=== PATIENT | female | born 1950 | race Caucasian/White ===

== ENCOUNTER → 2016-06-26 | Outpatient (CLI) | payer BC ==
[~2016-06-26] MED LIST: ACT/30 PO; CALC600T9 PO; DICL-201 PO; HYDC25 PO; LISI40TA PO; METF1000 PO; NIFE90TA PO; SIMV40TA4 PO; [UNRECOGNIZED DRUG - OTHER] PO
--- NOTE | 2016-06-27 14:08 | MAMMOGRAPHY REPORT ---
BILATERAL DIGITAL SCREENING MAMMOGRAM TOMOSYNTHESIS WITH CAD: 06/26/2016 CLINICAL HISTORY: Routine screening. Patient has no complaints. Prior history of right breast canc er. TECHNIQUE: Breast tomosynthesis in addition to standard 2D mammography was performed. Current study was also evaluated with a Computer Aided Detection (CAD) system. COMPARISON: Comparison is made to exams dated: 06/20/2015 mammogram, 06/18/2014 mammogram, 05/15/2013 mammogram, 12/22/2012 mammogram, 06/23/2012 specimen, and 06/23/2012 localization - [facility]. BREAST COMPOSITION: The tissue of both breasts is almost entirely fatty. FINDINGS: There is expected architectural distortion and dystrophic calcification at the site of pr ior lumpectomy in the 6:00 anterior right breast. There is decreasing skin thickening of the right breast as well as decreasing trabecular edema. There are scattered benign-appearing microcalcificat ions bilaterally, and stable nodularity within the left breast. No new suspicious mass, architectur al distortion or cluster of microcalcifications is seen. IMPRESSION: ACR BI-RADS CATEGORY 2: BENIGN There is no mammographic evidence of malignancy. A 1 year screening mammogram is recommended. The p atient will receive written notification of the results. Approximately 10% of breast cancers are not detected with mammography. A negative mammographic repor t should not delay biopsy if a clinically suggestive mass is present. Cara Chaney M.D. ay/:06/26/2016 21:19:07 Upper Caser: Britney ROJAS(Wood)(Chucky), [facility] letter sent: Normal 1/2 BI-RADS Code: ACR BI-RADS Category 2: Benign
== END | disposition home or self-care (01) ==
LOC: C.MAMM 13:13
PROVIDERS: ATTEND Family Medicine
DX: Z12.31 Encounter for screening mammogram for malignant neoplasm of breast (principal); Z85.3 Personal history of malignant neoplasm of breast; Z08 Encounter for follow-up examination after completed treatment for malignant neoplasm

== ENCOUNTER → 2016-08-21 | Outpatient (CLI) | payer BC ==
[2015-08-18 14:29] VITALS: BP 130/68; PULSE 88
[2016-08-21 14:46] VITALS: BP 146/81; PULSE 85; TEMP 36.7; O2SAT 96
--- NOTE | 2016-08-21 17:07 | Radiation Oncology Follow-Up ---
Radiation Oncology Follow-Up Date of Visit Aug 21, 2016. Reason For Visit Annual follow-up Radiation Completion Date 09/26/12 Diagnosis (1) Breast cancer Status: Resolved Onset Date: 06/04/2012 Permanent Comment: Abnormal right breast mammogram 05/14/2012 Status post biopsy revealing lobular carcinoma 06/04/2012 status post right breast lumpectomy and sentinel lymph node biopsy 06/23/2012 Estrogen receptor positive, progesterone receptor positive, HER-2/ajay negative Stage pTIb pN0 Oncotype DX score of 12 Status post completion of radiation therapy 09/26/2012 received 6120 cGy Last Edited By: Tawana Fierro on Jun 21, 2015 16:06 Interim History She is doing well over this past year. She denies any changes to her breast. She has an area of dryness in the inframammary fold on the right side. This was seen by her dirt shoveler and a medication was prescribed. She feels this is not particularly help the area of dryness to resolve. She denies any pain or breast. She has noted no masses or tenderness and no change of the axilla. She's had no swelling of her arm. She is on anastrozole and denies side effects. Allergies Coded Allergies: Adhesives (Verified Allergy, Mild, RED SKIN, BLISTERS, 06/19/12) Povidone (Verified Allergy, Unknown, 07/08/09) Home Medications Scheduled Calcium Carbonate-Vitamin D (Calcium + D), 1,200 MG PO DAILY Diclofenac (Voltaren), 75 MG PO BID Hydrochlorothiazide (Hctz *), 50 MG PO QAM Lisinopril (Zestril), 40 MG PO QAM Metformin Hcl (Glucophage), 1,000 MG PO BID Nifedipine (Procardia Xl), 90 MG PO DAILY Pioglitazone Hcl (Actos), 30 MG PO HS Simvastatin (Zocor), 40 MG PO QPM [Anastozole], 1 MG PO qd Review of Systems Gastrointestinal: Symptoms: WNL Oral: Symptoms: No Problems Respiratory: Symptoms: WNL Urinary: Symptoms: WNL Skin: Symptoms: No Problems Other Skin Symptoms: Patient currently has red dry flaky rash under right breast - seeing derm Breast: Right Upper Arm Measurement: 50.0 Right Mid Arm Measurement: 34.0 Right Wrist Measurement: 18.3 Left Upper Arm Measurement: 50.9 Left Mid Arm Measurement: 34.6 Left Wrist Measurement: 17.7 Arm Dominence: Right Physical Exam Vital Signs Date Time Temp Pulse Resp B/P Pulse Ox O2 Delivery O2 Flow Rate FiO2 08/21/16 14:46 36.7 85 16 146/81 96 Pain: Pain Location: None Patient Pain Scale: 0 - 10 Initial Pain Intensity: 0.0 Fatigue: None General Appearance: + obese Eyes: normal inspection, EOMI ENT: normal ENT inspection, hearing grossly normal Neck: supple, no adenopathy, thyroid normal Respiratory/Chest: lungs clear, no respiratory distress, no accessory muscle use Breast: Breast examination reveals well-healed incisions of the right breast there are no masses or tenderness no axillary adenopathy. She does have an area of dry skin along the inframammary fold which extends slightly to the nipple. Using the [place] score cosmesis she has a good outcome. The left breast showed no masses or tenderness and no axillary adenopathy. Cardiovascular: regular rate, rhythm, no gallop, no murmur Extremities: no pedal edema Neurologic/Psychiatric: no motor/sensory deficits, alert, normal mood/affect Skin: warm/dry Lymphatic: no adenopathy Additional Studies BILATERAL DIGITAL SCREENING MAMMOGRAM TOMOSYNTHESIS WITH CAD: 06/26/2016 CLINICAL HISTORY: Routine screening. Patient has no complaints. Prior history of right breast cancer. TECHNIQUE: Breast tomosynthesis in addition to standard 2D mammography was performed. Current study was also evaluated with a Computer Aided Detection (CAD ) system. COMPARISON: Comparison is made to exams dated: 06/20/2015 mammogram, 06/18/2014 mammogram, 05/15/2013 mammogram, 12/22/2012 mammogram, 06/23/2012 specimen, and [facility]. BREAST COMPOSITION: The tissue of both breasts is almost entirely fatty. FINDINGS: There is expected architectural distortion and dystrophic calcification at the site of prior lumpectomy in the 6:00 anterior right breast. There is decreasing skin thickening of the right breast as well as decreasing trabecular edema. There are scattered benign-appearing microcalcifications bilaterally, and stable nodularity within the left breast. No new suspicious mass, architectural distortion or cluster of microcalcifications is seen. IMPRESSION: ACR BI-RADS CATEGORY 2: BENIGN There is no mammographic evidence of malignancy. A 1 year screening mammogram is recommended. The patient will receive written notification of the results. Approximately 10% of breast cancers are not detected with mammography. A negative mammographic report should not delay biopsy if a clinically suggestive mass is present. Cara Chaney M.D. ay/:06/26/2016 21:19:07 Hot Frame Tender: Britney JULIAN)(Chucky), [facility] letter sent: Normal 1/2 BI-RADS Code: ACR BI-RADS Category 2: Benign Dictated by: Cara Cahney MD Assessment & Plan Plan: I gave her samples of Aquaphor to try for the dry skin of the inframammary fold. Continue with scheduled mammography. Continue regular follow-up with her primary care physician. We asked her to return to our office in 1 year. She continues on the Arimidex. She'll call if she has any questions or concerns in the interim. Total Time In Follow-Up I spent 20 minutes speaking to the patient and performing examination. I spent 15 minutes reviewing information and completing this note. Copy To Ellis Altamirano III, M.D.; Joelle Meredith PA-C
== END | disposition home or self-care (01) ==
LOC: C.ONC 14:01
PROVIDERS: ATTEND Physician Assistant Medical
DX: Z08 Encounter for follow-up examination after completed treatment for malignant neoplasm (principal); Z92.3 Personal history of irradiation; Z85.3 Personal history of malignant neoplasm of breast

== ENCOUNTER → 2017-03-29 | Outpatient (CLI) | payer BC ==
--- NOTE | 2017-03-29 15:24 | MAMMOGRAPHY REPORT ---
BILATERAL DIGITAL DIAGNOSTIC MAMMOGRAM TOMOSYNTHESIS WITH CAD AND TARGETED BILATERAL ULTRASOUND: 03/04 CLINICAL HISTORY: History of right breast cancer status post lumpectomy and radiation therapy in 2012 . The patient reports flulike symptoms approximately 2 weeks ago. Last Saturday she also noted diffu se redness and warmth of the right breast; the redness has now decreased and now the skin is peeling. She notes occasional sharp pains in the right breast. She was placed on medication for possible sh ingles. She denies any left breast symptoms. TECHNIQUE: Breast tomosynthesis in addition to standard 2D mammography was performed. Current study was also evaluated with a Computer Aided Detection (CAD) system. Bilateral CC and MLO 2-D and tomosy nthesis images were obtained. COMPARISON: Comparison is made to exams dated: 03/29/2017 ultrasound - [facility], 06/26/2016 mammogram, 06/20/2015 mammogram, 06/18/2014 mammogram, and 05/15/2013 mammogram - [facility]. BREAST COMPOSITION: There are scattered areas of fibroglandular density in both breasts. FINDINGS: Again noted are post surgical changes in the right central breast from prior lumpectomy, i ncluding stable density, architectural distortion, and coarse benign dystrophic calcifications at the lumpectomy bed. A linear scar marker denotes a scar on the right breast. There is new diffuse righ t breast skin thickening as well as trabecular thickening most prominent in the right upper outer jose j drant. There is possible mild trabecular thickening in the left upper outer quadrant. The remainder of both breasts are stable compared to prior exams, without suspicious masses, calcifications, or ar eas of architectural distortion noted. Scattered bilateral benign-appearing calcifications are not s ignificantly changed. On clinical exam of the right breast there is diffuse right breast erythema with some areas of skin p eeling, especially inferiorly and laterally. Targeted ultrasound was performed of the right breast t o evaluate the skin and trabecular thickening seen mammographically. There is diffuse thickening of the skin of the right breast. Additionally, there is diffuse hyperechogenicity of the breast parench yma which corresponds with the trabecular thickening/edema seen mammographically. No discrete mass i s seen within the breast parenchyma. Targeted ultrasound was performed of the left upper outer quadrant in the region of the possible trab ecular thickening seen mammographically. In the left breast at 2:00, approximately 15 cm from the ni pple, there is an intradermal nearly anechoic cystic 2 x 3 mm mass, which is benign given the intrade rmal location and likely represents an epidermal inclusion/sebaceous cyst. Mild skin thickening is s een in the adjacent breast in the left 2 to 3:00 breast. No suspicious masses are evident. IMPRESSION: ACR BI-RADS CATEGORY 4: SUSPICIOUS, TARGETED ULTRASOUND ACR BI-RADS CATEGORY 4: SUSPICIO US 1. New diffuse right breast skin thickening as well as trabecular thickening in the right upper outer quadrant, without a suspicious mass or fluid collection noted mammographically or sonographically. Given the clinical history of diffuse right breast erythema, considerations include mastitis or infla mmatory breast cancer. Given that the symptoms including the erythema have improved per the patient, mastitis is favored although inflammatory breast cancer cannot be excluded at this time. Recommend clinical follow-up; if the symptoms do not resolve in a timely manner then recommend surgical consult ation for a skin punch biopsy. 2. Small 3 mm intradermal cyst in the left breast at 2:00, which is benign and likely represents a s ebaceous/epidermal inclusion cyst. A phone call was made to the physician's office to confirm faxed results were received. The patient has been verbally notified of the results. Approximately 10% of breast cancers are not detected with mammography. A negative mammographic report should not delay biopsy if a clinically suggestive mass is present. Akiko Sherwood M.D. ah/:03/29/2017 13:53:48 Firmware Engineer: Christina Gomez, [facility] letter sent: Abnormal 4/5 BI-RADS Code: ACR BI-RADS Category 4: Suspicious Ultrasound BI-RADS: ACR BI-RADS Category 4: Suspici ous
== END | disposition home or self-care (01) ==
LOC: C.MAMM 08:23
PROVIDERS: ATTEND Physician Assistant
DX: L53.9 Erythematous condition, unspecified (principal); R92.8 Other abnormal and inconclusive findings on diagnostic imaging of breast; N60.02 Solitary cyst of left breast; Z85.3 Personal history of malignant neoplasm of breast

== ENCOUNTER → 2017-06-28 | Outpatient (CLI) | payer OTHER ==
--- NOTE | 2017-07-01 15:51 | MAMMOGRAPHY REPORT ---
BILATERAL DIGITAL SCREENING MAMMOGRAM TOMOSYNTHESIS WITH CAD: 06/28/2017 CLINICAL HISTORY: Asymptomatic. Personal history of breast cancer. TECHNIQUE: Breast tomosynthesis in addition to standard 2D mammography was performed. Current study was also evaluated with a Computer Aided Detection (CAD) system. COMPARISON: Comparison is made to exams dated: 03/29/2017 mammogram, 03/29/2017 ultrasound, 7 mammogram, 06/20/2015 mammogram, 06/18/2014 mammogram, and 05/15/2013 mammogram - [facility]. BREAST COMPOSITION: There are scattered areas of fibroglandular density in both breasts. FINDINGS: No suspicious masses, calcifications, or areas of architectural distortion are noted in ei ther breast. There are stable postsurgical changes in the right central breast from prior lumpectomy , including stable density, architectural distortion, and coarse benign dystrophic calcifications at the lumpectomy bed. The previously seen diffuse right breast skin thickening on the March 2017 exa m has decreased back to a baseline appearance and is benign. Scattered bilateral benign-appearing ca lcifications are not significantly changed. IMPRESSION: ACR BI-RADS CATEGORY 2: BENIGN There is no mammographic evidence of malignancy. A 1 year screening mammogram is recommended. The pa tient will receive written notification of the results. Approximately 10% of breast cancers are not detected with mammography. A negative mammographic report should not delay biopsy if a clinically suggestive mass is present. Akiko Sherwood M.D. /:06/28/2017 15:17:37 Cemetery Workers Supervisor: Christina ROJAS(Wood)(M), [facility] letter sent: Normal 1/2 BI-RADS Code: ACR BI-RADS Category 2: Benign
== END | disposition home or self-care (01) ==
LOC: C.MAMM 10:25
PROVIDERS: ATTEND Physician Assistant
DX: Z12.31 Encounter for screening mammogram for malignant neoplasm of breast (principal)

== ENCOUNTER 2024-02-04 15:53 | Inpatient (IN) ==
--- NOTE | 2024-02-04 16:37 | Emergency Department Note ---
Impression & Plan Atrial fibrillation with rapid ventricular response, Heart failure with acute decompensation, type unknown ED Provider Note NAME: LEO JIMENEZ AGE: 73 SEX: F : 1950 ARRIVES VIA: Walk-In INFORMANT: Patient ED PROVIDER(S): Alonso Nath DO CHIEF COMPLAINT: shortness of breath HPI: Patient is a 73-year-old female with a past medical history of breast cancer who presents to the ER for shortness of breath. She notes her symptoms started in December. She admits to increased weight gain of about 40 pounds since then. Her shortness of breath has gotten significantly worse over the past week. She notes that her heart rates been up intermittently. She denies any headache or change in vision. No chest pain or pressure. No dysuria, urgency, or frequency. No other exacerbating or remitting factors. No history of A-fib or any other irregular heartbeats. ADDITIONAL HISTORY OBTAINED: Per HPI Chronic Medical/Social Conditions Affecting Care: Per HPI PAST MEDICAL HISTORY:See Below PAST SURGICAL HISTORY:See Below FAMILY HISTORY:See Below SOCIAL HISTORY:See Below HOME MEDICATIONS:See Below ALLERGIES:See Below VITALS:See Below PHYSICAL EXAMINATION: GENERAL: Sitting up in bed, alert, morbidly obese EYE EXAM: normal conjunctiva. PERRL and EOM's grossly intact. OROPHARYNX: no exudate, no erythema, lips, buccal mucosa, and tongue normal and mucous membranes are moist NECK: supple, no nuchal rigidity, no adenopathy, non-tender LUNGS: Clear to auscultation. Normal chest wall mechanics HEART: no murmurs, S1 normal and S2 normal ABDOMEN: abdomen soft, non-tender, normo-active bowel sounds, no masses, no rebound or guarding. UPPER EXTREMITIES: upper extremities are grossly normal. LOWER EXTREMITIES: Pitting edema in the bilateral lower extremities tracking up to the hips NEURO EXAM: Normal sensorium, cranial nerves II-XII grossly intact, normal speech, no gross weakness of arms, no gross weakness of legs. No drift. Finger to nose intact. Gross sensation intact. MEDICAL DECISION MAKING: Patient is a 73-year-old female who presents ER for the below stated complaint. IV was established blood work was obtained. Labs show no significant leukocytosis or anemia. INR unremarkable. BMP with creatinine 1.2. Glucose was mildly elevated at 155. LFTs bilirubin was unremarkable. Troponin was negative. BNP slightly elevated at 378. Flu RSV and COVID was negative. Chest x-ray was clean. She did have extensive pitting edema. EKG confirms A-fib with RVR. She was given 10 mg bolus of Cardizem and placed on a Cardizem drip. Heart rate trended down to 100 and systolic pressures trended down to upper 90s/low 100. Held on Lasix which was my initial intent as the blood pressures trended down with the Cardizem. Will defer to the hospitalist once blood pressures rebounded slightly. Heart rate did improve significantly with the Cardizem. She was updated bedside discussed with hospitalist for further evaluation management treatment. Consults/Care Managements Discussions: Per [facility] Triage Nursing notes reviewed. Limited review of prior medical records performed Vital Signs: reviewed and remarkable for tachycardic Differential diagnosis: Cardiac ischemia, aortic dissection, pulmonary embolism, pneumothorax, pneumonia, pericarditis, myocarditis, esophageal rupture, GERD, cholecystitis, pancreatitis, musculoskeletal, as well as other pathologies. ER treatment provided: See below Diagnostics interpreted by me include EKG and cardiac monitoring as listed below: -Cardiac Monitoring: An order was placed for continuous cardiac monitoring. The monitor shows a rate of 140 with A-fib rhythm. -ECG: A-fib rate of 137 Normal axis No PVCs Nonspecific ST wave changes in the inferior lateral leads QTc 389 -Laboratory studies:Interpreted by me as stated above in [facility] and shown below. Imaging studies: Xrays: As interpreted by me: Portable AP upright 1 view of the chest shows no focal infiltrate CTs show: none Procedures:none Critical Care: I have personally spent 31 minutes of critical care time in the direct management of this patient. This includes bedside care, interpretation of diagnostic studies, and testing, discussion with consultants, patient, and family members, and other required patient management activities. This 31 minutes is in excess of all separately billable procedures. Past Med/Surg History Problem List (Updated 02/04/24 @ 19:12 by Alex Aguilar MD) Heart failure with acute decompensation, type unknown Atrial fibrillation with rapid ventricular response Social History Smoking Status: Never smoker Feels Safe at Home: Yes Allergies Allergies Allergy/AdvReac Type Severity Reaction Status Date / Time adhesive Allergy Mild RED SKIN, Verified 02/04/24 17:20 BLISTERS Home Meds Home Medications Medication Instructions Recorded Confirmed aspirin 81 mg tablet,delayed 81 mg PO HS 02/04/24 02/04/24 release atorvastatin 40 mg tablet 40 mg PO QAM 02/04/24 02/04/24 cholecalciferol (vitamin D3) 50 50 mcg PO QAM 02/04/24 02/04/24 mcg (2,000 unit) tablet (Vitamin D3) cinnamon bark 500 mg capsule 500 mg PO AMHS 02/04/24 02/04/24 (Cinnamon) diclofenac sodium 75 mg 75 mg PO DAILY PRN Pain 02/04/24 02/04/24 tablet,delayed release empagliflozin 10 mg tablet 10 mg PO QAM 02/04/24 02/04/24 (Jardiance) lisinopril 40 mg tablet 40 mg PO QAM 02/04/24 02/04/24 magnesium 500 mg tablet 15 mg PO DAILY 02/04/24 02/04/24 metformin 500 mg tablet,extended 500 mg PO QAM 02/04/24 02/04/24 release 24 hr nifedipine 90 mg tablet,extended 90 mg PO QAM 02/04/24 02/04/24 release 24 hr pioglitazone 30 mg tablet 30 mg PO HS 02/04/24 02/04/24 Results & Data (ED) Vital Signs Vital Signs - 24 hr 02/04/24 15:57 02/04/24 16:07 02/04/24 16:22 Temperature 36.7 C Temperature Source Temporal Artery Scan Pulse Rate 138 H 132 H Pulse Rate [Apical] Pulse Rhythm Pulse Rhythm [Apical] Respiratory Rate 20 Respiratory Effort / Characteristics Non-Labored Spontaneous Short of Breath SOB on Exertion Respiratory Depth Normal Respiratory Pattern Blood Pressure 127/71 Blood Pressure [Left Arm] Blood Pressure Mean 89 Blood Pressure Mean [Left Arm] Blood Pressure Position Sitting Pulse Oximetry 93 Oxygen Delivery Method Room Air Oxygen Flow Rate Sepsis Recent Fever Within 48 Hours No Sepsis New/Unexplained Change in Mental Status N/A Sepsis Action Taken by Nursing No Action Required 02/04/24 16:26 02/04/24 16:26 02/04/24 17:39 Temperature Temperature Source Pulse Rate 144 H Pulse Rate [Apical] 123 H Pulse Rhythm Irregular Pulse Rhythm [Apical] Irregular Respiratory Rate 20 19 Respiratory Effort / Characteristics Non-Labored Spontaneous Respiratory Depth Normal Respiratory Pattern Regular Blood Pressure Blood Pressure [Left Arm] 120/81 Blood Pressure Mean Blood Pressure Mean [Left Arm] 94 Blood Pressure Position Pulse Oximetry 96 96 97 Oxygen Delivery Method Room Air Room Air Room Air Oxygen Flow Rate 0 Sepsis Recent Fever Within 48 Hours Sepsis New/Unexplained Change in Mental Status Sepsis Action Taken by Nursing 02/04/24 18:00 Temperature Temperature Source Pulse Rate Pulse Rate [Apical] 102 H Pulse Rhythm Pulse Rhythm [Apical] Irregular Respiratory Rate 19 Respiratory Effort / Characteristics Non-Labored Spontaneous Respiratory Depth Normal Respiratory Pattern Regular Blood Pressure Blood Pressure [Left Arm] 104/84 Blood Pressure Mean Blood Pressure Mean [Left Arm] 90 Blood Pressure Position Pulse Oximetry 98 Oxygen Delivery Method Room Air Oxygen Flow Rate Sepsis Recent Fever Within 48 Hours Sepsis New/Unexplained Change in Mental Status Sepsis Action Taken by Nursing Laboratory Data 02/04/24 16:10 02/04/24 16:10 Lab Results 02/04/24 02/04/24 Range/Units 16:10 19:02 WBC 7.12 (4.8-10.8) K/ul RBC 4.17 L (4.20-5.40) M/uL Hgb 12.3 (12.0-16.0) g/dl Hct 38.2 (37.0-47.0) % MCV 91.6 (80.0-100.0) fL MCH 29.5 (25.0-34.0) pg MCHC 32.2 (32.0-36.0) g/dL RDW Std Deviation 54.0 H (36.4-46.3) fL RDW Coeff of Cecile 16.1 H (11.5-14.5) % Plt Count 308 (130-400) K/uL MPV 9.6 (9.4-12.4) fL Immature Gran % (Auto) 0.6 % Neut % (Auto) 79.1 % Lymph % (Auto) 11.9 % [place] % (Auto) 5.8 % Eos % (Auto) 2.2 % Baso % (Auto) 0.4 % Neut # (Auto) 5.63 (1.40-6.50) K/uL Lymph # (Auto) 0.85 L (1.20-3.40) K/uL [place] # (Auto) 0.41 (0.11-0.59) K/uL Eos # (Auto) 0.16 (0.00-0.50) K/uL Baso # (Auto) 0.03 (0.00-0.20) K/uL Immature Gran # (Auto) 0.04 (0.01-0.20) K/uL PT 11.5 (9.0-12.0) Seconds INR 1.1 (0.9-1.1) APTT 26 (21-31) Seconds PTT Ratio 1.0 Sodium 139 (136-145) mmol/L Potassium 4.4 (3.5-5.1) mmol/L Chloride 103 (98-107) mmol/L Carbon Dioxide 29 (21-32) mmol/L Anion Gap 7 (3-11) BUN 23 (6-23) mg/dl Creatinine 1.25 H (0.6-1.2) mg/dl Est Cr Clr Drug Dosing Not Reportable Est GFR ( Amer) 49.1 ml/min Est GFR (Non-Af Amer) 42.3 ml/min BUN/Creatinine Ratio 18.4 (10-20) Glucose 155 H (70-99(Fasting)) mg/dl POC Glucose 126 H (70-99) mg/dl Calcium 10.9 H (8.6-10.3) mg/dl Total Bilirubin 0.6 (0.2-1.0) mg/dl AST 10 L (13-39) U/L ALT 8 (7-52) U/L Alkaline Phosphatase 88 (34-104) U/L Troponin I High Sens 6.1 (0-14) pg/ml B-Natriuretic Peptide 378 H (0-100) pg/ml Total Protein 7.2 (6.0-8.3) gm/dl Albumin 4.0 (3.4-5.0) gm/dl Globulin 3.2 (2.5-4.0) gm/dl Albumin/Globulin Ratio 1.3 (0.9-2) SARS-CoV-2 (PCR) NEGATIVE (Negative) Influenza Type A (PCR) Negative (Neg) Influenza Type B (PCR) Negative (Neg) RSV (RT-PCR) Negative (Neg) Administered Medications Discontinued Medications Diltiazem HCl (Diltiazem Hcl 5 Mg/Ml 5 Ml Vial) 10 mg IV NOW STA Stop: 02/04/24 17:23 Last Admin: 02/04/24 17:39 Dose: 10 mg Documented By: BIJAN Co-signed By: Diltiazem HCl 125 mg/ Dextrose 125 mls @ 5 mls/hr IV .Q24H AFUA; Protocol Stop: 03/05/24 17:29 Last Admin: 02/04/24 18:50 Dose: Not Given Documented By: BIJAN Miscellaneous (Stat Iv Infusion Titration Per Protocol) 1 each N/A NOW STA Stop: 02/04/24 17:23 Last Admin: 02/04/24 18:24 Dose: Not Given Documented By: BIJAN Imaging Data Radiologist's Impression: Chest X-Ray 02/04/24 16:07 XR chest 1V portable CLINICAL HISTORY: Chest pain, nonspecific TECHNIQUE: Single frontal radiograph of the chest was obtained. Comparison: None available at the time of this dictation. FINDINGS: Exam is limited by underpenetration. Cardiomegaly is noted. The lungs are clear. No evidence of pleural effusion or pneumothorax. IMPRESSION: No acute chest disease. Cardiomegaly is noted. ACT 112: Negative or not required by law. Electronically signed by: Sunny Dennison M.D. 02/04/2024 4:54 PM Discharge Plan Visit Data Chief Complaint: Cardiac Assessment Stated Complaint: A-FIB, HEART FAILURE, [place], DOC REF ED Provider: Alonso Nath Discharge Problem: Atrial fibrillation with rapid ventricular response, Heart failure with acute decompensation, type unknown Forms Stand Alone Forms: My [facility] Prescriptions Prescriptions: No Action pioglitazone 30 mg tablet 30 mg PO HS cholecalciferol (vitamin D3) [Vitamin D3] 50 mcg (2,000 unit) Tablet 50 mcg PO QAM aspirin [Aspirin Low-Strength] 81 mg Tablet,Delayed Release (Dr/Ec) 81 mg PO HS cinnamon bark [Cinnamon] 500 mg Capsule 500 mg PO AMHS atorvastatin 40 mg tablet 40 mg PO QAM nifedipine 90 mg tablet extended release 24hr 90 mg PO QAM lisinopril 40 mg tablet 40 mg PO QAM metformin 500 mg tablet extended release 24 hr 500 mg PO QAM Jardiance 10 mg tablet 10 mg PO QAM diclofenac sodium 75 mg tablet,delayed release (DR/EC) 75 mg PO DAILY PRN (Reason: Pain) Rx Instructions: uses rarely magnesium 500 mg Tablet 15 mg PO DAILY Referrals Referrals: Joelle Meredith PA-C [Primary Care Provider] - Discharge Problem: Heart failure with acute decompensation, type unknown Qualifiers: Heart failure type: unspecified Qualified Code(s): I50.9 - Heart failure, unspecified
--- NOTE | 2024-02-04 16:56 | XRay Report ---
XR chest 1V portable CLINICAL HISTORY: Chest pain, nonspecific TECHNIQUE: Single frontal radiograph of the chest was obtained. Comparison: None available at the time of this dictation. FINDINGS: Exam is limited by underpenetration. Cardiomegaly is noted. The lungs are clear. No evidence of pleur al effusion or pneumothorax. IMPRESSION: No acute chest disease. Cardiomegaly is noted. ACT 112: Negative or not required by law. Electronically signed by: Sunny Dennison M.D. 02/04/2024 4:54 PM
[2024-02-04 17:00] LABS: Basophils # (auto) 0.03 K/uL (0.00-0.20); Basophils % (auto) 0.4 %; Eosinophils # (auto) 0.16 K/uL (0.00-0.50); Eosinophils % (auto) 2.2 %; Hematocrit (blood only) 38.2 % (37.0-47.0); Hemoglobin 12.3 g/dl (12.0-16.0); Immature Granulocytes # (auto) 0.04 K/uL (0.01-0.20); Immature Granulocytes % (auto) 0.6 %; Lymphocytes # (auto) 0.85 K/uL (1.20-3.40); Lymphocytes % (auto) 11.9 %; Mean Corpuscular Hemoglobin 29.5 pg (25.0-34.0); Mean Corpuscular Hgb Conc 32.2 g/dL (32.0-36.0); Mean Corpuscular Volume 91.6 fL (80.0-100.0); Mean Platelet Volume 9.6 fL (9.4-12.4); Monocytes # (auto) 0.41 K/uL (0.11-0.59); Monocytes % (auto) 5.8 %; Neutrophils # (auto) 5.63 K/uL (1.40-6.50); Neutrophils % (auto) 79.1 %; Platelet Count 308 K/uL (130-400); RDW Coefficient of Variation 16.1 % (11.5-14.5); Red Blood Count 4.17 M/uL (4.20-5.40); White Blood Count 7.12 K/ul (4.8-10.8)
[2024-02-04 17:13] LABS: Alanine Aminotransferase 8 U/L (7-52); Albumin Globulin Ratio 1.3 (0.9-2); Alkaline Phosphatase 88 U/L (34-104); Anion Gap 7 (3-11); Aspartate Aminotransferase 10 U/L (13-39); BUN Creatinine Ratio 18.4 (10-20); Bilirubin,Total 0.6 mg/dl (0.2-1.0); Blood Urea Nitrogen 23 mg/dl (6-23); Calcium 10.9 mg/dl (8.6-10.3); Carbon Dioxide 29 mmol/L (21-32); Chloride 103 mmol/L (98-107); Est GFR (African American) 49.1 ml/min; Est GFR (Non-African American) 42.3 ml/min; Globulin 3.2 gm/dl (2.5-4.0); Glucose 155 mg/dl (70-99(Fasting)); Potassium 4.4 mmol/L (3.5-5.1); Sodium 139 mmol/L (136-145); Total Protein 7.2 gm/dl (6.0-8.3)
[2024-02-04 17:15] LABS: INR 1.1 (0.9-1.1); Partial Thromboplastin Time 26 Seconds (21-31); Prothrombin Time 11.5 Seconds (9.0-12.0)
[2024-02-04 17:16] LABS: Influenza A virus by PCR Negative (Neg); Influenza B virus by PCR Negative (Neg); RSV by PCR Negative (Neg); SARS CoV2 RNA(COVID-19) Ceph NEGATIVE (Negative)
[2024-02-04 17:18] LABS: Troponin I High Sensitivity 6.1 pg/ml (0-14)
[2024-02-04] MEDS: dilTIAZem HCl 5 MG/ML 5 ML VIAL IV STA (17:39)
--- NOTE | 2024-02-04 17:40 | History & Physical Report ---
Date of Service February 04, 2024 Assessment & Plan (1) Atrial fibrillation with rapid ventricular response: (2) Heart failure with acute decompensation, type unknown: Plan Patient went to her PCP as she has been feeling fatigued all summer. Reported to have retaining fluids in her feet and legs; has gained 40 pounds in the last 2-3 weeks. Reports increasing shortness of breath even with minor exertion. Her Fitbit noted her irregular heart rate. Her creatinine is mildly elevated to 1.25, calcium slightly elevated 10.9 BNP elevated to 378 Chest x-ray personally reviewed; reveals cardiomegaly with mild pulmonary congestion For atrial fibrillation; will start on metoprolol tarttate 25 mg every 6 hour; [id number] score of at least 3, echo pending. Will start on heparin. For CHF; will start on Lasix IV twice daily. Strict input and output monitoring. Will hold lisinopril, nifedipine for the time being as her blood pressure is on the lower side. 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 Started on insulin. Will need to stop pioglitazone Hypertensionhold lisinopril, nifedipine. Started on metoprolol. Dyslipidemiacontinue Lipitor. Aspirin currently on hold; seems to be on it for primary prevention. Discussed with at bedside. Full code DVT prophylaxis heparin Time spent evaluating patient, direct bedside care, chart review, placing orders, interpretation of diagnostic studies, discussion with consultants, patient, and family members, as well as other required patient management activities is 75 minutes Please note the above document was generated using voice recognition software. It may contain grammatical, syntax or spelling errors. Any formal questions or concerns about the content, text or information contained within the body of this dictation should be directly addressed to the provider for clarification History of Present Illness Chief Complaint: Referred for atrial fibrillation with RVR Primary Care Provider: Joelle Meredith PA-C Patient is a 73-year-old female with possible history of primary hyperparathyroidism, dyslipidemia, type 2 diabetes mellitus, hypertension, CKD stage IIIb, morbid obesity, history of breast cancer Patient went to her PCP as she has been feeling fatigued all summer. She was reported to have retaining fluids in her feet and legs; has gained 40 pounds in the last 2-3 weeks. Reports increasing shortness of breath even with minor exertion. Her Fitbit noted her irregular heart rate. Patient was referred for admission to our ED. Patient has only has remote echo from 2002 which showed normal EF. On presentation to the ED, patient was normotensive, afebrile and was in atrial fibrillation. Her creatinine is mildly elevated to 1.25, calcium slightly elevated 10.9 BNP elevated to 378 Chest x-ray personally reviewed; reveals cardiomegaly with mild pulmonary congestion Patient was referred for admission to the hospital. Allergies Allergy/AdvReac Type Severity Reaction Status Date / Time adhesive Allergy Mild RED SKIN, Verified 02/04/24 17:20 BLISTERS Home Medications Medication Instructions Recorded Confirmed Type aspirin 81 mg tablet,delayed 81 mg PO HS 02/04/24 02/04/24 History release atorvastatin 40 mg tablet 40 mg PO QAM 02/04/24 02/04/24 History cholecalciferol (vitamin D3) 50 50 mcg PO QAM 02/04/24 02/04/24 History mcg (2,000 unit) tablet (Vitamin D3) cinnamon bark 500 mg capsule 500 mg PO AMHS 02/04/24 02/04/24 History (Cinnamon) diclofenac sodium 75 mg 75 mg PO DAILY PRN Pain 02/04/24 02/04/24 History tablet,delayed release empagliflozin 10 mg tablet 10 mg PO QAM 02/04/24 02/04/24 History (Jardiance) lisinopril 40 mg tablet 40 mg PO QAM 02/04/24 02/04/24 History magnesium 500 mg tablet 15 mg PO DAILY 02/04/24 02/04/24 History metformin 500 mg tablet,extended 500 mg PO QAM 02/04/24 02/04/24 History release 24 hr nifedipine 90 mg tablet,extended 90 mg PO QAM 02/04/24 02/04/24 History release 24 hr pioglitazone 30 mg tablet 30 mg PO HS 02/04/24 02/04/24 History Past Med/Surg History Problem List (Updated 02/04/24 @ 19:12 by Alex Aguilar MD) Heart failure with acute decompensation, type unknown Atrial fibrillation with rapid ventricular response Social History Smoking Status: Never smoker Feels Safe at Home: Yes Physical Exam Physical Exam: Constitutional: Alert oriented x 3; morbidly obese. Respiratory: Bilateral clear breath sounds. Cardiovascular: Irregular, no murmur, no edema Vessels: no JVD or carotid bruit Chest: normal inspection of chest Abdomen: normal bowel sounds, soft, nontender, no hepatosplenomegaly Musculoskeletal: 3+ pitting edema present up to knee Neurologic: PERRL, EOMI, accommodation nl, no face palsy, no dysarthria CN's II- XI intact bilaterally and moves all extremities Psychiatric: A+Ox3, euthymic affect Results & Data Results & Data Vital Signs (Past 12 Hours) Vital Signs Temp Pulse Resp BP Pulse Ox O2 Del Method O2 Flow Rate 02/04/24 16:26 144 H 20 96 Room Air 02/04/24 16:26 96 Room Air 0 02/04/24 16:22 132 H 02/04/24 15:57 36.7 C 138 H 20 127/71 93 Room Air
[2024-02-04] MEDS ORDERED: GLUCAGON FOR INJ 1 MG VIAL SQ PRN (18:04)
[2024-02-04] MEDS ORDERED: GLUCOSE 40% GEL 15 GM TUBE PO PRN (18:04)
[2024-02-04] MEDS ORDERED: GLUCOSE 10 TAB/TUBE PO PRN (18:04)
[2024-02-04] MEDS ORDERED: CARBOHYDRATES FOR HYPOGLYCEMIA PO PRN (18:04)
[2024-02-04] MEDS ORDERED: DEXTROSE 50% 50 ML SYRINGE IV PRN (18:04)
[2024-02-04] MEDS: STAT IV Infusion **Titration per Protocol STA (18:24)
[2024-02-04] MEDS ORDERED: Heparin IV Adult Wt-Based Low-Dose w/ INITIAL Bolus Protocol IV STA (18:38)
[2024-02-04] MEDS: dilTIAZem HCL 125 MG in DEXTROSE 5% 100 ML IV SCH (18:50)
[2024-02-04 19:37] LABS: Thyroid Stimulating Hormone 7.229 uIu/ml (0.300-4.500)
[2024-02-04] MEDS: INSULIN ASPART PER UNIT CHARGE SC SCH (19:37)
[2024-02-04] MEDS: METOPROLOL TARTRATE 25 MG TAB PO SCH (19:38)
[2024-02-04] MEDS: HEPARIN SOD (PORCINE) 1000 UNIT/ML IV ONE (19:39)
[2024-02-04] MEDS: HEPARIN SODIUM/DEXTROSE 25,000 UNITS/500 ML BAG IV SCH (19:39)
[2024-02-04 20:13] LABS: T4 Free Thyroxine 1.15 ng/dl (0.61-1.60)
[2024-02-04] MEDS ORDERED: ONDANSETRON INJ 2 MG/ML 2 ML VIAL IV PRN (21:18)
[2024-02-04] MEDS ORDERED: POLYETHYLENE (MIRALAX) 17 GM PACK PO PRN (21:18)
[2024-02-04] MEDS ORDERED: ACETAMINOPHEN 325 MG TAB PO PRN (21:18)
[2024-02-05 02:50] LABS: Hematocrit (blood only) 35.5 % (37.0-47.0); Hemoglobin 11.4 g/dl (12.0-16.0); Mean Corpuscular Hemoglobin 29.2 pg (25.0-34.0); Mean Corpuscular Hgb Conc 32.1 g/dL (32.0-36.0); Mean Corpuscular Volume 90.8 fL (80.0-100.0); Mean Platelet Volume 9.7 fL (9.4-12.4); Platelet Count 283 K/uL (130-400); RDW Coefficient of Variation 15.9 % (11.5-14.5); RDW Standard Deviation 53.2 fL (36.4-46.3); Red Blood Count 3.91 M/uL (4.20-5.40); White Blood Count 6.65 K/ul (4.8-10.8)
[2024-02-05 02:59] LABS: BUN Creatinine Ratio 20.3 (10-20); Calcium 10.5 mg/dl (8.6-10.3); Creatinine Clr Calc Pharmacy 65.5 ml/min; Est GFR (African American) 52.6 ml/min; Est GFR (Non-African American) 45.4 ml/min; Potassium 4.2 mmol/L (3.5-5.1)
--- OUTSIDE RECORDS SUMMARY | 2024-02-05 03:01 | External Medical Summary | Summary of Care ---
Author Name Unknown Organization [facility] Address [address] [place] [address] Phone [phone] Care Team Providers Care Cotton Broker Name Role Phone Adarsh VALENTE MD, Ellis Davis Primary Care Provider [phone] Reason for Visit * Reason Onset Date Comments Encounter Created in Error 01/26/2024 Encounter Details Date Type Department Care Team (Late st Contact Info) Description 01/26/2024 Telephone Family Practice [facility] [address] [place] [address] Reza Knott MD [address] [place] [address] Encounter Created in Error Allergies Active Allergy Reactions Criticality Noted Date Comments Adhesive Tape 11/25/2008 sore sensitive skin Penicillins Medium 01/14/2024 Not effective on pt Povidone 07/08/2009 documented as of this encounter (statuses as of 01/26/2024) Medications Medication Sig Dispensed Refills Start Date End Date Status Blood Glucose Monitoring Suppl (ONETOUCH ULTRA SYSTEM) W/DEVICE KIT Use up to four times a day as directed 1 Kit 12/19/2016 Active Aspirin 81 MG TabletIndications:Ty pe 2 diabetes mellitus with hemoglobin A1c goal of less than 7.0% ([facility]) Take 1 Tab by mouth daily. 30 Tab 12/19/2016 Active Vitamin D 50 MCG (1999 UT) Oral Capsule Take 2,000 Units by mouth in the morning. Active OneTouch Ultra In Vitro Strip (Glucose Blood)Indications:Ty pe 2 diabetes mellitus with hemoglobin A1c goal of less than 7.5% (HCC) USE UP TO FOUR TIMES DAILY DIRECTED 400 Strip 2 03/16/2023 Active AlyshaElizabeth Krueger Lancorly 30GIndications:Type 2 diabetes mellitus with stage 3 chronic kidney disease and hypertension (HCC) USE TO CHECK GLUCOSE UP TO 4 TIMES DAILY DIRECTED 400 Each 2 03/16/2023 Active Magnesium 400 MG Oral Tablet Take by mouth. Active Atorvastatin Calcium 40 MG Oral Tablet (Lipitor) Take 1 Tablet by mouth in the morning. 90 Tablet 1 08/27/2023 Active Lisinopril 40 MG Oral TabletIndications:HT N, goal below 140/90 Take 1 Tablet by mouth in the morning. 90 Tablet 2 08/27/2023 Active Diclofenac Sodium 75 MG Oral Tablet Delayed Release (Voltaren)Indication s:Primary localized osteoarthrosis, lower leg, unspecified laterality Take 1 Tablet by mouth in the morning. With food.. 90 Tablet 1 08/27/2023 Active Additional Information Patient not taking.Reported on 01/16/2024 metFORMIN HCl ER 500 MG Oral Tablet Extended Release 24 Hour (Glucophage XR)Indications:Type 2 diabetes mellitus with diabetic peripheral angiopathy without gangrene, unspecified whether usp insulin use (HCC) Take 1 Tablet by mouth in the morning. 90 Tablet 1 08/27/2023 Active NIFEdipine ER Osmotic Release 90 MG Oral Tablet Extended Release 24 Hour (Procardia XL)Indications:HTN, goal below 140/90 Take 1 Tablet by mouth in the morning. 90 Tablet 1 08/27/2023 Active Pioglitazone HCl 30 MG Oral Tablet (Actos) Take 1 Tablet by mouth in the morning. 90 Tablet 2 08/27/2023 Active Cinnamon 500 MG Oral Capsule Take 1 Capsule by mouth in the morning and 1 Capsule before bedtime. Active Empagliflozin 10 MG Oral Tablet (Jardiance) Take 1 Tablet by mouth in the morning. 90 Tablet 3 01/14/2024 Active documented as of this encounter (statuses as of 01/26/2024) Active Problems Problem Noted Date Diagnosed Date Hyperparathyroidism, primary 01/14/2024 Type 2 diabetes mellitus wit h stage 3 chronic kidney disease and hypertension 08/27/2023 Chronic kidney disease, stage 3b 11/15/2020 Overview: Per CKD protocol Hypertension associated with stage 3b chronic kidney disease due to type 2 diabetes mellitus 10/11/2020 Overview: Per CKD protocol Type 2 diabetes mellitus wit h diabetic peripheral angiopathy without gangrene 07/27/2020 History of lobular carcinoma of breast 9 Disorder of parathyroid gland, unspecified 06/05 Morbid obesity with BMI of 50.0-59.9, adult 12/01 Diabetes mellitus with perip heral angiopathy without gangrene 12/19/2017 Elevated parathyroid hormone 12/21/2016 [facility] current use of aromatase inhibitor HTN, goal below 140/90 08/08/2015 Overview: Per HTN Protocol #27. DYSLIPIDEMIA, GOAL LDL BELOW 100 05/12/2009 Overview: Per Lipid Taxonomy. History of malignant melanoma of skin 03/15/2009 Overview: History MELANOMA low lateral R neck: pT1a 0.53mm/172.5 Status post joint replacement 03/08/2008 ADVANCE DIRECTIVE INFORMATION 05/08/2006 Overview: No, Advance Directive brochure given to patient at prior appointment. LOC PRIM [id number] 12/11/2004 Generalized osteoarthritis documented as of this encounter (statuses as of 01/26/2024) Resolved Problems Problem Noted Date Diagnosed Date Resolved Date Lobular carcinoma of right breast 07/27/2020 03/08/2021 Type 2 diabetes mellitus wit h stage 3 chronic kidney disease and hypertension 12/19/2017 10/14/19 21 Overview: Per CKD protocol Prediabetes 07/16/2017 12/19/2017 Overview: Per Prediabetes protocol #1 Diabetes mellitus due to und erlying condition with diabetic chronic kidney disease 04/24/2017 Kidney disease, chronic, sta ge III (GFR 30-59 ml/min) 02/14/2015 01/18/2018 Overview: Per CKD protocol #1 Lobular breast cancer 07/16/20122018 Lobular carcinoma of breast 06/18/2012 04/24/2017 BMI 50.0-59.9, adult 06/18/201218/ 018 HTN, GOAL BELOW 140/80 01/21/201209/07 Overview: Per HTN Protocol #27. Obesity, morbid (more than 1 00 lbs over ideal weight or BMI > 40) 08/30/2009 03/07/2017 Overview: Per Obesity Taxonomy ICD-10 update of inactive term HTN, GOAL BELOW 130/80 06/29/200901/23 Overview: Per HTN Taxonomy. Type 2 diabetes mellitus wit h hemoglobin A1c goal of less than 7.0% 03/17/2009 04/24/2017 Overview: Modified per Diabetes protocol #14. ICD-10 update of inactive term Dyslipidemia, goal LDL below 160 09/10/2007 05/12/2009 Overview: Per Lipid Taxonomy. DM type 2, not at goal 10/23/200603/17 Overview: Modified per Diabetes protocol #14. HTN, goal below 140/90 06/29 Overview: Per HTN Taxonomy. Undiagnosed cardiac murmurs 06/21/2017 Morbid obesity, BMI not known 08/30/2009 Overview: Per Obesity Taxonomy documented as of this encounter (statuses as of 01/26/2024) Immunizations Name Administration Dates Next Due COVID-19 mRNA, LNP-s, No Pre serve, 2-Dose Series (FanLib) 05/16/2021,09/15/2020,08/25/2020 COVID-19, MRNA-LNP, 23-24, P F, 30 MCG/0.3 mL, 12 YRS AND ABOVE, IM ([employer]-Comirnat) 05/15/2023 Covid-19, Mrna, Lnp-s, Pf, B ivalent, 30 Mcg, IM, 12 yrs and above (Pfizer) 03/08/2022 Pneumococcal Conjugate Vacc, 13 Valent (Prevnar) 12/15/2014 Pneumococcal Polysaccharide PPV23 (Pneumovax) 12/20/2015,02/05/2007 Season Influenza, Quad, PF, Adjuvanted, 65+ Yrs, IM (FLUAD) 04/22/2020 Seasonal Influenza, PF, 6 M & above, IM , (FluLaval or Fluzone) 06/11/2018 Seasonal Influenza, QUAD, wi th Preserv, 6 mons & Above, 0.5 mL, IM 04/11/2017 Seasonal Influenza, Quadriva lent Hd (Fluzone Hd) 02/26/2023,02/22/2022,02/22/2021 Seasonal Influenza, Quadriva lent, No Preserve, IM 06/21/2016,06/17/2015 Seasonal Influenza, Split, I IV3, With Preserve, Inj 06/17/2014,06/05/2013,05/30/2012,03/29,03/28/2010,03/28/2009,03/08/2008 ,04/09/2006 TD, Preservative Free 05/08/2006 TDAP (age 10 and older)(Boostrix) 02/26/2022,11/2011 Zoster Vaccine Recombinant (Shingrix) 07/27/2019 ,03/05/2019 documented as of this encounter Social History Tobacco Use Types Packs/Day Years Used Date Smoking Tobacco: Never Smokeless Tobacco: Never Alcohol Use Standard Drinks/Week Comments Yes 0 (1 standard drink = 0.6 oz pur e alcohol) ocassional PHQ-2 Answer Date Recorded PHQ Adult Total Score 0 08/22/2022 Hunger Vital Sign Answer Date Recorded Within the past 12 months, y ou worried that your food would run out before you got the money to buy more. Never true 01/15/20 24 Within the past 12 months, t he food you bought just didn't last and you didn't have money to get more. Never true 01/15/2024 Childcare Answer Date Recorded Do you feel overwhelmed with taking care of a child, family member or friend? No 01/15/2024 Does your family need help f inding childcare? (Household - for ages 0-17 years) Not on file 01/15/2024 Clothing Answer Date Recorded Have you been unable to get clothing when it was really needed? No 01/15/2024 Is your family able to get c lothes or diapers when needed? (Household - for ages 0-17 years) Not on file 01/15/2024 Personal Safety Answer Date Recorded Do you feel unsafe or have concerns for your saf ety? No 01/15/2024 Do you have concerns for you r family's safety? (Household - for ages 0-17 years) Not on file 01/15/2024 Utilities Answer Date Recorded Do you have trouble paying y our heating, water, or electric bill? No 01/15/2024 Is your family able to pay t he heat, water, or electric bill? (Household - for ages 0-17 years) Not on file 01/15/2024 Does your family have access to good internet? (Household - for ages 0-17 years) Not on file 01/15/2024 Employment Status Answer Date Recorded Are you unemployed or without regular income? No 01/15/2024 Does the household have a re lar source of income? (Household - for ages 0-17 years) Not on file 01/15/2024 Social Connections Answer Date Recorded How often do you feel lonely or isolated from th ose around you? Never 01/15/2024 Financial Resource Strain Answer Date R ecorded Do you have any trouble payi ng for your medications, or do you think you might in the future? No 01/15/2024 Does your family have troubl e paying for medicine? (Household - for ages 0-17 years) Not on file 01/15/2024 Transportation Needs Answer Date Record ed Do you have trouble getting a ride to medical visits or work? (Adult - for ages 18 years and over) Not on file 01/15/2024 Does your family have a hard time getting a ride to doctors visits? (Household - for ages 0-17 years) Not on file 01/15/2024 Has lack of transportation k ept you from medical appointments, meetings, work, or from getting things needed for daily living? Check all that apply. No 01/15/2024 Do you (or your family) have trouble finding or paying for a ride (transportation)? (Household - for ages 0-17 years) Not on file 01/15/2024 Housing Stability Answer Date Recorded Do you currently live in a s helter or have no steady place to sleep at night? No 01/15/2024 Do you think you are at risk of becoming homeless? (Adult - for ages 18 years and over) Not on file 01/15/2024 Does your family worry about paying for your home or becoming homeless? (Household - for ages 0-17 years) Not on file 0 01/15/2024 Are you homeless or worried that you might be in the future? No 01/15/2024 Are you (or your family) ashley eless or worried that you might be in the future? (Household - for ages 0-17 years) Not on file Food Insecurity Answer Date Recorded Do you need food for this week? No 01/15/2024 Are you able to get enough f ood for your family? (Household - for ages 0-17 years) Not on file 01/15/2024 Does your family need food t his week? (Household - for ages 0-17 years) Not on file 01/15/2024 Do you always have enough fo od for your family? (Household - for ages 0-17 years) Not on file 01/15/2024 Sex and Gender Information Value Date Recorded Sex Assigned at Female 07/27/2019 11:08 AM EST Gender Identity Female 07/27/2019 11:08 AM EST Sexual Orientation Straight 07/27/2019 11 :08 AM EST Job Start Date Occupation Industry Not on file Not on file Not on file documented as of this encounter Plan of Treatment Upcoming Encounters Date Type Department Care Team (Late st Contact Info) Description 01/28/2024 12:00 PM EDT Appointment Radiology, [address] [place] [place] [address] 01/28/2024 3:00 PM EDT Appointment Radiology, [address] [place] [address] 02/20/2024 9:00 AM EDT Office Visit [facility] [address] [place] [address] Joelle Meredith PA-C [address] [place] [address] 02/25/2024 2:15 PM EDT Office Visit Inter[facility] Center, [facility] [address] [place] [address] Tyrell Castro DO [address] [place] [phone] 02/27/2024 11:00 AM EDT Office Visit [facility] [place] [address] Joelle Meredith PA-C [address] [place] [address] 07/22/2024 3:00 PM EST Office Visit Endocrinology [address] [place] [phone] Julian Freitas MD [address] [facility] [place] [address] Health Maintenance Due Date Last Done Comments Fecal Occult Blood Test 1994 Sigmoidoscopy 1994 Adult Wellness Visit 12/08/2015 Colonoscopy 03/04/2019 03/04/2009 Depression Screening 08/23/2023 08/22/2022, 12/16/19 15 Albumin/Creatinine Ratio 09/01/2023 023, 08/15/2021, 07/28/2020, Additional history exists Influenza Vaccine (FLU shot) (#1) 2024 02/26/2023, 02/22/2022, 02/22/2021, Additional history exists B-12 03/06/2024 03/06/2023, 02/02, 02/22/2021, Additional history exists GFR 07/16/2024 01/14/2024, 08/02, 03/06/2023, Additional history exists HbA1c 07/16/2024 01/14/2024, 08/02, 03/06/2023, Additional history exists Diabetic Foot Exam 08/26/2024 08/27/2023, 0 02/22/2022, 02/22/2021, Additional history exists CKD PHOS USE SMARTSET 98643 09/26/2024 04/2 11/2023, 08/27/2023, 03/06/2023, Additional history exists Cologuard 10/12/2024 10/12/2021, 05/0 09/2021, 10/04/2021 Colorectal Cancer Screening 10/12/2024 Mammogram 10/15/2024 10/16/2023, 09/02, 09/20/2022, Additional history exists Diabetic Eye Exam 01/12/2025 01/13/2024, , 01/09/2022, Additional history exists CKD HGB USE SMARTSET 47854 01/13/202501/13, 08/27/2023, 08/31/2022, Additional history exists Lipid Panel 08/26/2028 08/27/2023, 08/03, 08/15/2021, Additional history exists DXA Scan 01/14/2031 01/15/2024, 03/05/2016 DTaP,Tdap,and Td Vaccines (3 - Td or Tdap) 02/27/2032 02/26/2022, 01/07/2012, 05/08/2006, Additional history exists Pneumococcal Vaccine: 65+ Years Completed 12/20/2015, 12/15/2014, 02/05/2007 Zoster Vaccines Completed 07/27/2019, 03/05/2019 COVID-19 Vaccine Discontinued 05/15/2023, 11/2021, 05/16/2021, Additional history exists HPV (Gardasil) Vaccine Aged Out No lo nger eligible based on patient's age to complete this topic Hepatitis B Vaccine Aged Out No longe r eligible based on patient's age to complete this topic MENINGOCOCCAL (MENACTRA/MENVEO) Aged Out No longer eligible based on patient's age to complete this topic documented as of this encounter Medical Devices Not on filedocumented as of this encounter Care Teams Cotton Broker Relationship Specialty Start Date End Date Ellis Altamirano III, MD [address] [place] [address] PCP - General Family Medicine 07/23/18 documented as of this encounter
--- OUTSIDE RECORDS SUMMARY | 2024-02-05 03:01 | External Medical Summary | Summary of Care ---
Author Name Unknown Organization [facility] Address [address] [place] [address] Phone [phone] Care Team Providers Care Sales Recruiting Coordinator Name Role Phone Adarsh VALENTE MD, Ellis Davis Primary Care Provider Reason for Referral * Precert (Within 10 days (routine)) - Authorized Specialty Diagnoses / Procedures Referred By Contac t Referred To Contact Radiology Diagnoses Hyperparathyroidism (HCC) Hypercalcemia Procedures NM PARATHYROID SCAN (SPECT & CT) Julian Freitas MD [address] [place] [address] Referral ID Status Reason Start Date Expiration Date V isits Requested Visits Authorized [id number] Authorized 01/16/[phone] Reason for Visit * Precert (Within 10 days (routine)) - Authorized Specialty Diagnoses / Procedures Referred By Contac t Referred To Contact Radiology Diagnoses Hyperparathyroidism (HCC) Hypercalcemia Procedures NM PARATHYROID SCAN (SPECT & CT) Julian Freitas MD [address] [place] [address] Referral ID Status Reason Start Date Expiration Date V isits Requested Visits Authorized [id number] Authorized 01/16/[phone] Encounter Details Date Type Department Care Team (Latest Contact Info) Description 01/28/2024 11:50 AM EDT - 01/28/2024 2:36 PM EDT Hospital Encounter Radiology, [facility] [address] [place] [address] Arrived Discharge Disposition: Home - Self Care Allergies Active Allergy Reactions Criticality Noted Date Comments Adhesive Tape 11/25/2008 sore sensitive skin Penicillins Medium 01/14/2024 Not effective on pt Povidone 07/08/2009 documented as of this encounter (statuses as of 01/29/2024) Medications Medication Sig Dispensed Refills Start Date End Date Status Blood Glucose Monitoring Suppl (Farmainstant ULTRA SYSTEM) W/DEVICE KIT Use up to four times a day as directed 1 Kit 12/19/2016 Active Aspirin 81 MG TabletIndications:Ty pe 2 diabetes mellitus with hemoglobin A1c goal of less than 7.0% (HCC) Take 1 Tab by mouth daily. 30 Tab 12/19/2016 Active Vitamin D 50 MCG (2000 UT) Oral Capsule Take 2,000 Units by mouth in the morning. Active PrimeAgain,Inc Ultra In Vitro Strip (Glucose Blood)Indications:Ty pe 2 diabetes mellitus with hemoglobin A1c goal of less than 7.5% (HCC) USE UP TO FOUR TIMES DAILY DIRECTED 400 Strip 2 03/16/2023 Active [employer]Again[employer] Delica Lancets 30GIndications:Type 2 diabetes mellitus with stage 3 [...] diabetic peripheral angiopathy without gangrene, unspecified whether predatory animal exterminator insulin use (HCC) Take 1 Tablet by [...] the morning. 90 Tablet 3 01/14/2024 Active Hospital, Clinic, or Other Facility Administered Medication Ordered Dose Route Frequency Start Date End Date Status sodium chloride 0.9 % flush/inj 10 mL 10 mL IV PUSH ONCE 01/28/2024 01/28/2024 Ended documented as of this encounter (statuses as of 01/29/2024) Active Problems Problem Noted Date Diagnosed Date [...] without gangrene 12/19/2017 Elevated parathyroid hormone 12/21/2016 meterman current use of aromatase inhibitor HTN, goal below 140/90 08/08/2015 Overview: Per HTN Protocol #27. DYSLIPIDEMIA, GOAL LDL BELOW 100 05/12/2009 Overview: Per Lipid Taxonomy. History of malignant melanoma of skin 03/15/2009 Overview: History MELANOMA low lateral R neck: pT1a 0.53mm/172.5 Status post joint replacement 03/08/2008 ADVANCE DIRECTIVE INFORMATION 05/08/2006 Overview: No, Advance Directive brochure given to patient at prior appointment. LOC PRIM [id number] 12/11/2004 Generalized osteoarthritis documented as of this encounter (statuses as of 01/29/2024) Resolved Problems Problem Noted Date Diagnosed Date [...] of breast 06/18/2012 04/24/2017 BMI 50.0-59.9, adult 06/18/2012 018 HTN, GOAL BELOW 140/80 01/21/201209/07 Overview: [...] as of this encounter (statuses as of 01/29/2024) Immunizations Name Administration Dates Next Due COVID-19 mRNA, LNP-s, No Pre serve, 2-Dose Series ([employer]) 05/16/2021,09/15/2020,08/25/2020 COVID-19, MRNA-LNP, 23-24, P F, 30 MCG/0.3 mL, 12 YRS AND ABOVE, IM ([facility]) 05/15/2023 Covid-19, Mrna, Lnp-s, Pf, B ivalent, 30 Mcg, IM, 12 yrs and above ([employer]) 03/08/2022 Pneumococcal Conjugate Vacc, 13 Valent (Prevnar) [...] 01/15/2024 Does the household have a re gular source of income? (Household - for ages [...] Care Team (Late st Contact Info) Description 02/20/2024 9:00 AM EDT Office Visit [facility] [place] [address] Joelle Meredith PA-C [address] [place] [address] 02/25/2024 2:15 PM EDT Office Visit [facility] [address] [facility] [place] [address] Tyrell Castro DO [address] [phone] 02/27/2024 11:00 AM EDT Office Visit [facility] [address] [place] [address] Joelle Meredith PA-C [address] [facility] [place] [address] 07/22/2024 3:00 PM EST Office Visit Endocrinology [address] [place] [phone] Julian Freitas MD [address] [facility] [place] [address] Pending Results Name Type Priority Associated Diagnoses Date /Time NM PARATHYROID SCAN (SPECT & CT) Medical Imaging Routine Hyperparathyroidism (HCC) Hypercalcemia 01/28/2024 3:45 PM EDT Health Maintenance Due Date Last Done Comments [...] Additional history exists CKD PHOS USE SMARTSET 05637 09/26/20242 11/2023, 08/27/2023, 03/06/2023, Additional history exists Cologuard 10/12/2024 10/12/2021, 05/0 09/2021, 10/04/2021 Colorectal Cancer Screening 10/12/2024 Mammogram 10/15/2024 10/16/2023, 09/02, 09/20/2022, Additional history exists Diabetic Eye Exam 01/12/2025 01/13/2024, , 01/09/2022, Additional history exists CKD HGB USE SMARTSET 81470 01/13/202501/13, 08/27/2023, 08/31/2022, Additional history exists Lipid Panel 08/26/2028 08/27/2023, 08/03, 08/15/2021, Additional history exists DXA Scan 01/14/2031 01/15/2024, 03/05/2016 DTap/Tdap Vaccines (3 - Td or Tdap) 02/27/2032 [...] Not on filedocumented as of this encounter Procedures Procedure Name Priority Date/Time Associated Diagnosis Comments NM PARATHYROID SCAN (SPECT & CT) Routine 01/28/2024 3:45 PM EDT Hyperparathyroidi sm (HCC) Hypercalcemia Procedure Note - Richelle Payne DO / Elisha Fleming MD - 01/28/2024 3:45 PM EDTThis note is in progress. EXAM NM PARATHYROID SCAN (PLANAR AND SPECT-CT) - 01/28/2024 3:45 pm HISTORY Primary hyperparathyroidism. Evaluate for parathyroid adenoma COMPARISON Ultrasound neck 01/20/2024 TECHNIQUE Following the intravenous administration of 25.8 mCi of Tc-99m sestamibi,planar and SPECT imaging was performed immediately post injection.Delayed planar and SPECT imaging was performed after three hours.Low-dose CT of the neck was performed and fused with the SPECT images on [employer]ot[employer] workstation. FINDINGS PLANAR IMAGING: Immediate focal nodular radiotracer uptake in the right thyroid lobe withno significant washout on the delayed images.Normal salivary glandactivity on the immediate images with significant washout of radiotracerfrom the thyroid on the delayed images. SPECT/FUSION: Focal nodular increased activity in the right thyroid gland. ADDITIONAL CT FINDINGS: Limited evaluation of discrete nodular uptake in the right thyroid lobedue to noncontrast exam. Bilateral small pleural effusions, greater onright. Bilateral sub 5 mm nodules, likely inflammatory foci. Mildatherosclerosis of the aorta and coronary arteries. Benign appearingright breast calcific foci, likely oil cysts. Osseous degenerativechanges. IMPRESSION IMPRESSION This report is a preliminary interpretation by a resident physician and issubject to changes following review by an attending radiologist. Be sureto review the final report for any discrepancies. Persistent intense focal nodular radiotracer uptake in the right thyroidlobe, suspicious for parathyroid adenoma, with no discrete correlate onthe limited noncontrast CT neck. Recommend 4D CT neck with contrast forfurther evaluation. documented in this encounter Visit Diagnoses Diagnosis Hyperparathyroidism (HCC) Hyperparathyroidism, unspecified Hypercalcemia documented in this encounter Administered Medications Inactive Administered Medications - up to 3 most recent administrations Medication Order MAR Action Action Date Dose Rate Site sodium chloride 0.9 % flush/inj 10 mL 10 mL, IV Push, ONCE, On Sat01/28/24 at 1223, For 1 dose, Do not flush if lock, PICC, or central line not in place; IV infusing or unable to flush., Radiology Medication Routing (Non-IR) Given 01/28/2024 12:15 PM EDT 10 mL Hand Left Technetium Tc 99m Sestamibi (Sestamibi) inj 25 millicurie 25 millicurie, Intravenous, ONCE, On Sat01/28/24 at 1223, For 1 dose, Radiology Medication Routing (Non-IR) Given 01/28/2024 12:15 PM EDT 25.8 millicuries Hand Left documented in this encounter Care Teams Sales Recruiting Coordinator Relationship Specialty Start Date End Date Ellis Altamirano III, MD [address] [place] [address] PCP - General Family Medicine 07/23/18 documented as of this encounter
--- OUTSIDE RECORDS SUMMARY | 2024-02-05 03:01 | External Medical Summary | Summary of Care ---
Author Name Unknown Organization [facility] Address [address] [place] [address] Phone [phone] Care Team Providers Care Pull Up Hand Name Role Phone Adarsh VALENTE MD, Ellis Davis Primary Care Provider [phone] Reason for Referral * Evaluate & Treat - Unlimited Visits (Within 10 days (routine)) - Authorized Specialty Diagnoses / Procedures Referred By Katya adams Referred To Contact Otolaryngology Diagnoses Hyperparathyroidism (HCC) Hypercalcemia Thao Salinas MD [address] [place] [address] Referral ID Status Reason Start Date Expiration Date Visits Requested Visits Authorized [id number] Authorized Specialty Services Required 01/31/2024 999 [id number] Question Answer Referral Priority Within 10 days (routine) Where should this appointment be scheduled? [facility] Reason for Referral Thyroid/Parathyroid Specific Condition: Parathyroid Has the patient had a Serum Calcium, 24hr Urine Calcium, 25-Hydroxy Vitamins D, and PTH levels in the past 6 months? Yes Comments Primary hyperparathyroidism with suspected parathyroid adenoma on parathyroid SPECT CT. 4D CT neck was not pursued due to CKD issues. Indication for surgery: CKD, corrected calcium more than 1 mg/dL above upper limit of normal Thanks * Precert (Within 10 days (routine)) - Authorized Specialty Diagnoses / Procedures Referred By Katya adams Referred To Contact Radiology Diagnoses Hyperparathyroidism (HCC) Hypercalcemia Procedures NM PARATHYROID SCAN (SPECT & CT) Thao Salinas MD [address] [place] [address] Referral ID Status Reason Start Date Expiration Date V isits Requested Visits Authorized [id number] Authorized 01/16/2024 999 999 Reason for Visit * Reason Comments NEW PATIENT * Evaluate & Treat - Unlimited Visits (Within 10 days (routine)) - Authorized Specialty Diagnoses / Procedures Referred By Contac t Referred To Contact Endocrinology/Metabolism / Endocrinology Diagnoses Hyperparathyroidism, primary (HCC) Hypercalcemia Reza Angulo MD [address] [place] [address] Referral ID Status Reason Start Date Expiration Date Visits Requested Visits Authorized [id number] Authorized Specialty Services Required 01/14/2024 999 [id number] Encounter Details Date Type Department Care Team (Latest Contact Info) Description 01/16/2024 8:00 AM EDT Office Visit Endocrinology [address] [place] [address] Thao Salinas MD [address] [place] [address] Hyperparathyroidism (HCC)*; Hypercalcemia; Vitamin D deficiency; Hypocalciuria; Tachycardia; Type 2 diabetes mellitus with stage 3 chronic kidney disease and hypertension (HCC) Allergies Active Allergy Reactions Criticality Noted Date Comments Adhesive Tape 11/25/2008 sore sensitive skin Penicillins Medium 01/14/2024 Not effective on pt Povidone 07/08/2009 documented as of this encounter (statuses as of 01/31/2024) Medications Medication Sig Dispensed Refills Start Date End Date Status Blood Glucose Monitoring Suppl (ProspXUCH ULTRA SYSTEM) W/DEVICE KIT Use up to four times a day as directed 1 Kit 12/19/2016 Active Aspirin 81 MG TabletIndications:Ty pe 2 diabetes mellitus with hemoglobin A1c goal of less than 7.0% ([facility]) Take 1 Tab by mouth daily. 30 Tab 12/19/2016 Active Vitamin D 50 MCG (2000 UT) Oral Capsule Take 2,000 Units by mouth in the morning. Active OneTouch Ultra In Vitro Strip (Glucose Blood)Indications:Ty pe 2 diabetes mellitus with hemoglobin A1c goal of less than 7.5% ([facility]) USE UP TO FOUR TIMES DAILY DIRECTED 400 Strip 2 03/16/2023 Active OneTouch Delica Lancets 30GIndications:Type 2 diabetes mellitus with [...] diabetic peripheral angiopathy without gangrene, unspecified whether intermodal customer service insulin use (HCC) Take 1 Tablet by [...] as of this encounter (statuses as of 01/31/2024) Active Problems Problem Noted Date Diagnosed Date [...] without gangrene 12/19/2017 Elevated parathyroid hormone 12/21/2016 correction current use of aromatase inhibitor HTN, goal below 140/90 08/08/2015 Overview: Per HTN Protocol #27. DYSLIPIDEMIA, GOAL LDL BELOW 100 05/12/2009 Overview: Per Lipid Taxonomy. History of malignant melanoma of skin 03/15/2009 Overview: History MELANOMA low lateral R neck: pT1a 0.53mm/172.5 Status post joint replacement 03/08/2008 ADVANCE DIRECTIVE INFORMATION 05/08/2006 Overview: No, Advance Directive brochure given to patient at prior appointment. LOC PRIM FENUGABF-M-LET 12/11/2004 Generalized osteoarthritis documented as of this encounter (statuses as of 01/31/2024) Resolved Problems Problem Noted Date Diagnosed Date [...] as of this encounter (statuses as of 01/31/2024) Immunizations Name Administration Dates Next Due COVID-19 mRNA, LNP-s, No Pre serve, 2-Dose Series ([employer]) 05/16/2021,09/15/2020,08/25/2020 COVID-19, MRNA-LNP, 23-24, P F, 30 MCG/0.3 mL, 12 YRS AND ABOVE, IM (PFIZER-Comirnaty) 05/15/2023 Covid-19, Mrna, Lnp-s, Pf, B ivalent, [...] lent, No Preserve, IM 06/21/2016,06/17/2015 Seasonal Influenza, Trivalen t, (IIV3), with Preserv, (Fluzone) 06/17/2014,06/05/2013,05/30/2012,03/29,03/28/2010,03/28/2009,03/08/2008 ,04/09/2006,06/19/2002 TD - Tetanus/Diptheria (ADULT) 12/21/1992 TD, Preservative Free 05/08/2006 TDAP (age 10 and older)(Boostrix) 02/26/2022,11/2011 Zoster Vaccine Recombinant (Shingrix) 07/27/2019 ,03/05/2019 documented as of this encounter Social History Tobacco Use Types Packs/Day Years Used Date Smoking Tobacco: Never Smokeless Tobacco: Never Tobacco Cessation:Counseling Given: No Alcohol Use Standard Drinks/Week Comments Yes 0 [...] No 01/15/2024 Does the household have a [facility] source of income? (Household - for ages [...] on file documented as of this encounter Last Filed Vital Signs Vital Sign Reading Time Taken Comments Blood Pressure 145/78 01/16/2024 7:41 AM EDT Pulse 77 01/16/2024 7:41 AM EDT Temperature 37 C (98.6 F) 01/16/2024 7:41 AM EDT Respiratory Rate 18 01/16/2024 7:41 AM EDT Oxygen Saturation 98% 01/16/2024 7:41 AM EDT Inhaled Oxygen Concentration - - Weight 160.6 kg (354 lb) 01/16/2024 7:41 AM EDT Height - - Body Mass Index 60.76 01/14/2024 2:02 PM EDT documented in this encounter Progress Notes * Thao Salinas MD - 01/16/2024 8:00 AM EDT Referring provider: Reza Angulo MD Primary care provider: Ellis Altamirano III, MD Reason for referral/chief complaint: Initial visit to establish care for hyperparathyroidism and hypercalcemia. Date of service: 01/16/2024 History of present illness: This is a pleasant 73-year-old female who is seen in Endocrinology to establish care for hypercalcemia and hyperparathyroidism. Summary of lab work: Hypercalcemia with calcium ranging from 10.3-11.4 since 2014 Hyperparathyroidism with PTH ranging from 73-230 since 2016 CKD 3 with GFR ranging from 32-59 since 2014 Prior vitamin-D deficiency, noted to have resolved now Hypocalciuria in setting of chronic kidney disease and vitamin-D deficiency Lowish normal serum phosphorous She took hydrochlorothiazide from 1999-08/2021 when it was stopped due to hypercalcemia. Denies being on lithium. Does not take any calcium supplements including Tums. Not on vitamin A. Takes vitaminD3 2000 IU daily. Dietary calcium intake is not very high. No prior history of gastric bypass surgery. Reports progressive fatigue, lack of motivation, some memory decline and brain fog. These symptoms are getting worse for past 1 month or so. Denies nausea, vomiting, abdominal pain or chronic constipation. No history of pancreatitis or peptic ulcer disease Denies polyuria, polydipsia, hematuria. No history of kidney stones. Has chronic low back pain and left shoulder pain. Has been getting glucocorticoid injections for her left shoulder. No history of fragility fractures. Reports arthritis related aches and pains. She has history of trunk melanoma which was treated with surgery in 2008. Also had right breast cancer, treated with lumpectomy and radiation treatment in 2012. In remission now. Other comorbidities: 1. Well-controlled type 2 diabetes. Currently on metformin 500 mg daily, Actos 30 mg daily and started Jardiance 10 mg daily 2 days ago. No prior use of GLP 1 analogs. 2. Has history of hypertension and is currently on lisinopril and nifedipine. Lately, she has been experiencing more fatigue, exertional shortness of breath and lower extremity swelling. Today, she denies palpitations, chest pressure, chest pain, shortness of breath, lightheadedness, dizziness. Labs: Latest Reference Range & Units 12/19/17 10:07 12/18/18 11:46 07/27/19 12:01 07/30/19 10:39 07/28/20 11:05 03/10/21 12:05 08/15/21 11:37 10/03/21 10:37 02/26/22 11:28 08/31/22 08:57 03/06/23 10: 11:31 09/27/23 10:53 09/30/23 11:24 01/14/24 14:53 Estimated Glomerular Filtration Rate >=60 mL/min 51.0 (L) 59.6 (L) 43.4 (L) 37.1 (L) 43.4 (L) 48(L) 54 (L) 42 (L) 55 (L) 32 (L) Calcium 8.4 - 10.2 mg/dL 10.3 (H) 10.9 (H) 10.7 (H) 11.1 (H) 11.3 (H) 11.0 (H) 11.0 (H) 11.3 (H) 10.7 (H) 11.3 (H) 11.3 (H) 11.4 (H) Phosphorus 2.5 - 4.8 mg/dL 2.9 2.7 3.5 3.1 2.9 3.1 3.1 2.8 3.1 PTH 15 - 65 pg/mL 116 (H) 120 (H) 150 (H) 174 (H) 167 (H) 135 (H) 158 (H) 122 (H) 119 (H) 99 (H) 230 (H) 25-Hydroxy Vitamin D >19 ng/mL 8 (L) 7 (L) 27 30 33 31 HGB 12.0 - 15.3 g/dL 13.3 13.9 12.2 13.5 12.4 12.0 11.9 (L) HCT 36.0 - 45.2 % 38.0 41.9 37.8 Calcium, 24 Hour Urine 0.05 - 0.30 g/24 hours 0.028 (L) 0.06 Calcium, Urine mg/dL 3.9 Urine Volume mL 1,450 Imaging: DEXA scan 01/15/2024: Official report pending. Images reviewed T-score from L1-L4 noted to be +2.4 T-score at femoral neck was-0.7 and at total hip was -1.1 T-score at distal 1/3 radius was +0.9 FRAX score for major osteoporotic fracture was 7.2% and for hip fracture was 0.8% DEXA scan 03/2016: Using a [employer] Discovery C unit, P-A images of the left forearm were obtained using DXA. The bone mineral density and T-scores (standard young, normal, female population) are as follows: LOCATION GMS/HE1 S-BGLOU S-XEAWR Left forearm 0.811 +2.0 Parathyroid localization studies: 09/28/2019 Parathyroid sestamibi scan: IMPRESSION Diffuse asymmetric enlargement of the right thyroid lobe. No scintigraphic evidence for parathyroidadenoma. Past Medical History: Diagnosis Date Diabetic eye exam ([facility]) 11/11/2012 no retinopathy DM type 2, goal A1c below 7 Diabetes Type II, Controlled Generalized osteoarthritis History of lobular carcinoma of breast 06/05/2018 HTN, goal below 140/90 Malignant melanoma of trunk ([facility]) Right neck Mixed dyslipidemia Morbid obesity, BMI not known ([facility]) Undiagnosed cardiac murmurs PVC's Varicella without complication Past Surgical History: Procedure Laterality Date ARTHROPLASTY KNEE TIBIAL PLATEAU 09/30/06 biltateral total knee replacement BREAST NEEDLE LOCALIZATION, MR-GUIDED, W + W/O CONTRAST 06/23/12 Right needle localization lumpectomy,right sentinellymph node biopsy,layered closure of [address] [facility] 06/23/11 DELIVERY Delivery Only DELIVERY Delivery Only DELIVERY Delivery Only DENTAL SURGERY PROCEDURE NEC Dental Surgery Procedure DILATION AND CURETTAGE (D&C) D&C DILATION AND CURETTAGE (D&C) D&C DILATION AND CURETTAGE (D&C) D&C LIGATE/CUT OVIDUCT(S) Tubal Ligation MAMMOGRAM - BILATERAL Mammogram,Both Breast 03/05/01 birad 1 MAMMOGRAM - BILATERAL 04.17.02 benign findings, yearly mammos appropriate, birad code 2 MAMMOGRAM - BILATERAL 05/05/07 birad code 2 MAMMOGRAM DIAGNOSTIC BILATERAL 05/11/2010 birad code 2 MAMMOGRAM SCREENING BILATERAL 05/09/2009 birad code 2 MAMMOGRAM SCREENING-BILATERAL 04/19/03 birad code 2 MAMMOGRAM SCREENING-BILATERAL ..06 benign findings, yearly mammograms appropriate, birad code 2 MAMMOGRAM SCREENING-BILATERAL 05/06/08 birad 2 RMV MALG LSN TRK/ARM/LG <=.5C 12/15/08 EXCISION MALIGNANT TRUNK ARM LEG LESS THAN 0.5 performed [place] NIR[place] [facility], LARGE/COMPLICATED 12/15/08 ADJACENT TISSUE TRANSFER 30 PLUS SQ CM UNUSUAL performed by NIRAV KRISHNAN [place] [facility] [place]OTAL ABD HYSTERECTOMY W/WO REMOVAL OF TUBE(S) Family History Problem Relation Name Age of Onset Arthritis Mother osteoarthritis Diabetes Mother Diabetes Father Arthritis Father Eye Problems Father cataracts Heart Disorder Father arrhythmia Other (psoriasis) Father denies melanoma Diabetes Sister Diabetes Sister gestational Hypertension Sister Hypertension Sister No Past Hx Brother No Past Hx Brother No Past Hx Daughter No Past Hx Son No Past Hx Son Other (psoriasis) Sister Social History Socioeconomic History Marital status: Spouse name: Not on file Number of children: Not on file Years of education: Not on file Highest education level: Not on file Occupational History Occupation: clerical/bookkeeping Employer: [employer] [address] Tobacco Use Smoking status: Never Smokeless tobacco: Never Vaping Use Vaping status: Never Used Substance and Sexual Activity Alcohol use: Yes Comment: ocassional Drug use: No Sexual activity: Yes Partners: Male control/protection: Surgical Other Topics Concern Service No Blood Transfusions No Caffeine Concern No Occupational Exposure No Hobby Hazards No Sleep Concern No Stress Concern No Weight Concern Yes Special Diet No Back Care No Exercise No Bike Helmet Not Asked Seat Belt Yes Self-Exams Yes Social History Narrative Not on file Social Determinants of Health Financial Resource Strain: Low Risk (01/15/2024) Financial Resource Strain Do you have any trouble paying for your medications, or do you think you might in the future? (Adult - for ages 18 years and over): No Does your family have trouble paying for medicine? (Household - for ages 0-17 years): Not on file Food Insecurity: No Food Insecurity (01/15/2024) Food Insecurity Do you need food for this week? (Adult - for ages 18 years and over): No Are you able to get enough food for your family? (Household - for ages 0-17 years): Not on file Does your family need food this week? (Household - for ages 0-17 years): Not on file Do you always have enough food for your family? (Household - for ages 0-17 years): Not on file Transportation Needs: No Transportation Needs (01/15/2024) Transportation Needs Do you have trouble getting a ride to medical visits or work? (Adult - for ages 18 years and over):Not on file Does your family have a hard time getting a ride to doctors visits? (Household - for ages 0-17 years): Not on file Has lack of transportation kept you from medical appointments, meetings, work, or from getting things needed for daily living? Check all that apply. (Adult - for ages 18 years and over): No Do you (or your family) have trouble finding or paying for a ride (transportation)? (Household - for ages 0-17 years): Not on file Social Connections: Socially Integrated (01/15/2024) Social Connections How often do you feel lonely or isolated from those around you? (Adult - for ages 18 years and over): Never Housing Stability: Low Risk (01/15/2024) Housing Stability Do you currently live in a [place] [facility] or have no steady place to sleep at night? (Adult - for ages 18 years and over): No Do you think you are at risk of becoming homeless? (Adult - for ages 18 years and over): Not on file Does your family worry about paying for your home or becoming homeless? (Household - for ages 0-17 years): Not on file Are you homeless or worried that you might be in the future? (Adult - for ages 18 years and over): No Are you (or your family) homeless or worried that you might be in the future? (Household - for ages0-17 years): Not on file Current Outpatient Medications Medication Sig Dispense Refill Aspirin 81 MG Tablet Take 1 Tab by mouth daily. 30 Tab 0 Atorvastatin Calcium 40 MG Oral Tablet (Lipitor) Take 1 Tablet by mouth in the morning. 90 Tablet 1 Blood Glucose Monitoring Suppl ([employer] SYSTEM) W/DEVICE KIT Use up to four times a day as directed 1 Kit 0 Cinnamon 500 MG Oral Capsule Take 1 Capsule by mouth in the morning and 1 Capsule before bedtime. COVID-19 mRNA Vaccine 12 years and above Pfizer 30 MCG/0.3 ML IM SUSP Inject into a large muscle. (Patient not taking: Reported on 08/27/2023) 0.3 mL 0 Diclofenac Sodium 75 MG Oral Tablet Delayed Release (Voltaren) Take 1 Tablet by mouth in the morning. With food.. 90 Tablet 1 Empagliflozin 10 MG Oral Tablet (Jardiance) Take 1 Tablet by mouth in the morning. 90 Tablet 3 Lisinopril 40 MG Oral Tablet Take 1 Tablet by mouth in the morning. 90 Tablet 2 Magnesium 400 MG Oral Tablet Take by mouth. metFORMIN HCl ER 500 MG Oral Tablet Extended Release 24 Hour (Glucophage XR) Take 1 Tablet by mouthin the morning. 90 Tablet 1 NIFEdipine ER Osmotic Release 90 MG Oral Tablet Extended Release 24 Hour (Procardia XL) Take 1 Tablet by mouth in the morning. 90 Tablet 1 OneTouch Delica Lancets 30G USE TO CHECK GLUCOSE UP TO 4 TIMES DAILY DIRECTED 400 Each 2 OneTouch Ultra In Vitro Strip (Glucose Blood) USE UP TO FOUR TIMES DAILY DIRECTED 400 Strip 2 Pioglitazone HCl 30 MG Oral Tablet (Actos) Take 1 Tablet by mouth in the morning. 90 Tablet 2 Vitamin D 50 MCG (2000 UT) Oral Capsule Take 2,000 Units by mouth in the morning. No current facility-administered medications for this visit. Review of patient's allergies indicates: Allergen Reactions Penicillins Not effective on pt Adhesive Tape sore sensitive skin Povidone Review of systems: As per HPI. Others reviewed and noted to be negative. Physical examination: Vitals: 01/16/24 0741 Temp: 37 C (98.6 F) Pulse: 77 Resp: 18 SpO2: 98% BP: 145/78 Constitutional: Appears well and appropriate for her age. Generalized obesity noted. Eyes: No apparent Periorbital puffiness. Neck: No visible large goiter. Cardiovascular: Patient was noted to be tachycardic with irregular heartbeat. On her Apple watch, heart rate was 144. She was noted to have bilateral lower extremity swelling. Respiratory: Patient is able to speak in complete sentences. No wheeze rhonchi or crackles Musculoskeletal: Intact range of motion at upper extremities Neuro: AAO X3. Recent and remote memory intact. Psych: Patient makes goodeye contact. Speech noted to be normal. Records: Labs reviewed as above in HPI Other labs: Latest Reference Range & Units 08/31/22 09:07 Albumin / Creatinine Ratio, Urine <30 mg/g Creat 18 Latest Reference Range & Units 03/06/23 10:41 08/27/23 11:31 01/14/24 14:53 Hemoglobin A1C 4.0 - 5.6 % 6.4 (H) 6.5 (H) 6.7 (H) Imaging reviewed as above in HPI Assessment & Plan Hyperparathyroidism (HCC) (Primary) - US HEAD AND NECK; Future; Expected date: 01/16/2024 - NM PARATHYROID SCAN (SPECT & CT); Future; Expected date: 01/16/2024 Hypercalcemia - US HEAD AND NECK; Future; Expected date: 01/16/2024 - NM PARATHYROID SCAN (SPECT & CT); Future; Expected date: 01/16/2024 Vitamin D deficiency Hypocalciuria Comments and plan: Patient is seen in Endocrinology to establish care for hypercalcemia and hyperparathyroidism. Patient has PTH mediated hypercalcemia (elevated corrected serum calcium + elevated PTH) suggestiveof primary hyperparathyroidism. No HCTZ/lithium on board. Hypercalcemia symptoms: Neuropsychiatric symptoms Other etiologies of hypercalcemia including HHM (humoral hypercalcemia of malignancy), hypercalcemia from lymphoproliferative disorders, multiple myeloma, vitamin-D intoxication, milk alkali syndromeare unlikely due to fact that patient has PTH mediated hypercalcemia rather than non PTH mediated hy percalcemia. Though, 24 hour urine calcium is low, my suspicion for FHH is not high given degree of hypercalcemia and degree of hyperparathyroidism. Prior normal calcium also makes FHH unlikely. Low 24 hour urinecalcium likely is due to CKD and low dietary calcium intake. She has history of melanoma and breast cancer in past. Doubt hypercalcemia is related to dose as I expect PTH to be low rather than high with humoral hypercalcemia of malignancy. Plan: Etiology, pathophysiology, diagnostic and therapeutic options for management of primary hyperparathyroidism has been discussed with patient. Given corrected serum calcium more than 1 mg/dL above upper limit of normal and given CKD with GFR less than 60, she is a candidate for surgical management of primary hyperparathyroidism. She is agreeable to pursue surgery. Criteria: 1. Age less than 50: No 2. GFR less than 60: Yes 3. History of nephrolithiasis: No 4. 24 hour urine calcium more than 400 mg per day: No 5. History of fragility fractures: History spinal compression deformities on spinal imaging: No 6. Evidence of osteoporosis on DEXA scan: No 7. Corrected serum calcium more than 1 mg/dL above upper limit of normal: Yes She will be referred to ENT for surgical consultation after results on parathyroid localization studies become available. Meanwhile, I have advised patient to keep herself well hydrated. She has been advised to continue taking vitamin-D 2000 IU daily. She has been advised to take calcium 800 mg from dietary sources only. Advised not to take any nypl-qvs-qefgoqc calcium supplements. Follow-up: 6 months or sooner if needed Tachycardia She reported exertional dyspnea, progressive fatigue and progressive lower extremity swelling. On exam, she was tachycardic (irregular rhythm). Blood pressure was stable. On her Apple watch, heart rate was 144. She denied chest pain, palpitations, lightheadedness or dizziness. I advised her to go to ER in [place]. She stated that she will consider it on her way back home ([facility]) I have updated PCP and referring provider for follow-up. Type 2 diabetes mellitus with stage 3 chronic kidney disease and hypertension (HCC) Patient has history of type 2 diabetes mellitus. Currently on metformin, Actos and recently startedJardiance. Given that most recent GFR is 33 and given lower extremity swelling, I will suggest to stop metformin and Actos. Okay to continue Jardiance given diabetic nephropathy, hypertension and lower extremity swelling. Good candidate for GLP 1 analogs if approved and else not contraindicated. Diabetes to be managed by primary care provider. Follow Up: Return in about 6 months (around 07/18/2024) for Clinic Visit. | For: Clinic Visit | Check-out note: Six-month follow-up for primary hyperparathyroidism I spent a total of Greater than 55 mins (exact time 70 mins) on the date of service in preparation,delivery, and documentation of the care provided to Chastity Su excluding any time spent in the performance of separately billed services or time spent by another provider/QHP. Thao Salinas MD Endocrinology Physician [address], [place] [address] This chart was completed in part utilizing [employer] Speech Voice Recognition Software. Grammatical errors, random word insertions, pronoun errors, and incomplete sentences are an occasional consequence of this system due to software limitations, ambient noise, and hardware issues. Any formal questions or concerns about the content, text, or information contained within the body of this dictation should be directly addressed to the provider for clarification. CC:Ellis Altamirano III, MD CC:Reza Angulo MD * Alisa Ball CMA - 01/16/2024 7:36 AM EDT Patient was instructed to not get up on the exam table/exam chair until directed and assisted by their provider; patient is to remain seated in the chair/ wheelchair/ exam table/ exam chair for fall prevention and safety reasons. Patient is aware to have assistance to step down off exam table/exam chair with personnel. Patient voiced full comprehension of instructions. documented in this encounter Miscellaneous Notes * Addendum Note - Thao Salinas MD - 01/31/2024 1:40 PM EDTAddended by: THAO SALINAS on: 01/31/2024 01:40 PM Modules accepted: Orders documented in this encounter Plan of Treatment Upcoming Encounters Date Type Department Care Team (Late st Contact Info) Description 02/20/2024 9:00 AM EDT Office Visit Family Practice [facility] [address] [place] [id number] Joelle Meredith PA-C [address] [facility] [place] [id number] 02/25/2024 2:15 PM EDT Office Visit [facility] [address] [place] [address] Tyrell Castro DO [address] [address] [place] [phone] 02/27/2024 11:00 AM EDT Office Visit Family Practice [facility] [place] [place] [address] [place] [address] Joelle Meredith PA-C [address] [place] [address] 07/22/2024 3:00 PM EST Office Visit Endocrinology [address] [place] [phone] Thao Salinas MD [address] [facility] [place] [address] Scheduled Referrals Name Type Priority Associated Diagnoses Order Schedule ADULT/PEDS OTOLARYNGOLOGY REFERRAL OP Referral Within 10 days (routine) Hyperparathyroidism (HCC) Hypercalcemia Ordered: 01/31/2024 Health Maintenance Due Date Last Done Comments [...] Additional history exists CKD PHOS USE SMARTSET 42619 09/26/202409/02, 08/27/2023, 03/06/2023, Additional history exists Cologuard 10/12/2024 10/12/2021, 05/0 09/2021, 10/04/2021 Colorectal Cancer Screening 10/12/2024 Mammogram 10/15/2024 10/16/2023, 04/2 09/2023, 09/20/2022, Additional history exists Diabetic Eye Exam 01/12/2025 01/13/2024, , 01/09/2022, Additional history exists CKD HGB USE SMARTSET 81046 01/13/202501/13, 08/27/2023, 08/31/2022, Additional history exists Lipid [...] Not on filedocumented as of this encounter Results * NM PARATHYROID SCAN (SPECT & CT) (01/28/2024 3:45 PM EDT) Anatomical Region Laterality Modality Neck, Thyroid Nuclear Medicine 01/28/2024 5:06 PM EDT Impressions 01/30/2024 8:20 AM EDT IMPRESSION Persistent intense focal nodular radiotracer uptake in the right thyroid lobe, suspicious for parathyroid adenoma, with possible nodular correlate on noncontrast CT neck. Recommend 4D CT neck with contrast for better anatomic correlation. I have personally reviewed this examination and agree with the resident/fellow physician's interpretation. Narrative 01/30/2024 8:20 AM EDT EXAM NM PARATHYROID SCAN (PLANAR AND SPECT-CT) - 01/28/2024 3:45 pm HISTORY Primary hyperparathyroidism. Evaluate for parathyroid adenoma COMPARISON Ultrasound neck 01/20/2024 TECHNIQUE Following the intravenous administration of 25.8 mCi of Tc-99m sestamibi, planar and SPECT imaging was performed immediately post injection. Delayed planar and SPECT imaging was performed after three hours. Low-dose CT of the neck was performed and fused with the SPECT images on a separate workstation. FINDINGS PLANAR IMAGING: Immediate symmetric increased radiotracer uptake in the right thyroid lobe with right lower lobe nodular retention on the delayed images.Normal salivary gland activity on the immediate images with significant washout of radiotracer from the thyroid on the delayed images. SPECT/FUSION: Immediate asymmetric increased right thyroid lobe sestamibi uptake. Focal nodular increased activity in the right thyroid gland. The unenhanced CT is somewhat limited; however, there is suggestion of a 19.6 x 17.6 x 24.4 mm nodular correlate. ADDITIONAL CT FINDINGS: Ethmoid sinus mucoperiosteal disease. Bilateral small pleural effusions, larger on right. Bilateral sub 5 mm nodules, likely inflammatory foci. Mild atherosclerosis of the aorta and coronary arteries. Benign appearing right breast calcific foci, likely oil cysts. Advanced left shoulder degenerative arthropathy. Milder changes in the right shoulder joint. Degenerative spurring in the included cervical and thoracic spine. Procedure Note Richelle Payne, DO - 01/30/2024 EXAM NM PARATHYROID SCAN (PLANAR AND SPECT-CT) - 01/28/2024 3:45 pm HISTORY Primary hyperparathyroidism. Evaluate for parathyroid adenoma COMPARISON Ultrasound neck 01/20/2024 TECHNIQUE Following the intravenous administration of 25.8 mCi of Tc-99m sestamibi,planar and SPECT imaging was performed immediately post injection.Delayed planar and SPECT imaging was performed after three hours.Low-dose CT of the neck was performed and fused with the SPECT images on [employer] workstation. FINDINGS PLANAR IMAGING: Immediate symmetric increased radiotracer uptake in the right thyroid lobewith right lower lobe nodular retention on the delayed images.Normalsalivary gland activity on the immediate images with significant washoutof radiotracer from the thyroid on the delayed images. SPECT/FUSION: Immediate asymmetric increased right thyroid lobe sestamibi uptake. Focalnodular increased activity in the right thyroid gland. The unenhanced CTis somewhat limited; however, there is suggestion of a 19.6 x 17.6 x 24.4mm nodular correlate. ADDITIONAL CT FINDINGS: Ethmoid sinus mucoperiosteal disease. Bilateral small pleural effusions,larger on right. Bilateral sub 5 mm nodules, likely inflammatory foci.Mild atherosclerosis of the aorta and coronary arteries. Benign appearingright breast calcific foci, likely oil cysts. Advanced left shoulderdegenerative arthropathy. Milder changes in the right shoulder joint.Degenerative spurring in the included cervical and thoracic spine. IMPRESSION IMPRESSION Persistent intense focal nodular radiotracer uptake in the right thyroidlobe, suspicious for parathyroid adenoma, with possible nodular correlateon noncontrast CT neck. Recommend 4D CT neck with contrast for betteranatomic correlation. I have personally reviewed this examination and agree with the resident/fellow physician's interpretation. Thao Salinas MD RAD NUCLEAR MED * US HEAD AND NECK (01/20/2024 1:47 PM EDT) Anatomical Region Laterality Modality Neck, Head Ultrasound 01/20/2024 2:08 PM EDT Impressions 01/20/2024 2:46 PM EDT IMPRESSION 1. TI-RADS 3 nodule in the mid right thyroid lobe measures 3.5 cm. FNA recommended. 2. Hypoechoic nodule inferior to the left lobe measures 1.3 x 1.0 x 0.8 cm. Consider correlation with parathyroid scintigraphy. I have personally reviewed this examination and agree with the resident/fellow physician's interpretation. Narrative 01/20/2024 2:46 PM EDT EXAM US HEAD AND NECK - 01/20/2024 1:47 pm HISTORY Primary hyperparathyroidism. Evaluate for parathyroid adenoma. COMPARISON None TECHNIQUE Real-time ultrasonography of the thyroid gland was performed. FINDINGS RIGHT THYROID: 4.8 x 2.2 x 2.4 cm Heterogeneous parenchyma. Isoechoic predominantly solid nodule in the mid gland, measuring 3.5 x 2.3 x 1.6 cm cm. TR3. LEFT THYROID: 4.1 x 1.3 x 1.2 cm Heterogeneous parenchyma. Hypoechoic nodule posterior to the left lobe measures 1.3 x 1.0 x 0.8 cm without internal vascular flow. ISTHMUS: 0.4 cm No suspicious nodules. Procedure Note Betty Washington MD - 01/20/2024 EXAM US HEAD AND NECK - 01/20/2024 1:47 pm HISTORY Primary hyperparathyroidism. Evaluate for parathyroid adenoma. COMPARISON None TECHNIQUE Real-time ultrasonography of the thyroid gland was performed. FINDINGS RIGHT THYROID: 4.8 x 2.2 x 2.4 cm Heterogeneous parenchyma. Isoechoic predominantly solid nodule in the mid gland, measuring 3.5 x 2.3x 1.6 cm cm. TR3. LEFT THYROID: 4.1 x 1.3 x 1.2 cm Heterogeneous parenchyma. Hypoechoic nodule posterior to the left lobe measures 1.3 x 1.0 x 0.8 cmwithout internal vascular flow. ISTHMUS: 0.4 cm No suspicious nodules. IMPRESSION IMPRESSION 1. TI-RADS 3 nodule in the mid right thyroid lobe measures 3.5 cm. FNArecommended. 2. Hypoechoic nodule inferior to the left lobe measures 1.3 x 1.0 x 0.8cm. Consider correlation with parathyroid scintigraphy. I have personally reviewed this examination and agree with the resident/fellow physician's interpretation. 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
--- OUTSIDE RECORDS SUMMARY | 2024-02-05 03:01 | External Medical Summary | Summary of Care ---
Author Name Unknown Organization [facility] Address [address] [place] [address] Phone [phone] Care Team Providers Care Weight Yardage Checker Name Role Phone Adarsh VALENTE MD, Ellis Davis Primary Care Provider [phone] Reason for Visit * Precert (Within 10 days (routine)) - Authorized Specialty Diagnoses / Procedures Referred By Contac t Referred To Contact Radiology Diagnoses Hyperparathyroidism (HCC) Hypercalcemia Procedures NM PARATHYROID SCAN (SPECT & CT) Julian Freitas MD [address] [place] [address] Referral ID Status Reason Start Date Expiration Date V isits Requested Visits Authorized [id number] Authorized 01/16/2024 [id number] Encounter Details Date Type Department Care Team (Latest Contact Info) Description 01/28/2024 2:37 PM EDT - 01/28/2024 11:59 PM EDT Hospital Encounter Radiology, [place] [address] [place] [address] Arrived Discharge Disposition: Home - Self Care Allergies Active Allergy Reactions Criticality Noted Date Comments Adhesive Tape 11/25/2008 sore sensitive skin Penicillins Medium 01/14/2024 Not effective on pt Povidone 07/08/2009 documented as of this encounter (statuses as of 01/29/2024) Medications Medication Sig Dispensed Refills Start Date End Date Status Blood Glucose Monitoring Suppl (99Bill ULTRA SYSTEM) W/DEVICE KIT Use up to four times a day as directed 1 Kit 12/19/2016 Active Aspirin 81 MG TabletIndications:Ty pe 2 diabetes mellitus with hemoglobin A1c goal of less than 7.0% ([facility]) Take 1 Tab by mouth daily. 30 Tab 12/19/2016 Active Vitamin D 50 MCG (2000 UT) Oral Capsule Take 2,000 Units by mouth in the morning. Active OneTouch Ultra In Vitro Strip (Glucose Blood)Indications:Ty pe 2 diabetes mellitus with hemoglobin A1c goal of less than 7.5% ([facility]) USE UP TO FOUR TIMES DAILY DIRECTED 400 Strip 2 03/16/2023 Active OneTouch Delica Lancets 30GIndications:Type 2 diabetes mellitus with stage 3 chronic kidney disease and hypertension ([facility]) USE TO CHECK GLUCOSE UP TO 4 [...] diabetic peripheral angiopathy without gangrene, unspecified whether [facility] insulin use ([facility]) Take 1 Tablet by mouth in the [...] without gangrene 12/19/2017 Elevated parathyroid hormone 12/21/2016 alf current use of aromatase inhibitor HTN, goal below 140/90 08/08/2015 Overview: Per HTN Protocol #27. DYSLIPIDEMIA, GOAL LDL BELOW 100 05/12/2009 Overview: Per Lipid Taxonomy. History of malignant melanoma of skin 03/15/2009 Overview: History MELANOMA low lateral R neck: pT1a 0.53mm/172.5 Status post joint replacement 03/08/2008 ADVANCE DIRECTIVE INFORMATION 05/08/2006 Overview: No, Advance Directive brochure given to patient at prior appointment. LOC PRIM [id number] 12/11/2004 Generalized osteoarthritis documented as of this encounter (statuses as of 01/29/2024) Resolved Problems Problem Noted Date Diagnosed Date Resolved Date Lobular carcinoma of right breast 07/27/2020 03/08/2021 Type 2 diabetes mellitus wit h stage 3 chronic kidney disease and hypertension 12/19/2017 10/14/19 Overview: Per CKD protocol Prediabetes 07/16/2017 12/19/2017 [...] mRNA, LNP-s, No Pre serve, 2-Dose Series ([employer]) 05/16/2021,09/15/2020,08/25/2020 COVID-19, MRNA-LNP, 23-24, P F, 30 [...] 9:00 AM EDT Office Visit Family Practice [place] [address] [place] [address] Joelle Meredith PA-C [address] [place] [address] 02/25/2024 2:15 PM EDT Office Visit Interventional Pain Center, [facility] [address] [place] [address] Tyrell Castro [place], [address] [place] [phone] 02/27/2024 11:00 AM EDT Office Visit [facility] [address] [facility] [place] [address] Joelle Meredith PA-C [address] [facility] [place] [address] 07/22/2024 3:00 PM EST Office Visit Endocrinology [address] [place] [phone] Julian Freitas MD [address] [facility] [place] [address] Pending Results Name Type Priority Associated Diagnoses [...] Additional history exists CKD PHOS USE SMARTSET 27135 09/26/2024/2 11/2023, 08/27/2023, 03/06/2023, Additional history exists Cologuard 10/12/2024 10/12/2021, 05/0 09/2021, 10/04/2021 Colorectal Cancer Screening 10/12/2024 Mammogram 10/15/2024 10/16/2023, 2 09/2023, 09/20/2022, Additional history exists Diabetic Eye Exam 01/12/2025 01/13/2024, , 01/09/2022, Additional history exists CKD HGB USE SMARTSET 86887 01/13/202501/13, 08/27/2023, 08/31/2022, Additional history exists Lipid [...] sm (HCC) Hypercalcemia Procedure Note - Richelle Payne, DO / Elisha Fleming MD - 01/28/2024 [...] and fused with the SPECT images on [employer] workstation. FINDINGS PLANAR IMAGING: Immediate focal nodular [...] contrast forfurther evaluation. documented in this encounter Care Teams Weight Yardage Checker Relationship Specialty Start Date End Date Ellis Altamirano III, MD [address] [facility] [place] [address] PCP - General Family Medicine 07/23/18 documented as of this encounter
--- OUTSIDE RECORDS SUMMARY | 2024-02-05 03:01 | External Medical Summary | Summary of Care ---
Author Name Unknown Organization [facility] Address [address] [place] [address] Phone [phone] Care Team Providers Care Communication Lecturer Name Role Phone Adarsh VALENTE MD, Ellis Davis Primary Care Provider Reason for Visit * Reason Onset Date Comments Advice 01/16/2024 Patient requesti ng a call back from September. Encounter Details Date Type Department Care Team (Late st Contact Info) Description 01/16/2024 Telephone Family Practice [facility] [place] [address] [facility] [place] [address] Ellis Altamirano III, MD [address] [facility] [place] [address] Advice (Patient requesting a call back fro... Allergies Active Allergy Reactions Criticality Noted Date Comments Adhesive Tape 11/25/2008 sore sensitive skin Penicillins Medium 01/14/2024 Not effective on pt Povidone 07/08/2009 documented as of this encounter (statuses as of 01/23/2024) Medications Medication Sig Dispensed Refills Start Date End Date Status Blood Glucose Monitoring Suppl (ONETOUCH ULTRA SYSTEM) W/DEVICE KIT Use up to four times a day as directed 1 Kit 12/19/2016 Active Aspirin 81 MG TabletIndications:Ty pe 2 diabetes mellitus with hemoglobin A1c goal of less than 7.0% ([facility]) Take 1 Tab by mouth daily. 30 [...] diabetic peripheral angiopathy without gangrene, unspecified whether intermediate project manager insulin use (HCC) Take 1 Tablet by [...] as of this encounter (statuses as of 01/23/2024) Active Problems Problem Noted Date Diagnosed Date [...] without gangrene 12/19/2017 Elevated parathyroid hormone 12/21/2016 senior living current use of aromatase inhibitor HTN, goal below 140/90 08/08/2015 Overview: Per HTN Protocol #27. DYSLIPIDEMIA, GOAL LDL BELOW 100 05/12/2009 Overview: Per Lipid Taxonomy. History of malignant melanoma of skin 03/15/2009 Overview: History MELANOMA low lateral R neck: pT1a 0.53mm/172.5 Status post joint replacement 03/08/2008 ADVANCE DIRECTIVE INFORMATION 05/08/2006 Overview: No, Advance Directive brochure given to patient at prior appointment. LOC PRIM [id number] 12/11/2004 Generalized osteoarthritis documented as of this encounter (statuses as of 01/23/2024) Resolved Problems Problem Noted Date Diagnosed Date [...] as of this encounter (statuses as of 01/23/2024) Immunizations Name Administration Dates Next Due COVID-19 mRNA, LNP-s, No Pre serve, 2-Dose Series ([employer]IX) 05/16/2021,09/15/2020,08/25/2020 COVID-19, MRNA-LNP, 23-24, P F, 30 MCG/0.3 mL, 12 YRS AND ABOVE, IM ([employer]) 05/15/2023 Covid-19, Mrna, Lnp-s, Pf, B [...] No 01/15/2024 Does the household have a [facility] source of income? (Household - for ages [...] on file documented as of this encounter Miscellaneous Notes * Telephone Encounter - Jane Deng OSA - 01/23/2024 2:16 PM EDT Appointment scheduled on 02/20/24 at 09:00 am with September. * Telephone Encounter - Joelle Meredith PA-C - 01/16/2024 8:58 PM EDT Please call patient and have her come in for an appointment * Telephone Encounter - Nalini Hodges OSA - 01/16/2024 11:07 AM EDT Patient requesting a call back from September Masoud. Patient was seen at Endo today and was advised that heart rate was elevated, patient was advised toseek an EKG order from primary provider.resting heart rate was 144. Please reach out to patient to advise. She isn't having chest pains or discomfort, no headache.Please reach out to patient to discuss. documented in this encounter Plan of Treatment Upcoming Encounters Date Type Department Care Team (Late st Contact Info) Description 01/28/2024 12:00 PM EDT Appointment Radiology, [address] [address] 01/28/2024 3:00 PM EDT Appointment Radiology, [address] [address] 02/20/2024 9:00 AM EDT Office Visit [facility] [address] [place] [address] Joelle Meredith PA-C [address] [place] [address] 02/25/2024 2:15 PM EDT Office Visit Interventional Pain Center, [facility] [address] [facility] [place] [address] Tyrell Castro DO [address] [facility] [place] [address] 02/27/2024 11:00 AM EDT Office Visit [facility] [address] [place] [address] Joelle Meredith PA-C [address] [place] [address] 07/22/2024 3:00 PM EST Office Visit Endocrinology [address] [place] [phone] Julian Freitas MD [address] [place] [address] Health Maintenance Due Date Last Done Comments [...] Additional history exists CKD PHOS USE SMARTSET 65365 09/26/202409/02, 08/27/2023, 03/06/2023, Additional history exists Cologuard 10/12/2024 10/12/2021, 05/0 09/2021, 10/04/2021 Colorectal Cancer Screening 10/12/2024 Mammogram 10/15/2024 10/16/2023, 09/02, 09/20/2022, Additional history exists Diabetic Eye Exam 01/12/2025 01/13/2024, , 01/09/2022, Additional history exists CKD HGB USE SMARTSET 63166 01/13/202501/13, 08/27/2023, 08/31/2022, Additional history exists Lipid [...] filedocumented as of this encounter Care Teams Communication Lecturer Relationship Specialty Start Date End Date Ellis Altamirano III, MD [address] [place] [place] [address] PCP - General Family Medicine 07/23/18 documented as of this encounter
--- OUTSIDE RECORDS SUMMARY | 2024-02-05 03:02 | External Medical Summary | Summary of Care ---
Author Name Unknown Organization [facility] Address [address] [place] [address] Phone [phone] Care Team Providers Care Splitting Machine Feeder Name Role Phone Adarsh VALENTE MD, Ellis Davis Primary Care Provider [phone] Reason for Referral * Precert (Within 10 days (routine)) - Authorized Specialty Diagnoses / Procedures Referred By Contac t Referred To Contact Radiology Diagnoses Hyperparathyroidism (HCC) Hypercalcemia Procedures NM PARATHYROID SCAN (SPECT & CT) Julian Freitas MD [address] [place] [address] Referral ID Status Reason Start Date Expiration Date V isits Requested Visits Authorized [id number] Authorized 01/16/2024 999 999 Reason for Visit * Reason Comments NEW PATIENT * Evaluate & Treat - Unlimited Visits (Within 10 days (routine)) - Authorized Specialty Diagnoses / Procedures Referred By Contac t Referred To Contact Endocrinology/Metabolism / Endocrinology Diagnoses Hyperparathyroidism, primary (HCC) Hypercalcemia Reza Knott MD [address] [place] [address] Referral ID Status Reason Start Date Expiration Date Visits Requested Visits Authorized [id number] Authorized Specialty Services Required 01/14/2024 999 999 Encounter Details Date Type Department Care Team (Latest Contact Info) Description 01/16/2024 8:00 AM EDT Office Visit Endocrinology [address] [place] 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 30 Tab 12/19/2016 Active Vitamin D 50 MCG (2000 UT) Oral Capsule Take 2,000 Units by mouth in the morning. Active SuccessTSMuch Ultra In Vitro Strip (Glucose Blood)Indications:Ty pe 2 diabetes mellitus with hemoglobin A1c goal of less than 7.5% (HCC) USE UP TO FOUR TIMES DAILY DIRECTED 400 Strip 2 03/16/2023 Active SuccessTSMuch Delica Lancets 30GIndications:Type 2 diabetes mellitus with [...] diabetic peripheral angiopathy without gangrene, unspecified whether long-term insulin use (HCC) Take 1 Tablet by [...] as of this encounter (statuses as of 01/16/2024) Active Problems Problem Noted Date Diagnosed Date [...] to patient at prior appointment. LOC PRIM [id number] 12/11/2004 Generalized osteoarthritis documented as of this encounter (statuses as of 01/16/2024) Resolved Problems Problem Noted Date Diagnosed Date [...] as of this encounter (statuses as of 01/16/2024) Immunizations Name Administration Dates Next Due COVID-19 mRNA, LNP-s, No Pre serve, 2-Dose Series (Lifestreams) 05/16/2021,09/15/2020,08/25/2020 COVID-19, MRNA-LNP, 23-24, P F, 30 MCG/0.3 mL, 12 YRS AND ABOVE, IM ([facility]) 05/15/2023 Covid-19, Mrna, Lnp-s, Pf, B ivalent, 30 Mcg, IM, 12 yrs and above (Lifestreams) 03/08/2022 Pneumococcal Conjugate Vacc, 13 Valent (Prevnar) [...] documented in this encounter Progress Notes * Julian Freitas MD - 01/16/2024 8:00 AM EDT Referring provider: Reza Knott MD Primary care provider: Ellis Altamirano III, [...] Hyperparathyroidism with PTH ranging from 73-230 since 2017 CKD 3 with GFR ranging from 32-59 since 2015 Prior vitamin-D deficiency, noted to have resolved [...] was 0.8% DEXA scan 03/2016: Using a [employer] Discovery C unit, P-A images of the left forearm were obtained using DXA. The bone mineral density and T-scores (standard young, normal, female population) are as follows: LOCATION GMS/CG3 Q-ZQEUT F-ZMYYS Left forearm 0.811 +2.0 Parathyroid localization studies: 09/28/2019 Parathyroid sestamibi scan: IMPRESSION Diffuse asymmetric enlargement of the right thyroid lobe. No scintigraphic evidence for parathyroidadenoma. Past Medical History: Diagnosis Date Diabetic eye exam (HCC) 11/11/2012 no retinopathy DM type 2, goal A1c below 7 Diabetes Type II, Controlled Generalized osteoarthritis History of lobular carcinoma of breast 06/05/2018 HTN, goal below 140/90 Malignant melanoma of trunk (HCC) Right neck Mixed dyslipidemia Morbid obesity, BMI not known (HCC) Undiagnosed cardiac murmurs PVC's Varicella without complication Past Surgical History: Procedure Laterality Date ARTHROPLASTY KNEE TIBIAL PLATEAU 09/30/06 biltateral total knee replacement BREAST NEEDLE LOCALIZATION, MR-GUIDED, W + W/O CONTRAST 06/23/12 Right needle localization lumpectomy,right sentinellymph node biopsy,layered closure of [address] [place] 06/23/11 DELIVERY Delivery Only DELIVERY Delivery Only DELIVERY Delivery Only DENTAL SURGERY PROCEDURE NEC Dental Surgery Procedure DILATION AND CURETTAGE (D&C) D&C DILATION AND CURETTAGE (D&C) D&C DILATION AND CURETTAGE (D&C) D&C LIGATE/CUT OVIDUCT(S) Tubal Ligation MAMMOGRAM - BILATERAL Mammogram,Both Breast 03/05/01 birad 1 MAMMOGRAM - BILATERAL 11.15.02 benign findings, yearly mammos appropriate, birad code 2 MAMMOGRAM - BILATERAL 05/05/07 birad code 2 MAMMOGRAM DIAGNOSTIC BILATERAL 05/11/2010 birad code 2 MAMMOGRAM SCREENING BILATERAL 05/09/2009 birad code 2 MAMMOGRAM SCREENING-BILATERAL 04/19/03 birad code 2 MAMMOGRAM SCREENING-BILATERAL 11.29.06 benign findings, yearly mammograms appropriate, birad code 2 MAMMOGRAM SCREENING-BILATERAL 05/06/08 birad 2 RMV MALG LSN TRK/ARM/LG <=.5C 12/15/08 EXCISION MALIGNANT TRUNK ARM LEG LESS THAN 0.5 performed by NIRAV KRISHNAN at [place] [facility] T[place]UE [place]SF[place], LARGE/COMPLICATED 12/15/08 ADJACENT TISSUE TRANSFER 30 PLUS SQ CM UNUSUAL performed by NIRAV KRISHNAN at [place] [facility] TOTAL ABD HYSTERECTOMY W/WO REMOVAL OF TUBE(S) [...] on file Occupational History Occupation: clerical/bookkeeping Employer: [employer] 248 Tobacco Use Smoking status: Never Smokeless tobacco: [...] Stability Do you currently live in a half-way or have no steady place to sleep [...] 90 Tablet 1 Blood Glucose Monitoring Suppl (Futurefleet ULTRA SYSTEM) W/DEVICE KIT Use up to four times a day as directed 1 Kit 0 Cinnamon 500 MG Oral Capsule Take 1 Capsule by mouth in the morning and 1 Capsule before bedtime. COVID-19 mRNA Vaccine 12 years and above Lifestreams 30 MCG/0.3 ML IM SUSP Inject into [...] mouth in the morning. 90 Tablet 1 [employer] Delica Lancets 30G USE TO CHECK GLUCOSE UP TO 4 TIMES DAILY DIRECTED 400 Each 2 SuccessTSMuch Ultra In Vitro Strip (Glucose Blood) USE [...] also makes FHH unlikely. Low 24 hour urine calcium likely is due to CKD and low [...] sources only. Advised not to take any glyg-lhh-ymtkhpj calcium supplements. Follow-up: 6 months or sooner if needed Tachycardia She reported exertional dyspnea, progressive fatigue and progressive lower extremity swelling. On exam, she was tachycardic (irregular rhythm). Blood pressure was stable. On her Apple watch, heart rate was 144. She denied chest pain, palpitations, lightheadedness or dizziness. I advised her to go to ER in [place]. She stated that she will consider it on her way back home ([facility]) I have updated PCP and referring provider [...] services or time spent by another provider/QHP. Julian Freitas [place] [address] This chart was completed in part utilizing EasyRun Speech Voice Recognition Software. Grammatical errors, random word insertions, pronoun errors, and incomplete sentences are an occasional consequence of this system due to software limitations, ambient noise, and hardware issues. Any formal questions or concerns about the content, text, or information contained within the body of this dictation should be directly addressed to the provider for clarification. CC:Ellis Altamirano III, MD CC:Reza Knott MD * Alisa Ball CMA - 01/16/2024 [...] comprehension of instructions. documented in this encounter Plan of Treatment Upcoming Encounters Date Type Department Care Team (Late st Contact Info) Description 02/25/2024 2:15 PM EDT Office Visit Interventional Pain Center, [facility] [address] [place] [place] [address] Tyrell Castro DO [address] [place] [address] 02/27/2024 11:00 AM EDT Office Visit Family Practice [facility] [place] [address] [facility] [place] [address] Joelle Meredith PA-C [address] [facility] [place] [address] 07/22/2024 3:00 PM EST Office Visit Endocrinology [address] [place] [address] Julian Freitas MD [address] [place] [facility] [place] [address] Scheduled Orders Name Type Priority Associated Diagnoses Orde r Schedule US HEAD AND NECK Medical Imaging Routine Hyperparathyroidism (HCC) Hypercalcemia Expected: 01/16/2024, Expires: 02/15/2025 NM PARATHYROID SCAN (SPECT & CT) Medical Imaging Routine Hyperparathyroidism (HCC) Hypercalcemia Expected: 01/16/2024 (Approximate), Expires: 02/15/2025 Health Maintenance Due Date Last Done Comments [...] Additional history exists CKD PHOS USE SMARTSET 12735 09/26/202409/02, 08/27/2023, 03/06/2023, Additional history exists Cologuard 10/12/2024 10/12/2021, 05/0 09/2021, 10/04/2021 Colorectal Cancer Screening 10/12/2024 Mammogram 10/15/2024 10/16/2023, 09/02, 09/20/2022, Additional history exists Diabetic Eye Exam 01/12/2025 01/13/2024, , 01/09/2022, Additional history exists CKD HGB USE SMARTSET 23552 01/13/202501/13, 08/27/2023, 08/31/2022, Additional history exists Lipid [...] Not on filedocumented as of this encounter Visit Diagnoses Diagnosis Hyperparathyroidism (HCC)- Primary Hyperparathyroidism, unspecified Hypercalcemia Vitamin D deficiency Unspecified vitamin D deficiency Hypocalciuria Hypocalcemia Tachycardia Tachycardia, unspecified Type 2 diabetes mellitus with stage 3 chronic kidney disease and hypertension (HCC) documented in this encounter Care Teams Splitting Machine Feeder Relationship Specialty Start Date End Date Ellis Altamirano III, MD [address] [place] [address] PCP - General Family Medicine 07/23/18 documented as of this encounter"
--- OUTSIDE RECORDS SUMMARY | 2024-02-05 03:02 | External Medical Summary ---
Author Name Unknown Address Unknown Organization K01:LABORATORY [facility] [place] - [address] [place] [address] Laboratory Report Ordering Provider Test Date Status ALKA VILLANUEVA 01/14/2024 14:53:56 Final Observation Date Value Abnormality Reference (Units ) Status Parathyrin.intact [Mass/volume] in Serum or Plasma 01/14/2024 14:53:56 230 Above high normal 15-65 (pg/mL) Final Performing Location LABORATORY [facility] [place] - [address] [place] [address]
--- OUTSIDE RECORDS SUMMARY | 2024-02-05 03:02 | External Medical Summary | Summary of Care ---
Author Name Unknown Organization [facility] Address [address] [place] [address] Phone [phone] Care Team Providers Care Head Of Sales Name Role Phone Adarsh VALENTE MD, Ellis Davis Primary Care Provider [phone] Reason for Visit * Reason Onset Date Comments Referral 01/14/2024 Encounter Details Date Type Department Care Team (Late st Contact Info) Description 01/14/2024 Telephone Family Practice [facility] [address] [place] [address] Ellis Altamirano III, MD [address] [place] [address] Referral Allergies Active Allergy Reactions Criticality Noted Date Comments Adhesive Tape 11/25/2008 sore sensitive skin Penicillins Medium 01/14/2024 Not effective on pt Povidone 07/08/2009 documented as of this encounter (statuses as of 01/14/2024) Medications Medication Sig Dispensed Refills Start Date End Date Status Blood Glucose Monitoring Suppl (ONETOUCH ULTRA SYSTEM) W/DEVICE KIT Use up to four times a day as directed 1 Kit 12/19/2016 Active Aspirin 81 MG TabletIndications:Typ e 2 diabetes mellitus with hemoglobin A1c goal of less than 7.0% ([facility]) Take 1 Tab by mouth daily. 30 Tab 12/19/2016 Active Vitamin D 50 MCG (1999 UT) Oral Capsule Take 2,000 Units by mouth in the morning. Active OneTouch Ultra In Vitro Strip (Glucose Blood)Indications:Typ e 2 diabetes mellitus with hemoglobin A1c goal of less than 7.5% ([facility]) USE UP TO FOUR TIMES DAILY DIRECTED 400 Strip 2 03/16/2023 Active OneTouch Delica Lancets 30GIndications:Type 2 diabetes mellitus with stage 3 chronic kidney disease and hypertension ([facility]) USE TO CHECK GLUCOSE UP TO 4 TIMES DAILY DIRECTED 400 Each 2 03/16/2023 Active Magnesium 400 MG Oral Tablet Take by mouth. Active Atorvastatin Calcium 40 MG Oral Tablet (Lipitor) Take 1 Tablet by mouth in the morning. 90 Tablet 1 08/27/2023 Active Lisinopril 40 MG Oral TabletIndications:HTN , goal below 140/90 Take 1 Tablet by mouth in the morning. 90 Tablet 2 08/27/2023 Active Diclofenac Sodium 75 MG Oral Tablet Delayed Release (Voltaren)Indications :Primary localized osteoarthrosis, lower leg, unspecified laterality Take 1 Tablet by mouth in the morning. With food.. 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 DYSLIPIDEMIA, GOAL LDL BELOW 100 05/12/2009 Overview: Per Lipid Taxonomy. History of malignant melanoma of skin 03/15/2009 Overview: History MELANOMA low lateral R neck: pT1a 0.53mm/172.5 Status post joint replacement 03/08/2008 ADVANCE DIRECTIVE INFORMATION 05/08/2006 Overview: No, Advance Directive brochure given to patient at prior appointment. LOC PRIM [id number] 12/11/2004 Generalized osteoarthritis documented as of this encounter (statuses as of 01/14/2024) Resolved Problems Problem Noted Date Diagnosed Date [...] breast 06/18/2012 04/24/2017 BMI 50.0-59.9, adult 06/18/2012 08/18/2 018 HTN, GOAL BELOW 140/80 01/21/201209/07 Overview: [...] as of this encounter (statuses as of 01/14/2024) Immunizations Name Administration Dates Next Due COVID-19 mRNA, LNP-s, No Pre serve, 2-Dose Series ([employer]) 05/16/2021,09/15/2020,08/25/2020 COVID-19, MRNA-LNP, 23-24, P F, 30 MCG/0.3 mL, 12 YRS AND ABOVE, IM (SovTech-Comirnaty) 05/15/2023 Covid-19, Mrna, Lnp-s, Pf, B ivalent, [...] Split, I IV3, With Preserve, Inj 06/17/2014,06/05/2013,05/30/2012,03/29,03/28/2010,03/28/2009,03/08/2008 ,04/09/2006,06/19/2002 TD - Tetanus/Diptheria (ADULT) 12/21/1992 [...] Recorded PHQ Adult Total Score 0 08/22/2022 Utilities Answer Date Recorded Do you have trouble paying y our heating, water, or electric bill? (Adult - for ages 18 years and over) Not on file 11/19/2023 Is your family able to pay t he heat, water, or electric bill? (Household - for ages 0-17 years) Not on file 11/19/2023 Does your family have access to good internet? (Household - for ages 0-17 years) Not on file 11/19/2023 Social Connections Answer Date Recorded How often do you feel lonely or isolated from those around you? (Adult - for ages 18 years and over) Not on file 11/19/2023 Sex and Gender Information Value Date Recorded Sex Assigned at Female 07/27/2019 11:08 AM EST Gender Identity Female 07/27/2019 11:08 AM EST Sexual Orientation Straight 07/27/2019 11 :08 AM EST Job Start Date Occupation Industry Not on file Not on file Not on file documented as of this encounter Miscellaneous Notes * Telephone Encounter - Maegan Cisneros OSA - 01/14/2024 4:10 PM EDT No openings at this time referral deferred * Telephone Encounter - Veronica Plascencia OSA - 01/14/2024 2:56 PM EDT Tried to schedule referral did not see any avail please call patient to schedule thank you documented in this encounter Plan of Treatment Upcoming Encounters Date Type Department Care Team (Late st Contact Info) Description 01/15/2024 11:00 AM EDT Imaging Radiology, [place] [id number] [facility] [place] [address] 02/25/2024 2:15 PM EDT Office Visit Interventional Pain Center, [facility] [place] [address] [place] [address] Tyrell Castro DO [address] [place] [address] 02/27/2024 11:00 AM EDT Office Visit Family Practice [facility] [place] [address] [place] [address] Joelle Meredith PA-C [address] [place] [address] Health Maintenance Due Date Last Done Comments Fecal Occult Blood Test 1994 Sigmoidoscopy 1994 Adult Wellness Visit 12/08/2015 Colonoscopy 03/04/2019 03/04/2009 DXA Scan 03/05/2023 03/05/2016 Depression Screening 08/23/2023 08/22/2022, 12/16/19 15 Albumin/Creatinine Ratio 09/01/2023 023, 08/15/2021, 07/28/2020, Additional history exists Diabetic Eye Exam 01/12/2024 01/11/2023, , 01/10/2021, Additional history exists Influenza Vaccine (FLU shot) (#1) 2024 02/26/2023, 02/22/2022, 02/22/2021, Additional history exists HbA1c 02/27/2024 08/27/2023, 1009/2022, 08/31/2022, Additional history exists B-12 03/06/2024 03/06/2023, 02/02, 02/22/2021, Additional history exists GFR 07/16/2024 01/14/2024, 08/02, 03/06/2023, Additional history exists Diabetic Foot Exam 08/26/2024 08/27/2023, 0 02/22/2022, 02/22/2021, Additional history exists CKD PHOS USE SMARTSET 02308 09/26/202409/02, 08/27/2023, 03/06/2023, Additional history exists Cologuard 10/12/2024 10/12/2021, 09/2021, 10/04/2021 Colorectal Cancer Screening 10/12/2024 Mammogram 10/15/2024 10/16/2023, 09/02, 09/20/2022, Additional history exists CKD HGB USE SMARTSET 51978 01/13/202501/13, 08/27/2023, 08/31/2022, Additional history exists Lipid Panel 08/26/2028 08/27/2023, 08/03, 08/15/2021, Additional history exists DTaP,Tdap,and Td Vaccines (3 - Td or [...] filedocumented as of this encounter Care Teams Head Of Sales Relationship Specialty Start Date End Date Ellis Altamirano III, MD [address] [facility] [place] [address] PCP - General Family Medicine 07/23/18 documented as of this encounter
--- OUTSIDE RECORDS SUMMARY | 2024-02-05 03:02 | External Medical Summary | Summary of Care ---
Author Name Unknown Organization [facility] Address [address] [place] [address] Phone [phone] Care Team Providers Care Poultry Husbandry Worker Name Role Phone Adarsh VALENTE MD, Ellis Davis Primary Care Provider [phone] Encounter Details Date Type Department Care Team (Late st Contact Info) Description 01/15/2024 Orders Only Family Practice [facility] [address] [facility] [place] [address] Ellis Altamirano III, MD [address] [place] [address] Allergies Active Allergy Reactions Criticality Noted Date Comments Adhesive Tape 11/25/2008 sore sensitive skin Penicillins Medium 01/14/2024 Not effective on pt Povidone 07/08/2009 documented as of this encounter (statuses as of 01/15/2024) Medications Medication Sig Dispensed Refills Start Date End Date Status Blood Glucose Monitoring Suppl (ONETOUCH ULTRA SYSTEM) W/DEVICE KIT Use up to four times a day as directed 1 Kit 12/19/2016 Active Aspirin 81 MG TabletIndications:Typ e 2 diabetes mellitus with hemoglobin A1c goal of less than 7.0% ([facility]) Take 1 Tab by mouth daily. 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 DYSLIPIDEMIA, GOAL LDL BELOW 100 05/12/2009 Overview: Per Lipid Taxonomy. History of malignant melanoma of skin 03/15/2009 Overview: History MELANOMA low lateral R neck: pT1a 0.53mm/172.5 Status post joint replacement 03/08/2008 ADVANCE DIRECTIVE INFORMATION 05/08/2006 Overview: No, Advance Directive brochure given to patient at prior appointment. LOC PRIM [id number] 12/11/2004 Generalized osteoarthritis documented as of this encounter (statuses as of 01/15/2024) Resolved Problems Problem Noted Date Diagnosed Date [...] as of this encounter (statuses as of 01/15/2024) Immunizations Name Administration Dates Next Due COVID-19 mRNA, LNP-s, No Pre serve, 2-Dose Series ([employer]) 05/16/2021,09/15/2020,08/25/2020 COVID-19, MRNA-LNP, 23-24, P F, 30 MCG/0.3 mL, 12 YRS AND ABOVE, IM ([email or web address]-Comirnat) 05/15/2023 Covid-19, Mrna, Lnp-s, Pf, B ivalent, [...] Description 01/15/2024 11:00 AM EDT Imaging Radiology, [facility] [address] [facility] [place] [address] 02/25/2024 2:15 PM EDT Office Visit Interventional Pain Center, [facility] [address] [place] [address] Tyrell Castro DO [address] [place] [address] 02/27/2024 11:00 AM EDT Office Visit Family Practice [facility] [address] [facility] [place] [address] Joelle Meredith PA-C [address] [facility] [place] [address] Health Maintenance Due Date Last Done Comments Fecal Occult Blood Test 1994 Sigmoidoscopy 1994 Adult Wellness Visit 12/08/2015 Colonoscopy 03/04/2019 03/04/2009 DXA Scan 03/05/2023 03/05/2016 Depression Screening 08/23/2023 08/22/2022, 12/16/19 15 Albumin/Creatinine Ratio 09/01/2023 023, 08/15/2021, 07/28/2020, Additional history exists Diabetic Eye Exam 01/12/2024 01/13/2024, , 01/09/2022, Additional history exists Influenza Vaccine (FLU shot) (#1) 2024 02/26/2023, 02/22/2022, 02/22/2021, Additional history exists B-12 03/06/2024 03/06/2023, 02/02, 02/22/2021, Additional history exists GFR 07/16/2024 01/14/2024, 08/02, 03/06/2023, Additional history exists HbA1c 07/16/2024 01/14/2024, 08/02, 03/06/2023, Additional history exists Diabetic Foot Exam 08/26/2024 08/27/2023, 0 02/22/2022, 02/22/2021, Additional history exists CKD PHOS USE SMARTSET 84834 09/26/20242 11/2023, 08/27/2023, 03/06/2023, Additional history exists Cologuard 10/12/2024 10/12/2021, 05/0 09/2021, 10/04/2021 Colorectal Cancer Screening 10/12/2024 Mammogram 10/15/2024 10/16/2023, 09/02, 09/20/2022, Additional history exists CKD HGB USE SMARTSET 42042 01/13/202501/13, 08/27/2023, 08/31/2022, Additional history exists Lipid [...] Procedure Name Priority Date/Time Associated Diagnosis Comments DIABETIC EYE EXAM Routine 01/13/2024 documented in this encounter Results * DIABETIC EYE EXAM (01/13/2024) 01/13/2024 [place] OD OTH ER OUTSIDE LAB (SEE SCANNED REPORT) documented in this encounter Care Teams Poultry Husbandry Worker Relationship Specialty Start Date End Date Ellis Altamirano III, MD [address] [facility] [place] [address] PCP - General Family Medicine 07/23/18 documented as of this encounter
--- OUTSIDE RECORDS SUMMARY | 2024-02-05 03:02 | External Medical Summary | Summary of Care ---
Author Name Unknown Organization [facility] Address [address] [place] [address] Phone [phone] Care Team Providers Care Finisher Hand Name Role Phone Adarsh VALENTE MD, Ellis Davis Primary Care Provider [phone] Reason for Visit * Reason Comments Outpatient Testing Encounter Details Date Type Department Care Team (Late st Contact Info) Description 01/14/2024 3:00 PM EDT Laboratory Laboratory, [facility] [address] [place] [address] [facility] [address] [place] [address] Hyperparathyroidism, primary ([facility]); Hypercalcemia; Type 2 diabetes mellitus with stage 3 chronic kidney disease and hypertension ([facility]) Allergies Active Allergy Reactions Criticality Noted Date Comments Adhesive Tape 11/25/2008 sore sensitive skin Penicillins Medium 01/14/2024 Not effective on pt Povidone 07/08/2009 documented as of this encounter (statuses as of 01/14/2024) Medications Medication Sig Dispensed Refills Start Date End Date Status Blood Glucose Monitoring Suppl (Pipit InteractiveTOUCH ULTRA SYSTEM) W/DEVICE KIT Use up to four times a day as directed 1 Kit 12/19/2016 Active Aspirin 81 MG TabletIndications:Typ e 2 diabetes mellitus with hemoglobin A1c goal of less than 7.0% ([facility]) Take 1 Tab by mouth daily. 30 [...] diabetic peripheral angiopathy without gangrene, unspecified whether terminal manager insulin use (HCC) Take 1 Tablet [...] without gangrene 12/19/2017 Elevated parathyroid hormone 12/21/2016 long-term current use of aromatase inhibitor HTN, goal below 140/90 08/08/2015 Overview: Per HTN Protocol #27. DYSLIPIDEMIA, GOAL LDL BELOW 100 05/12/2009 Overview: Per Lipid Taxonomy. History of malignant melanoma of skin 03/15/2009 Overview: History MELANOMA low lateral R neck: pT1a 0.53mm/172.5 Status post joint replacement 03/08/2008 ADVANCE DIRECTIVE INFORMATION 05/08/2006 Overview: No, Advance Directive brochure given to patient at prior appointment. LOC PRIM [id number] 12/11/2004 Generalized osteoarthritis documented as of this [...] mRNA, LNP-s, No Pre serve, 2-Dose Series ([employer]) 05/16/2021,09/15/2020,08/25/2020 COVID-19, MRNA-LNP, 23-24, P F, 30 MCG/0.3 mL, 12 YRS AND ABOVE, IM (Xobni-Comirnat) 05/15/2023 Covid-19, Mrna, Lnp-s, Pf, B ivalent, [...] Description 01/15/2024 11:00 AM EDT Imaging Radiology, [facility] [address] [facility] [place] [address] 02/25/2024 2:15 PM EDT Office Visit Interventional Pain Center, [facility] [address] [place] [address] Tyrell Castro DO [address] [place] [address] 02/27/2024 11:00 AM EDT Office Visit Family Practice [facility] [address] [facility] [place] [address] Joelle Meredith PA-C [address] [facility] [place] [address] Pending Results Name Type Priority Associated Diagnoses Date /Time BASIC METABOLIC PANEL Lab Routine Hyperparathyroidism, primary (HCC) Hypercalcemia 01/14/2024 2:53 PM EDT PTH Lab Routine Hyperparathyroidism, primary (HCC) Hypercalcemia 01/14/2024 2:53 PM EDT HEMOGLOBIN A1C Lab Routine Type 2 diabetes mellitus with stage 3 chronic kidney disease and hypertension (HCC) 01/14/2024 2:53 PM EDT CBC Lab Routine Type 2 diabetes mellitus with stage 3 chronic kidney disease and hypertension (HCC) 01/14/2024 2:53 PM EDT 25-HYDROXY VITAMIN D Lab Routine Hyperparathyroidism, primary (HCC) Hypercalcemia 01/14/2024 2:53 PM EDT Health Maintenance Due Date Last [...] 2024 02/26/2023, 02/22/2022, 02/22/2021, Additional history exists GFR 02/27/2024 08/27/2023, 10/0 09/2022, 08/31/2022, Additional history exists HbA1c 02/27/2024 08/27/2023, 100 09/2022, 08/31/2022, Additional history exists B-12 03/06/2024 03/06/2023, 02/02, 02/22/2021, Additional history exists CKD HGB USE SMARTSET 83450 08/26/202408/26, 08/31/2022, 08/15/2021, Additional history exists Diabetic Foot Exam 08/26/2024 08/27/2023, 0 02/22/2022, 02/22/2021, Additional history exists CKD PHOS USE SMARTSET 30326 09/26/202409/02, 08/27/2023, 03/06/2023, Additional history exists Cologuard 10/12/2024 10/12/2021, 050 09/2021, 10/04/2021 Colorectal Cancer Screening 10/12/2024 Mammogram 10/15/2024 10/16/2023, 09/02, 09/20/2022, Additional history exists Lipid Panel 08/26/2028 08/27/2023, [...] as of this encounter Visit Diagnoses Diagnosis Hyperparathyroidism, primary (HCC) Primary hyperparathyroidism Hypercalcemia Type 2 diabetes mellitus with stage 3 chronic kidney disease and hypertension (HCC) documented in this encounter Care Teams Finisher Hand Relationship Specialty Start Date End Date Ellis Altamirano III, MD [address] [place] [address] PCP - General Family Medicine 07/23/18 documented as of this encounter
--- OUTSIDE RECORDS SUMMARY | 2024-02-05 03:02 | External Medical Summary ---
Author Name Unknown Address Unknown Organization K0G:[facility] [address] [place] [address] Laboratory Report Ordering Provider Test Date Status ALKA VILLANUEVA 01/14/2024 14:53:56 Final Observation Date Value Abnormality Reference (Units ) Status WBC, Total 01/14/2024 14:53:56 6.96 4.00-10.8 0 (K/uL) Final RBC 01/14/2024 14:53:56 3.99 3.85-5.15 (M/uL) Final Hemoglobin 01/14/2024 14:53:56 11.9 Below low normal 12 .0-15.3 (g/dL) Final HCT 01/14/2024 14:53:56 37.8 36.0-45.2 (%) Final MCV 01/14/2024 14:53:56 94.7 81.5-97.5 (fL) Final MCH 01/14/2024 14:53:56 29.8 27.0-34.0 (pg) Final MCHC 01/14/2024 14:53:56 31.5 32.0-36.0 (g/dL) Final RDW 01/14/2024 14:53:56 16.6 11.5-15.5 (%) Final Platelets 01/14/2024 14:53:56 250 140-400 (K /uL) Final MPV 01/14/2024 14:53:56 10.1 6.6-11.1 ( fL) Final Performing Location [facility] - [address] [place] [address]
--- OUTSIDE RECORDS SUMMARY | 2024-02-05 03:02 | External Medical Summary ---
Author Name Unknown Address Unknown Organization K01:[facility] - [address] [facility] [address] Laboratory Report Ordering Provider Test Date Status ALKA VILLANUEVA 01/14/2024 14:53:56 Final Observation Date Value Abnormality Reference (Units ) Status HbA1C 01/14/2024 14:53:56 6.7 Above high normal 4. 0-5.6 (%) Final The use of HbA1c to monitor glycemic status is based on normal hemoglobin and HbA composition. This test should not be used in patients with abnormal hemoglobin that affects the half life of the red blood cell or the in vivo glycation rates. Glucose, estimated average 01/14/2024 14:53:56 146 Above high normal <126 (mg/dL) Laz villanueva Performing Location [facility] - [address] [place] [address]
--- OUTSIDE RECORDS SUMMARY | 2024-02-05 03:02 | External Medical Summary | Summary of Care ---
Author Name Unknown Organization [facility] Address [address] [place] [address] Phone [phone] Care Team Providers Care Server Manager Name Role Phone Adarsh VALENTE MD, Ellis Davis Primary Care Provider [phone] Reason for Visit * Reason Onset Date Comments Referral 01/14/2024 Encounter Details Date Type Department Care Team (Late st Contact Info) Description 01/14/[address] [facility] [address] [place] [address] Ellis Altamirano III, MD [address] [place] [address] Referral Allergies Active Allergy Reactions Criticality Noted [...] goal of less than 7.0% ([facility]) Take 1 Tab by mouth daily. 30 Tab 12/19/2016 Active Vitamin D 50 MCG (1999 UT) Oral Capsule Take 2,000 Units by mouth in the morning. Active OneTouch Ultra In Vitro Strip (Glucose Blood)Indications:Typ e 2 diabetes mellitus with hemoglobin A1c goal of less than 7.5% ([facility]) USE UP TO FOUR TIMES DAILY DIRECTED 400 Strip 2 03/16/2023 Active OneTouch Delica Lancets 30GIndications:Type 2 diabetes mellitus with stage 3 chronic kidney disease and hypertension ([facility]) USE TO CHECK GLUCOSE UP [...] diabetic peripheral angiopathy without gangrene, unspecified whether care home insulin use (HCC) Take 1 Tablet [...] without gangrene 12/19/2017 Elevated parathyroid hormone 12/21/2016 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 DYSLIPIDEMIA, GOAL LDL BELOW 100 05/12/2009 Overview: Per Lipid Taxonomy. History of malignant melanoma of skin 03/15/2009 Overview: History MELANOMA low lateral R neck: pT1a 0.53mm/172.5 Status post joint replacement 03/08/2008 ADVANCE DIRECTIVE INFORMATION 05/08/2006 Overview: No, Advance Directive brochure given to patient at prior appointment. LOC PRIM [id number] 12/11/2004 Generalized osteoarthritis documented as of this [...] mRNA, LNP-s, No Pre serve, 2-Dose Series ([employer]) 05/16/2021,09/15/2020,08/25/2020 COVID-19, MRNA-LNP, 23-24, P F, 30 MCG/0.3 mL, 12 YRS AND ABOVE, IM ([employer]-Comirnaty) 05/15/2023 Covid-19, Mrna, Lnp-s, Pf, B ivalent, [...] encounter Miscellaneous Notes * Telephone Encounter - Veronica Plascencia OSA - 01/14/2024 2:56 PM EDT Tried to schedule referral did not see any avail please call patient to schedule thank you documented in this encounter Plan of Treatment Upcoming Encounters Date Type Department Care Team (Late st Contact Info) Description 01/15/2024 11:00 AM EDT Imaging Radiology, [place] [address] [place] [address] 02/25/2024 2:15 PM EDT Office Visit Interventional Pain Center, [facility] [address] [place] [address] Tyrell Castro DO [address] [place] [phone] 02/27/2024 11:00 AM EDT Office Visit Family Practice [facility] [address] [facility] [place] [address] Joelle Meredith PA-C [address] [facility] [place] [address] Health Maintenance Due Date Last Done Comments [...] 02/22/2021, Additional history exists GFR 02/27/2024 08/27/2023, 100 09/2022, 08/31/2022, Additional history exists HbA1c 02/27/2024 08/27/2023, 100 09/2022, 08/31/2022, Additional history exists B-12 03/06/2024 03/06/2023, 02/02, 02/22/2021, Additional history exists CKD HGB USE SMARTSET 89723 08/26/202408/26, 08/31/2022, 08/15/2021, Additional history exists Diabetic Foot Exam 08/26/2024 08/27/2023, 0 02/22/2022, 02/22/2021, Additional history exists CKD PHOS USE SMARTSET 80579 09/26/202409/02, 08/27/2023, 03/06/2023, Additional history exists Cologuard [...] filedocumented as of this encounter Care Teams Server Manager Relationship Specialty Start Date End Date Ellis Altamirano III, MD [address] [facility] [place] [address] PCP - General Family Medicine 07/23/18 documented as of this encounter
--- OUTSIDE RECORDS SUMMARY | 2024-02-05 03:02 | External Medical Summary ---
Author Name Unknown Address Unknown Organization K0G:[facility] [place] [facility] [address] - [address] [place] [address] Laboratory Report Ordering Provider Test Date Status ALKA VILLANUEVA 01/14/2024 14:53:56 Final Observation Date Value Abnormality Reference (Units ) Status BUN 01/14/2024 14:53:56 43 Above high normal 6-20 (mg/dL) Final Creatinine 01/14/2024 14:53:56 1.7 Above high normal 0.5-1.0 (mg/dL) Final Glomerular filtration rate/1.73 sq M.predicted [Volume Rate/Area] in Serum, Plasma or Blood by Creatinine-based formula (CKD-EPI) 01/14/2024 14:53:56 32 Below low normal >=60 (mL/min) Final eGFR is calculated based on the CKD-EPI 2020 equation. Sodium 01/14/2024 14:53:56 141 135-146 (m mol/L) Final Potassium 01/14/2024 14:53:56 5.2 Above high normal 3. 5-5.1 (mmol/L) Final Cl 01/14/2024 14:53:56 105 98-107 (mm ol/L) Final CO2 01/14/2024 14:53:56 22 22-32 (mmo l/L) Final Anion gap 01/14/2024 14:53:56 14 7-15 (mmol /L) Final Glucose 01/14/2024 14:53:56 168 Above high normal 70 -120 (mg/dL) Final Calcium 01/14/2024 14:53:56 11.4 Above high normal 8. 4-10.2 (mg/dL) Final Performing Location [facility] - [address] [place] [address]
--- OUTSIDE RECORDS SUMMARY | 2024-02-05 03:02 | External Medical Summary | Summary of Care ---
Author Name Unknown Organization [facility] Address [address] [place] [address] Phone [phone] Care Team Providers Care Healthcare Manager Name Role Phone Adarsh VALENTE MD, Ellis Davis Primary Care Provider [phone] Reason for Referral * Evaluate & Treat - Unlimited Visits (Within 10 days (routine)) - Authorized Specialty Diagnoses / Procedures Referred By Contac t Referred To Contact Endocrinology/Metabolism / Endocrinology Diagnoses Hyperparathyroidism, primary (HCC) Hypercalcemia Reza Knott MD [address] [place] [address] Referral ID Status Reason Start Date Expiration Date Visits Requested Visits Authorized [id number] Authorized Specialty Services Required 01/14/2024 999 999 Question Answer Referral Priority Within 10 days (routine) Where should this appointment be scheduled? [facility] For what condition is the patient being referred? Calcium and Bone For which calcium and bone condition are you referring? Parathyroid Comments Primary hyperparathyroidism and possible parathyroidectomy with hypercalcemia Reason for Visit * Reason Comments Edema Pt here for complain ts of edema in her feet and legs that has gotten worse over the last 2-3 weeks. Pt states that it is effecting her ambulation. Acute Pt states that her p arathyroid level is high and would like to see a specialist. Encounter Details Date Type Department Care Team (Late st Contact Info) Description 01/14/2024 2:00 PM EDT [facility] [address] [place] [address] Reza Knott MD [address] [place] [address] Hyperparathyroidism, primary (HCC)*; Hypercalcemia; Osteoporosis without current pathological fracture, unspecified osteoporosis type; Type 2 diabetes mellitus with stage 3 chronic kidney disease and hypertension (HCC); Bilateral lower extremity edema Allergies Active Allergy Reactions Criticality Noted Date Comments Adhesive Tape 11/25/2008 sore sensitive skin Penicillins Medium 01/14/2024 Not effective on pt Povidone 07/08/2009 documented as of this encounter (statuses as of 01/14/2024) Medications Medication Sig Dispensed Refills Start Date End Date Status Blood Glucose Monitoring Suppl (Round the Mark MarketingTOUCH ULTRA SYSTEM) W/DEVICE KIT Use up to four times a day as directed 1 Kit 12/19/2016 Active Aspirin 81 MG TabletIndications:Typ e 2 diabetes mellitus with hemoglobin A1c goal of less than 7.0% (HCC) Take 1 Tab by mouth daily. 30 Tab 12/19/2016 Active Vitamin D 50 MCG (2000 UT) Oral Capsule Take 2,000 Units by mouth in the morning. 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 DYSLIPIDEMIA, GOAL LDL BELOW 100 05/12/2009 Overview: Per Lipid Taxonomy. History of malignant melanoma of skin 03/15/2009 Overview: History MELANOMA low lateral R neck: pT1a 0.53mm/172.5 Status post joint replacement 03/08/2008 ADVANCE DIRECTIVE INFORMATION 05/08/2006 Overview: No, Advance Directive brochure given to patient at prior appointment. LOC PRIM [id number] 12/11/2004 Generalized osteoarthritis documented as of this [...] mRNA, LNP-s, No Pre serve, 2-Dose Series ([employer]) 05/16/2021,09/15/2020,08/25/2020 COVID-19, MRNA-LNP, 23-24, P F, 30 MCG/0.3 mL, 12 YRS AND ABOVE, IM ([employer]) 05/15/2023 Covid-19, Mrna, Lnp-s, Pf, B ivalent, 30 Mcg, IM, 12 yrs and above ([employer]) 03/08/2022 Pneumococcal Conjugate Vacc, 13 Valent (Prevnar) [...] Sign Reading Time Taken Comments Blood Pressure 102/56 01/14/2024 2:02 PM EDT Pulse 146 01/14/2024 2:02 PM EDT Temperature 35.9 C (96.7 F) 01/14/2024 2:02 PM ED T Respiratory Rate 16 01/14/2024 2:02 PM EDT Oxygen Saturation 95% 01/14/2024 2:02 PM EDT Inhaled Oxygen Concentration - - Weight 159.5 kg (351 lb 9.6 oz) 01/14/2024 2:02 PM EDT Height 162.6 cm (5' 4") 01/14/2024 2:02 PM EDT Body Mass Index 60.35 01/14/2024 2:02 PM EDT documented in this encounter Progress Notes * Reza Knott MD - 01/14/2024 2:30 PM EDT Images from the original note were not included. History of Present Illness Chastity Su is a 73 year old female that presents for Edema (Pt here for complaints of edema in her feet and legs that has gotten worse over the last 2-3 weeks. Pt states that it is effecting her ambulation.) and Acute (Pt states that her parathyroid level is high and would like to see a specialist.) Physical Exam BP 102/56 (BP Site: Left Arm, BP Position: Sitting, BP Cuff Size: Large) | Pulse 146 | Temp 35.9 C (96.7 F) (Tympanic) | Resp 16 | Ht 1.626 m (5' 4") | Wt (!) 159.5 kg (351 lb 9.6 oz) | SpO2 95% | BMI 60.35 kg/m | BSA 2.68 m AAOx3 Normal affect NCAT/ Neck supple Ext warm and well perfused + pitting edema to upper leg b/l Chronic venous stasis skin changes b/l with some woody edema No gross neuro deficits Antalgic gait using cane I have reviewed most recent labs all from last two rounds of blood work Assessment and Plan Hyperparathyroidism, primary (HCC) - reviewed labs from recently and then back a few years. She has been hypercalcemic for some time. She has elevated PTH and a normal 24 hr urine. Last vitamin d level was 33. Recheck that along with PTH and referred to endo and will likely need to see endo surgery in [place]. - ADULT ENDOCRINOLOGY REFERRAL OP - BASIC METABOLIC PANEL; Future - PTH; Future Hypercalcemia - - ADULT ENDOCRINOLOGY REFERRAL OP - BASIC METABOLIC PANEL; Future - PTH; Future Osteoporosis without current pathological fracture, unspecified osteoporosis type - update DEXA - DEXA SCAN/BONE MINERAL AXIAL Type 2 diabetes mellitus with stage 3 chronic kidney disease and hypertension (HCC) - update labs and will start empagliflozin daily. Discussed side fx and risks. This is a good choice for her as it will help in a few ways - sugar, edema, CV benefit. - HEMOGLOBIN A1C; Future - CBC; Future Bilateral lower extremity edema - chronic venous stasis changes with some dependent edema as well. Recommend elevated, increase Wrap-Up Keep scheduled f/u Time: I spent a total of 40-54 minutes (exact time 42 mins) on the date of service in preparation, delivery, and documentation of the care provided to Chastity Su excluding any time spent in the performance of separately billed services. documented in this encounter Plan of Treatment Upcoming Encounters Date Type Department Care Team (Late st Contact Info) Description 01/14/2024 3:00 PM EDT Laboratory Laboratory, [facility] [address] [facility] [place] [phone] [facility] [address] [facility] [place] [address] Hyperparathyroidism, primary (HCC); Hypercalcemia; Type 2 diabetes mellitus with stage 3 chronic kidney disease and hypertension (HCC) 01/15/2024 11:00 AM EDT Imaging Radiology, [address] [place] [address] 02/25/2024 2:15 PM EDT Office Visit Interventional Pain Center, [facility] [address] [facility] [place] [address] Tyrell Castro DO [address] [place] [phone] 02/27/2024 11:00 AM EDT Office Visit [facility] [address] [place] [address] Joelle Meredith PA-C [address] [place] [address] Pending Results Name Type Priority Associated Diagnoses [...] primary (HCC) Hypercalcemia 01/14/2024 2:53 PM EDT Scheduled Orders Name Type Priority Associated Diagnoses Orde r Schedule DEXA SCAN/BONE MINERAL AXIAL Medical Imaging Routine Osteoporosis without current pathological fracture, unspecified osteoporosis type Ordered: 01/14/2024 BASIC METABOLIC PANEL Lab Routine Hyperparathyroidism, primary (HCC) Hypercalcemia Expected: 01/14/2024 (Approximate), Expires: 01/13/2025 PTH Lab Routine Hyperparathyroidism, primary (HCC) Hypercalcemia Expected: 01/14/2024 (Approximate), Expires: 01/13/2025 HEMOGLOBIN A1C Lab Routine Type 2 diabetes mellitus with stage 3 chronic kidney disease and hypertension (HCC) Expected: 01/14/2024 (Approximate), Expires: 01/13/2025 CBC Lab Routine Type 2 diabetes mellitus with stage 3 chronic kidney disease and hypertension (HCC) Expected: 01/14/2024 (Approximate), Expires: 01/13/2025 25-HYDROXY VITAMIN D Lab Routine Hyperparathyroidism, primary (HCC) Hypercalcemia Expected: 01/14/2024 (Approximate), Expires: 01/13/2025 Scheduled Referrals Name Type Priority Associated Diagnoses Order Schedule ADULT ENDOCRINOLOGY REFERRAL OP Referral Within 10 days (routine) Hyperparathyroidism , primary (HCC) Hypercalcemia Ordered: 01/14/2024 Health Maintenance Due Date Last Done Comments [...] Additional history exists CKD HGB USE SMARTSET 97658 08/26/202408/26, 08/31/2022, 08/15/2021, Additional history exists Diabetic Foot Exam 08/26/2024 08/27/2023, 0 02/22/2022, 02/22/2021, Additional history exists CKD PHOS USE SMARTSET 27666 09/26/202409/02, 08/27/2023, 03/06/2023, Additional history exists Cologuard 10/12/2024 10/12/2021, 0 09/2021, 10/04/2021 Colorectal Cancer Screening 10/12/2024 Mammogram [...] this encounter Visit Diagnoses Diagnosis Hyperparathyroidism, primary (HCC)- Primary Primary hyperparathyroidism Hypercalcemia Osteoporosis without current pathological fracture, unspecified osteoporosis type Type 2 diabetes mellitus with stage 3 chronic kidney disease and hypertension (HCC) Bilateral lower extremity edema Edema Hyperparathyroidism, primary (HCC) Primary hyperparathyroidism Hypercalcemia Type 2 diabetes mellitus with stage 3 chronic kidney disease and hypertension (HCC) documented in this encounter Care Teams Healthcare Manager Relationship Specialty Start Date End Date Ellis Altamirano III, MD [address] [facility] [place] [address] PCP - General Family Medicine 07/23/18 documented as of this encounter
--- OUTSIDE RECORDS SUMMARY | 2024-02-05 03:03 | External Medical Summary | Summary of Care ---
Author Name Unknown Organization [facility] Address [address] [place] [address] Phone [phone] Care Team Providers Care Business Database Analyst Name Role Phone Adarsh VALENTE MD, Ellis Davis Primary Care Provider [phone] Reason for Referral * Evaluate & Treat - Unlimited Visits (Within 24 hrs (call dept; emergent)) - Authorized Specialty Diagnoses / Procedures Referred By Contac t Referred To Contact Pain Management / Pain Medicine Diagnoses Chronic left shoulder pain Humberto Han MD [address] [place] [address] Referral ID Status Reason Start Date Expiration Date Visits Requested Visits Authorized [id number] Authorized Specialty Services Required 12/24/2023 999 999 Question Answer Referral Priority Within 24 hrs (call dept; emergent) Where should this appointment be scheduled? [facility] Reason for referral? Interventional Pain Management - (Injection) What condition is the patient being referred for? Hip/Shoulder/Knee What is the preferred location to have this test performed? [facility] Comments Patient Name: Chastity Su Date of : 1950 Department Phone Number: MRI or CT (if unable to have a MRI) is recommended if any of the following apply: 1. Patient has neck or back pain with radiation to extremities. A previous MRI will be accepted if symptoms unchanged since prior MRI. 2. Spinal surgery since last MRI. If yes, order a MRI with and without contrast. 3. Hx or ongoing cancer treatment. Patient will need spine x-ray (Ap/Lat) for axial neck or back pain if not done previously. Fax No. [facility] [phone] or contact front end ui developer [phone] Fax No. [facility] [phone] or contact front end ui developer [phone] Fax No. [facility] [phone] or contact front end ui developer [phone] Reason for Visit * Reason Comments Follow Up L shoulder Pain * Evaluate & Treat - Unlimited Visits (Within 10 days (routine)) - Closed Specialty Diagnoses / Procedures Referred By Contjose angel t Referred To Contact Orthopaedic Surgery / Orthopedics Diagnoses Shoulder arthritis Joelle Meredith PA-C [address] [place] [address] Referral ID Status Reason Start Date Expiration Date V isits Requested Visits Authorized [id number] Closed Specialty Services Required 09/11/2022 999 999 Encounter Details Date Type Department Care Team (Late st Contact Info) Description 12/24/2023 2:00 PM EDT Office Visit Orthopaedics [facility] [address] [place] [address] Humberto Han MD [address] [place] [address] Chronic left shoulder pain*; Chronic right shoulder pain Allergies Active Allergy Reactions Criticality Noted Date Comments Adhesive Tape 11/25/2008 sore sensitive skin Povidone 07/08/2009 documented as of this encounter (statuses as of 12/24/2023) Medications Medication Sig Dispensed Refills Start Date End Date Status Blood Glucose Monitoring Suppl ([employer] ULTRA SYSTEM) W/DEVICE KIT Use up to four times a day as directed 1 Kit 12/19/2016 Active Aspirin 81 MG TabletIndications:Typ e 2 diabetes mellitus with hemoglobin A1c goal of less than 7.0% ([facility]) Take 1 Tab by mouth daily. 30 [...] diabetic peripheral angiopathy without gangrene, unspecified whether longterm insulin use (HCC) Take 1 Tablet by [...] the morning. 90 Tablet 2 08/27/2023 Active documented as of this encounter (statuses as of 12/24/2023) Active Problems Problem Noted Date Diagnosed Date Type 2 diabetes mellitus wit h stage [...] to patient at prior appointment. LOC PRIM [id number] 12/11/2004 Generalized osteoarthritis documented as of this encounter (statuses as of 12/24/2023) Resolved Problems Problem Noted Date Diagnosed Date [...] as of this encounter (statuses as of 12/24/2023) Immunizations Name Administration Dates Next Due COVID-19 mRNA, LNP-s, No Pre serve, 2-Dose Series ([employer]) 05/16/2021,09/15/2020,08/25/2020 COVID-19, MRNA-LNP, 23-24, P F, 30 MCG/0.3 mL, 12 YRS AND ABOVE, IM ([employer]-Comirnaty) 05/15/2023 Covid-19, Mrna, Lnp-s, Pf, B ivalent, [...] on file documented as of this encounter Progress Notes * Humberto Han MD - 12/24/2023 1:50 PM EDT Chastity Su [id number] Chastity Su is a 72 year old female who presents for to [facility] for NEW evaluation of R shoulder pain and f/u of left shoulder injury/pain. I saw her originally for L shoulder pain on 09/19/2022 I saw her originally for R shoulder pain on 11/25/2023 which is also the most recent visit for her left shoulder Chastity Su is here unaccompanied History: Level of pain: reviewed and agree with Nursing Notes for HPI elements History on 09/19/2022 - Referred by Joelle Meredith PA-C for left shoulder pain X 6 months. NKI. Pt is RHD. Reduced ROM. Pt takes Voltaren daily. Additional history 11/07/2022: Patient presents for follow up of chronic L shoulder pain. Patient reports pain varies due to amount and type of activity. Patient notes increased soreness today Additional history 08/13/2023 presents for follow up L shoulder, received US guided injection 11/07/2022 with relief until 6-8 weeks ago. Would like to try another injection today Additional history on 09/16/2023: f/u L shoulder -I saw her originally for this on 09/19/2022 -steroid injection L shoulder 08/13/23; Pt only had a few days relief -NEW R shoulder today -Xray R shoulder today -Pt c/o 10 pain today in bilateral shoulder History on 10/07/2023 No change in symptoms, MRI was obtained and is described below Additional history on 11/25/2023: f/u bilateral shoulder -MRI 09/30/23 L shoulder -steroid injection L shoulder 08/13/23; Pt had 2-3 days relief -Xray R shoulder 09/16/23 -PT: Pt stated she went to 8 visits and does not see any benefit -Pt is unaccompanied today She points laterally as the greatest pain generator. On occasion pain can radiate towards the [place] beyond. Since that visit: Reports significant benefit from the palpation/landmark subacromial steroid injection I performed for her on 11/25/2023. She is relatively pleased although she still has some pain and decreased motion. ROS: ROS per HPI otherwise non-contributory Past Medical History: Diagnosis Date Diabetic eye exam (HCC) 11/11/2012 no retinopathy DM type 2, goal A1c below 7 Diabetes Type II, Controlled Generalized osteoarthritis History of lobular carcinoma of breast 06/05/2018 HTN, goal below 140/90 Malignant melanoma of trunk (HCC) Right neck Mixed dyslipidemia Morbid obesity, BMI not known (HCC) Undiagnosed cardiac murmurs PVC's Varicella without complication Family History Problem Relation Name Age of [...] on file Occupational History Occupation: clerical/bookkeeping Employer: [employer] Tobacco Use Smoking status: Never Smokeless [...] Social Determinants of Health Financial Resource Strain: Not on file Food Insecurity: Not on file Transportation Needs: Not on file Social Connections: Unknown (11/19/2023) Social Connections How often do you feel lonely or isolated from those around you? (Adult - for ages 18 years and over): Not on file Housing Stability: Not on file Physical Exam Constitutional: Generally well-nourished and in no acute distress Psychiatric: Mood and Affect normal Eyes: EOMI Respiratory: Normal respiratory effort with regular rate and rhythm Shoulder Exam Inspection: unremarkable Left: Tender palpate anterior posterior glenohumeral joint, mild tenderness at the AC joint and also tenderness at the greater tuberosity Forward Flexion (normal 180): L - 100, right 160 Abduction (normal 180): L - 100, right 160 Internal Rotation: L5 BL Radiology (I have personally reviewed the following films): 09/30/2023: MRI of the left shoulder IMPRESSION 1. Severe glenohumeral and acromioclavicular osteoarthritis. 2. Supraspinatus and infraspinatus tendinopathy, without a discrete tendon tear. 3. Long head biceps tendinopathy and tenosynovitis 09/16/2023: Four view x-ray of the right shoulder IMPRESSION: Osteoarthritis. CPPD arthropathy less likely considered differential possibility. 08/22/2022: 4 view xr L shoulder FINDINGS There is moderate osteoarthritis of the glenohumeral and acromioclavicular joints with mineralization consistent with chondrocalcinosis. The acromiohumeral distance is normal. Bones are osteopenic. No fracture. IMPRESSION IMPRESSION Moderate glenohumeral and acromioclavicular joint osteoarthritis with chondrocalcinosis Assessment and Plan: 1) Chronic left shoulder pain I have suspect both rotator cuff tendinosis and DJD MRI showed: 09/30/2023: MRI of the left shoulder IMPRESSION 1. Severe glenohumeral and acromioclavicular osteoarthritis. 2. Supraspinatus and infraspinatus tendinopathy, without a discrete tendon tear. 3. Long head biceps tendinopathy and tenosynovitis recommended glenohumeral joint steroid injection which the patient agreed to and this was performedtoday 11/07/2022 with ultrasound guidance. Patient received 7-8 months benefit from that injection However, glenohumeral joint steroid injection performed with ultrasound sound guidance 08/13/2023 Helped significantly but only for several days. Discussed options of trying repeat glenohumeral joint steroid injection versus trying a different injection. Suspect a component of her pain is from her rotator cuff tendinopathy as well as bursitis and recommended trying an ultrasound guided subacromial bursa steroid injection which the patient agreed to. Subacromial bursa steroid injection performed with palpation/landmark guidance 11/25/2023 Reports significant benefit from the palpation/landmark subacromial steroid injection I performed for her on 11/25/2023. She is relatively pleased although she still has some pain and decreased motion. Patient had substantial improvement from a physical therapy course over a year ago as well as this past spring. Past spring she did 8 sessions before stopping with my injection. She did not return after the injection as she was not doing benefit. She desired to discuss additional options and I recommended consultation with pain management for potential nerve ablation. She was in agreement. Referral placed. Given her BMI she would not be considered a surgical candidate She will follow up with me based on her evaluations and treatments through pain management 2) Chronic R shoulder pain Suspect a component is from AC arthritis however the shoulder is currently not doing that bad. The left is much greatest concern for her. Reports her right shoulder is doing okay. She does not desire any further treatments as of today 12/24/2023 Pt is Diabetic; A1C 6.5 on 08/27/23 Humberto Han MD Primary Care Sports Medicine Orthopaedics [facility] [address] [place] [address] documented in this encounter Nursing Notes * Valentina Pereira LPN - 12/24/2023 1:57 PM EDT F/u L shoulder -L shoulder steroid injection 11/25/23; Pt stated steroid helped a lot -Pt not seeking injections today just talk about next steps -Pt denies pain today -Pt is unaccompanied today Grace Cortes LPN documented in this encounter Plan of Treatment Upcoming Encounters Date Type Department Care Team (Late st Contact Info) Description 02/25/2024 2:15 PM EDT Office Visit Interventional Pain Center, [facility] [address] [place] [address] Tyrell Castro DO [address] [place] [phone] 02/27/2024 11:00 AM EDT Office Visit Family Practice [facility] [address] [place] [address] Joelle Meredith PA-C [address] [facility] [place] [address] 04/07/2024 9:40 AM EST Office Visit Dermatology [facility] [address] [place] [address] Nina Lawson PA-C [address] [facility] [place] [address] Scheduled Referrals Name Type Priority Associated Diagnoses Orde r Schedule PAIN MEDICINE REFERRAL OP Referral Within 24 hrs (call dept; emergent) Chronic left shoulder pain Ordered: 12/24/2023 Health Maintenance Due Date Last Done Comments Fecal Occult Blood Test 1994 Sigmoidoscopy 1994 Colonoscopy 03/04/2019 03/04/2009 DXA Scan 03/05/2023 03/05/2016 Depression Screening 08/23/2023 08/22/2022, 12/16/19 15 Albumin/Creatinine Ratio 09/01/2023 023, 08/15/2021, 07/28/2020, Additional history exists COVID-19 Vaccine (2022- season) 2023 05/15/2023, 03/08/2022, 05/16/2021, Additional history exists Diabetic Eye Exam 01/12/2024 01/11/2023, , 01/10/2021, Additional history exists Influenza Vaccine (FLU shot) (#1) 2024 02/26/2023, 02/22/2022, 02/22/2021, Additional history exists GFR 02/27/2024 08/27/2023, 09/2022, 08/31/2022, Additional history exists HbA1c 02/27/2024 08/27/2023, 1009/2022, 08/31/2022, Additional history exists B-12 03/06/2024 03/06/2023, 02/02, 02/22/2021, Additional history exists CKD HGB USE SMARTSET 27534 08/26/202408/264, 08/31/2022, 08/15/2021, Additional history exists Diabetic Foot Exam 08/26/2024 08/27/2023, 0 02/22/2022, 02/22/2021, Additional history exists CKD PHOS USE SMARTSET 20474 09/26/2024 04/2 11/2023, 08/27/2023, 03/06/2023, Additional history exists Cologuard 10/12/2024 10/12/2021, 05/0 09/2021, 10/04/2021 Colorectal Cancer Screening 10/12/2024 Mammogram 10/15/2024 10/16/2023, 09/02, 09/20/2022, Additional history exists Lipid Panel 08/26/2028 08/27/2023, 08/03, 08/15/2021, Additional history exists DTaP,Tdap,and Td Vaccines (3 - Td or Tdap) 02/27/2032 02/26/2022, 01/07/2012, 05/08/2006, Additional history exists *BASELINE EKG FOR HTN Completed 06/18/2012 Pneumococcal Vaccine: 65+ Years Completed 12/20/2015, 12/15/2014, 02/05/2007 Zoster Vaccines Completed 07/27/2019, 03/05/2019 HPV (Gardasil) Vaccine Aged Out No lo [...] as of this encounter Visit Diagnoses Diagnosis Chronic left shoulder pain- Primary Pain in joint, shoulder region Chronic right shoulder pain Pain in joint, shoulder region documented in this encounter Care Teams Business Database Analyst Relationship Specialty Start Date End Date Ellis Altamirano III, MD [address] [place] [address] PCP - General Family Medicine 07/23/18 documented as of this encounter
--- OUTSIDE RECORDS SUMMARY | 2024-02-05 03:03 | External Medical Summary | Summary of Care ---
Author Name Unknown Organization [facility] Address [address] [place] [address] Phone [phone] Care Team Providers Care Prom Burn Off Operator Name Role Phone Adarsh VALENTE MD, Ellis Davis Primary Care Provider [phone] Reason for Visit * Reason Comments Follow Up L SHOULDER Encounter Details Date Type Department Care Team (Latest Contact Info) Description 11/25/2023 11:30 AM EDT Office Visit Orthopaedics [facility] [address] [place] [address] Humberto Han MD [address] [place] [address] Chronic left shoulder pain*; Primary osteoarthritis of left shoulder; Chronic right shoulder pain Allergies Active Allergy Reactions Criticality Noted Date Comments Adhesive Tape 11/25/2008 sore sensitive skin Povidone 07/08/2009 documented as of this encounter (statuses as of 11/25/2023) Medications Medication Sig Dispensed Refills Start Date End Date Status Blood Glucose Monitoring Suppl (ONETOUCH ULTRA SYSTEM) W/DEVICE KIT Use up to four times a day as directed 1 Kit 12/19/2016 Active Aspirin 81 MG TabletIndications:Typ e 2 diabetes mellitus with hemoglobin A1c goal of less than 7.0% ([facility]) Take 1 Tab by mouth daily. 30 Tab 12/19/2016 Active Vitamin D 50 MCG (1999 UT) Oral Capsule Take 2,000 Units by mouth in the morning. Active OneTouch Ultra In Vitro Strip (Glucose Blood)Indications:Typ e 2 diabetes mellitus with hemoglobin A1c goal of less than 7.5% ([facility]) USE UP TO FOUR TIMES DAILY DIRECTED 400 Strip 2 03/16/2023 Active OneTouch Delica Lancets 30GIndications:Type 2 diabetes mellitus with stage 3 chronic kidney disease and hypertension ([facility]) USE TO CHECK GLUCOSE UP [...] diabetic peripheral angiopathy without gangrene, unspecified whether joint terminal attack controller insulin use (HCC) Take 1 Tablet by [...] the morning. 90 Tablet 2 08/27/2023 Active Hospital, Clinic, or Other Facility Administered Medication Ordered Dose Route Frequency Start Date End Date Status lidocaine 1% 1 mL - triamcinolone acetonide 40 mg/mL 1 mL inj 2 mLIndications:Chronic left shoulder pain,Primary osteoarthritis of left shoulder 2 mL IJ ONCE 11/25/2023 11/26/2023 Active documented as of this encounter (statuses as of 11/25/2023) Active Problems Problem Noted Date Diagnosed Date [...] without gangrene 12/19/2017 Elevated parathyroid hormone 12/21/2016 rodent exterminator current use of aromatase inhibitor HTN, goal below 140/90 08/08/2015 Overview: Per HTN Protocol #27. DYSLIPIDEMIA, GOAL LDL BELOW 100 05/12/2009 Overview: Per Lipid Taxonomy. History of malignant melanoma of skin 03/15/2009 Overview: History MELANOMA low lateral R neck: pT1a 0.53mm/172.5 Status post joint replacement 03/08/2008 ADVANCE DIRECTIVE INFORMATION 05/08/2006 Overview: No, Advance Directive brochure given to patient at prior appointment. LOC PRIM [id number] 12/11/2004 Generalized osteoarthritis documented as of this encounter (statuses as of 11/25/2023) Resolved Problems Problem Noted Date Diagnosed Date [...] as of this encounter (statuses as of 11/25/2023) Immunizations Name Administration Dates Next Due COVID-19 mRNA, LNP-s, No Pre serve, 2-Dose Series ([employer]) 05/16/2021,09/15/2020,08/25/2020 COVID-19, MRNA-LNP, 23-24, P F, 30 [...] Progress Notes * Humberto Han MD - 11/25/2023 11:41 AM EDT Chastity Su [id number] Chastity Su is a 72 year old female who presents for to [facility] for NEW evaluation of R shoulder pain and f/u of left shoulder injury/pain. I saw her originally for L shoulder pain on 09/19/2022 Most recent visit for L shoulder pain was on 10/07/2023 Chastity Su is here unaccompanied History: Level [...] today -Xray R shoulder today -Pt c/o 09/10 pain today in bilateral shoulder History on 10/07/2023 No change in symptoms, MRI was obtained and is described below Since that visit: f/u bilateral shoulder -MRI 09/30/23 L shoulder -steroid injection L shoulder 08/13/23; Pt had 2-3 days relief -Xray R shoulder 09/16/23 -PT: Pt stated she went to 8 visits and does not see any benefit -Pt is unaccompanied today She points laterally as the greatest pain generator. On occasion pain can radiate towards the [place] beyond. 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 However, She just attended 8 sessions of therapy and did not have improvement yet. He plans to continue going but is going to wait 7-10 days to return 2) Chronic R shoulder pain Suspect a component is from AC arthritis however the shoulder is currently not doing that bad. The left is much greatest concern for her. She will follow-up after MRI of the left shoulder Reports her right shoulder is doing okay. She does not desire any further treatments of it does have today 11/25/2023 Pt is Diabetic; A1C 6.5 on 08/27/23 Procedure note (shoulder subacromial bursa injection) on left: Time out: Prior to injection, a time out was called to confirm the administration of appropriate medicine, patient name, procedure and confirm to the best of our ability and knowledge the presence of any necessary risks and benefits. Patient verbalizes understanding. Posteriolateral approach used. Sterile techinique applied. Skin sterilized with chlorhexidine and cleaned with alcohol swab. Subacromial bursa injected using 1.5 inch, 25 gauge needle. Injected with Injected with 1 ml lidocaine 1%, triamcinolone acetonide 40mg/ml 1 ml. . Patient tolerated procedurewith no significant bleeding or adverse reaction. Patient instructed to call or return to clinic for fever or warmth and redness at injection site for potential infection. Patient also advised as to potential for steroid flare reaction including increased pain and redness at injection site which should be treated with ice and resolve within 24 hours. Humberto Han MD Primary Care Sports Medicine Orthopaedics [address] [address] documented in this encounter Nursing Notes * Valentina Pereira LPN - 11/25/2023 11:17 AM EDT -f/u bilateral shoulder -MRI 09/30/23 L shoulder -steroid injection L shoulder 08/13/23; Pt had 2-3 days relief -Xray R shoulder 09/16/23 -PT: Pt stated she went to 8 visits and does not see any benefit -Pt is unaccompanied today Grace Cortes LPN documented in this encounter Plan of Treatment Upcoming Encounters Date Type Department Care Team (Late st Contact Info) Description 12/24/2023 2:00 PM EDT Office Visit Orthopaedics [facility] [address] [place] [address] Humberto Han MD [address] [place] [address] 02/27/2024 11:00 AM EDT Office Visit Family Practice [facility] [address] [facility] [place] [address] Joelle Meredith PA-C [address] [facility] [place] [address] 04/07/2024 9:40 AM EST Office Visit Dermatology [facility] [address] [place] [address] Nina Lawson PA-C [address] [facility] [place] [address] Health Maintenance Due Date Last Done Comments Fecal Occult Blood Test 1994 Sigmoidoscopy 1994 Colonoscopy 03/04/2019 03/04/2009 DXA Scan 03/05/2023 03/05/2016 Depression Screening 08/23/2023 08/22/2022, 12/16/19 15 Albumin/Creatinine Ratio 09/01/2023 023, 08/15/2021, 07/28/2020, Additional history exists COVID-19 Vaccine ( season) 2023 05/15/2023, 03/08/2022, 05/16/2021, Additional history exists Diabetic Eye Exam 01/12/2024 01/11/2023, , 01/10/2021, Additional history exists GFR 02/27/2024 08/27/2023, 09/2022, 08/31/2022, Additional history exists HbA1c 02/27/2024 08/27/2023, 09/2022, 08/31/2022, Additional history exists B-12 03/06/2024 03/06/2023, 02/02, 02/22/2021, Additional history exists CKD HGB USE SMARTSET 48790 08/26/202408/26, 08/31/2022, 08/15/2021, Additional history exists Diabetic Foot Exam 08/26/2024 08/27/2023, 0 02/22/2022, 02/22/2021, Additional history exists CKD PHOS USE SMARTSET 53145 09/26/202409/02, 08/27/2023, 03/06/2023, Additional history exists Cologuard 10/12/2024 10/12/2021, 05/0 09/2021, 10/04/2021 Colorectal Cancer Screening 10/12/2024 Mammogram 10/15/2024 10/16/2023, 09/02, 09/20/2022, Additional history exists Lipid Panel 08/26/2028 08/27/2023, 08/03, 08/15/2021, Additional history exists DTaP,Tdap,and Td Vaccines (3 - Td or Tdap) 02/27/2032 02/26/2022, 01/07/2012, 05/08/2006, Additional history exists Pneumococcal Vaccine: 65+ Years Completed 12/20/2015, 12/15/2014, 02/05/2007 Zoster Vaccines Completed 07/27/2019, 03/05/2019 Influenza Vaccine (FLU shot) Completed , 02/22/2022, 02/22/2021, Additional history exists GARDASIL-HPV IMMUNIZATION SERIES Aged Out No longer eligible based on patient's age to complete this topic Hepatitis B Aged Out No longer eligi ble based on patient's age to complete this topic MENINGOCOCCAL (MENACTRA/MENVEO) Aged Out No longer eligible based on patient's age to complete this topic documented as of this encounter Medical Devices Not on filedocumented as of this encounter Visit Diagnoses Diagnosis Chronic left shoulder pain- Primary Pain in joint, shoulder region Primary osteoarthritis of left shoulder Primary localized osteoarthrosis, shoulder region Chronic right shoulder pain Pain in joint, shoulder region documented in this encounter Care Teams Prom Burn Off Operator Relationship Specialty Start Date End Date Ellis Altamirano III, MD [address] [place] [address] PCP - General Family Medicine 07/23/18 documented as of this encounter
--- OUTSIDE RECORDS SUMMARY | 2024-02-05 03:03 | External Medical Summary | Summary of Care ---
Author Name Unknown Organization [facility] Address [address] [place] [address] Phone [phone] Care Team Providers Care Fuller Brush Man Name Role Phone Adarsh VALENTE MD, Ellis Davis Primary Care Provider [phone] Encounter Details Date Type Department Care Team (Late st Contact Info) Description 12/11/2023 Patient Reported Data Patient Survey Ortho [facility] Allergies Active Allergy Reactions Criticality Noted Date Comments Adhesive Tape 11/25/2008 sore sensitive skin Povidone 07/08/2009 documented as of this encounter (statuses as of 12/11/2023) Medications Medication Sig Dispensed Refills Start Date End Date Status Blood Glucose Monitoring Suppl (ONETOUCH ULTRA SYSTEM) W/DEVICE KIT Use up to four times a day as directed 1 Kit 12/19/2016 Active Aspirin 81 MG TabletIndications:Typ e 2 diabetes mellitus with hemoglobin A1c goal of less than 7.0% ([facility]) Take 1 Tab by mouth daily. 30 Tab 12/19/2016 Active Vitamin D 50 MCG (2000 UT) Oral Capsule Take 2,000 Units by mouth in the morning. Active OneTouch Ultra In Vitro Strip (Glucose Blood)Indications:Typ e 2 diabetes mellitus with hemoglobin A1c goal of less than 7.5% ([facility]) USE UP TO FOUR TIMES DAILY DIRECTED 400 Strip 2 03/16/2023 Active OneTouch Delica Lancets 30GIndications:Type 2 diabetes mellitus with stage 3 chronic kidney disease and hypertension ([facility]) USE TO CHECK GLUCOSE UP [...] diabetic peripheral angiopathy without gangrene, unspecified whether spotlight operator insulin use (HCC) Take 1 Tablet by [...] as of this encounter (statuses as of 12/11/2023) Active Problems Problem Noted Date Diagnosed Date [...] without gangrene 12/19/2017 Elevated parathyroid hormone 12/21/2016 management development specialist current use of aromatase inhibitor HTN, goal below 140/90 08/08/2015 Overview: Per HTN Protocol #27. DYSLIPIDEMIA, GOAL LDL BELOW 100 05/12/2009 Overview: Per Lipid Taxonomy. History of malignant melanoma of skin 03/15/2009 Overview: History MELANOMA low lateral R neck: pT1a 0.53mm/172.5 Status post joint replacement 03/08/2008 ADVANCE DIRECTIVE INFORMATION 05/08/2006 Overview: No, Advance Directive brochure given to patient at prior appointment. LOC PRIM [id number] 12/11/2004 Generalized osteoarthritis documented as of this encounter (statuses as of 12/11/2023) Resolved Problems Problem Noted Date Diagnosed Date [...] as of this encounter (statuses as of 12/11/2023) Immunizations Name Administration Dates Next Due COVID-19 mRNA, LNP-s, No Pre serve, 2-Dose Series ([employer]) 05/16/2021,09/15/2020,08/25/2020 COVID-19, MRNA-LNP, 23-24, P F, 30 MCG/0.3 mL, 12 YRS AND ABOVE, IM ([facility]) 05/15/2023 Covid-19, Mrna, Lnp-s, Pf, B ivalent, 30 Mcg, IM, 12 yrs and above ([employer]) 03/08/2022 Pneumococcal Conjugate Vacc, 13 Valent (Prevnar) [...] 12/24/2023 2:00 PM EDT Office Visit Orthopaedics [facility] [address] [place] [place] [address] Humberto Han MD [address] [place] [place] [address] 02/27/2024 11:00 AM EDT Office Visit Family [facility] [address] [facility] [place] [address] Joelle Meredith PA-C [address] [place] [address] 04/07/2024 9:40 AM EST Office Visit Dermatology [facility] [address] [facility] [place] [address] Nina Lawson PA-C [address] [facility] [place] [address] Health Maintenance Due Date Last Done Comments [...] Additional history exists CKD HGB USE SMARTSET 55747 08/26/202408/26, 08/31/2022, 08/15/2021, Additional history exists Diabetic Foot Exam 08/26/2024 08/27/2023, 0 02/22/2022, 02/22/2021, Additional history exists CKD PHOS USE SMARTSET 53415 09/26/2024 04/2 11/2023, 08/27/2023, 03/06/2023, Additional history exists Cologuard 10/12/2024 10/12/2021, 05/0 09/2021, 10/04/2021 Colorectal Cancer Screening 10/12/2024 Mammogram 10/15/2024 10/16/2023, 2 09/2023, 09/20/2022, Additional history exists Lipid Panel 08/26/2028 [...] filedocumented as of this encounter Care Teams Fuller Brush Man Relationship Specialty Start Date End Date Ellis Altamirano III, MD [address] [place] [address] PCP - General Family Medicine 07/23/18 documented as of this encounter
--- OUTSIDE RECORDS SUMMARY | 2024-02-05 03:03 | External Medical Summary | Summary of Care ---
Author Name Unknown Organization [facility] Address [address] [place] [address] Phone [phone] Care Team Providers Care Zipper Ironer Name Role Phone Adarsh VALENTE MD, Ellis Davis Primary Care Provider [phone] Encounter Details Date Type Department Care Team [...] hemoglobin A1c goal of less than 7.5% ([facility]) USE UP TO FOUR TIMES DAILY DIRECTED 400 Strip 2 03/16/2023 Active OneTouch Delica Lancets 30GIndications:Type 2 diabetes mellitus with stage 3 chronic kidney disease and hypertension ([facility]) USE TO CHECK GLUCOSE UP TO 4 [...] peripheral angiopathy without gangrene, unspecified whether terminal operations manager insulin use (HCC) Take 1 Tablet [...] without gangrene 12/19/2017 Elevated parathyroid hormone 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 LOC PRIM [id number] 12/11/2004 Generalized osteoarthritis documented as of this [...] mRNA, LNP-s, No Pre serve, 2-Dose Series ([employer]) 05/16/2021,09/15/2020,08/25/2020 COVID-19, MRNA-LNP, 23-24, P F, 30 MCG/0.3 mL, 12 YRS AND ABOVE, IM ([facility]) 05/15/2023 Covid-19, Mrna, Lnp-s, Pf, B ivalent, 30 Mcg, IM, 12 yrs and above ([email or web address]) 03/08/2022 Pneumococcal Conjugate Vacc, 13 Valent (Prevnar) [...] 12/24/2023 2:00 PM EDT Office Visit Orthopaedics [facility] [address] [place] [address] Humberto Han MD [address] [place] [address] 02/27/2024 11:00 AM EDT Office Visit Family [facility] [address] [facility] [place] [address] Joelle Meredith PA-C [address] [place] [address] 04/07/2024 9:40 AM EST Office Visit Dermatology [facility] [address] [facility] [place] [address] Nina Lawson PA-C [address] [facility] [place] [address] Health Maintenance Due Date Last Done Comments [...] Additional history exists CKD HGB USE SMARTSET 86440 08/26/202408/26, 08/31/2022, 08/15/2021, Additional history exists Diabetic Foot Exam 08/26/2024 08/27/2023, 0 02/22/2022, 02/22/2021, Additional history exists CKD PHOS USE SMARTSET 82490 09/26/2024 04/2 11/2023, 08/27/2023, 03/06/2023, Additional history [...] filedocumented as of this encounter Care Teams Zipper Ironer Relationship Specialty Start Date End Date Ellis Altamirano III, MD [address] [place] [address] PCP - General Family Medicine 07/23/18 documented as of this encounter
--- OUTSIDE RECORDS SUMMARY | 2024-02-05 03:03 | External Medical Summary | Summary of Care ---
Author Name Unknown Organization [facility] Address [address] [place] [address] Phone [phone] Care Team Providers Care Physician General Practice Name Role Phone Adarsh VALENTE MD, Ellis Davis Primary Care Provider [phone] Encounter Details Date Type Department Care Team [...] goal of less than 7.5% ([facility]) USE UP TO FOUR TIMES DAILY DIRECTED 400 Strip 2 03/16/2023 Active OneTouch Delica Lancets 30GIndications:Type 2 diabetes mellitus with stage 3 chronic kidney disease and hypertension ([facility]) USE TO CHECK GLUCOSE UP TO 4 [...] without gangrene 12/19/2017 Elevated parathyroid hormone 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 LOC PRIM [id number] 12/11/2004 Generalized osteoarthritis documented as of this [...] mRNA, LNP-s, No Pre serve, 2-Dose Series ([employer]) 05/16/2021,09/15/2020,08/25/2020 COVID-19, MRNA-LNP, 23-24, P F, 30 MCG/0.3 mL, 12 YRS AND ABOVE, IM ([facility]) 05/15/2023 Covid-19, Mrna, Lnp-s, Pf, B ivalent, 30 Mcg, IM, 12 yrs and above ([employer]) 03/08/2022 Pneumococcal Conjugate Vacc, 13 Valent (Prevnar) [...] 12/24/2023 2:00 PM EDT Office Visit Orthopaedics [facility] [address] [address] Humberto Han MD [address] [place] [address] 02/27/2024 11:00 AM EDT Office Visit Family [facility] [address] [facility] [place] [address] Joelle Meredith PA-C [address] [place] [address] 04/07/2024 9:40 AM EST Office Visit Dermatology [facility] [address] [facility] [place] [address] Nina Lawson PA-C [address] [facility] [place] [address] Health Maintenance Due Date Last Done Comments [...] Additional history exists CKD HGB USE SMARTSET 96858 08/26/202408/26, 08/31/2022, 08/15/2021, Additional history exists Diabetic Foot Exam 08/26/2024 08/27/2023, 0 02/22/2022, 02/22/2021, Additional history exists CKD PHOS USE SMARTSET 34195 09/26/2024 04/2 11/2023, 08/27/2023, 03/06/2023, Additional history [...] filedocumented as of this encounter Care Teams Physician General Practice Relationship Specialty Start Date End Date Ellis Altamirano III, MD [address] [place] [address] PCP - General Family Medicine 07/23/18 documented as of this encounter
--- OUTSIDE RECORDS SUMMARY | 2024-02-05 03:03 | External Medical Summary | Summary of Care ---
Author Name Unknown Organization [facility] Address [address] [place] [address] Phone [phone] Care Team Providers Care Community Service Director Name Role Phone Adarsh VALENTE MD, Ellis Davis Primary Care Provider [phone] Reason for Visit * Reason Comments Follow Up L SHOULDER Encounter Details Date Type Department Care Team (Latest Contact Info) Description 11/25/2023 11:30 AM EDT Office Visit Orthopaedics [facility] [address] [place] [address] Humberto Han MD [address] [place] [address] Chronic left shoulder pain*; Primary osteoarthritis of [...] diabetic peripheral angiopathy without gangrene, unspecified whether ocean transportation intermediary insulin use (HCC) Take 1 Tablet by [...] left shoulder 2 mL IJ ONCE 11/25/2023 11/25/2023 Ended documented as of this encounter (statuses [...] gangrene 12/19/2017 Elevated parathyroid hormone 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 DYSLIPIDEMIA, GOAL LDL BELOW 100 05/12/2009 Overview: Per Lipid Taxonomy. History of malignant melanoma of skin 03/15/2009 Overview: History MELANOMA low lateral R neck: pT1a 0.53mm/172.5 Status post joint replacement 03/08/2008 ADVANCE DIRECTIVE INFORMATION 05/08/2006 Overview: No, Advance Directive brochure given to patient at prior appointment. LOC PRIM [id number] 12/11/2004 Generalized osteoarthritis documented as of this [...] mRNA, LNP-s, No Pre serve, 2-Dose Series ([employer]) 05/16/2021,09/15/2020,08/25/2020 COVID-19, MRNA-LNP, 23-24, P F, 30 [...] - 11/25/2023 11:41 AM EDT Chastity Su [id number] Chatsity Su is a 72 year old female who presents for to [facility] Orthopa[facility] and Sports Medicine for NEW evaluation [...] goal below 140/90 Malignant melanoma of trunk ([facility]) Right neck Mixed dyslipidemia Morbid obesity, BMI not known ([facility]) Undiagnosed cardiac murmurs PVC's Varicella without complication [...] on file Occupational History Occupation: clerical/bookkeeping Employer: [employer] Tobacco Use Smoking status: Never Smokeless [...] Han MD Primary Care Sports Medicine Orthopaedics [place] [address] documented in this encounter Nursing Notes * [...] 12/24/2023 2:00 PM EDT Office Visit Orthopaedics [facility] [address] [place] [address] Humberto Han MD [address] [place] [address] 02/27/2024 11:00 AM EDT Office Visit Family Practice [facility] [address] [facility] [place] [address] Joelle Meredith PA-C [address] [facility] [place] [address] 04/07/2024 9:40 AM EST Office Visit Dermatology [facility] [address] [facility] [place] [address] Nina Lawson PA-C [address] [facility] [place] [place] [address] Health Maintenance Due Date Last Done Comments [...] Additional history exists CKD HGB USE SMARTSET 71681 08/26/202408/26, 08/31/2022, 08/15/2021, Additional history exists Diabetic Foot Exam 08/26/2024 08/27/2023, 0 02/22/2022, 02/22/2021, Additional history exists CKD PHOS USE SMARTSET 81067 09/26/202409/02, 08/27/2023, 03/06/2023, Additional history exists Cologuard [...] joint, shoulder region documented in this encounter Administered Medications Inactive Administered Medications - up to 3 most recent administrations Medication Order MAR Action Action Date Dose Rate Site lidocaine 1% 1 mL - triamcinolone acetonide 40 mg/mL 1 mL inj 2 mL 2 mL, Injection, ONCE, On 11/25/23 at 1300, For 1 dose, Lidocaine 1% 1mL Triamcinolone Acetonide 40 mg/mL 1 mL (Final concentration = 20 mg/mL) REFRIGERATE and SHAKE WELL Given 11/25/2023 12:35 PM EDT 2 mL Shoulder Left documented in this encounter Care Teams Community Service Director Relationship Specialty Start Date End Date Ellis Altamirano III, MD [address] [place] [address] PCP - General Family Medicine 07/23/18 documented as of this encounter
--- OUTSIDE RECORDS SUMMARY | 2024-02-05 03:03 | External Medical Summary | Summary of Care ---
Author Name Unknown Organization [facility] Address [address] [place] [address] Phone [phone] Care Team Providers Care Outreach Associate Name Role Phone Adarsh VALENTE MD, Ellis Davis Primary Care Provider [phone] Encounter Details Date Type Department Care Team [...] hemoglobin A1c goal of less than 7.0% ([facility]) Take 1 Tab by mouth daily. 30 Tab 12/19/2016 Active Vitamin D 50 MCG (2000 UT) Oral Capsule Take 2,000 Units by mouth in the morning. Active OneTouch Ultra In Vitro Strip (Glucose Blood)Indications:Typ e 2 diabetes mellitus with hemoglobin A1c goal of less than 7.5% ([facility]) USE UP TO FOUR TIMES DAILY DIRECTED 400 Strip 2 03/16/2023 Active OneTouch Delica Lancets 30GIndications:Type 2 diabetes mellitus with stage 3 chronic kidney disease and hypertension ([facility]) USE TO CHECK GLUCOSE UP [...] diabetic peripheral angiopathy without gangrene, unspecified whether dedicated intermodal truck driver insulin use (HCC) Take 1 Tablet by [...] without gangrene 12/19/2017 Elevated parathyroid hormone 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 DYSLIPIDEMIA, GOAL LDL BELOW 100 05/12/2009 Overview: Per Lipid Taxonomy. History of malignant melanoma of skin 03/15/2009 Overview: History MELANOMA low lateral R neck: pT1a 0.53mm/172.5 Status post joint replacement 03/08/2008 ADVANCE DIRECTIVE INFORMATION 05/08/2006 Overview: No, Advance Directive brochure given to patient at prior appointment. LOC PRIM [id number] 12/11/2004 Generalized osteoarthritis documented as of this [...] mRNA, LNP-s, No Pre serve, 2-Dose Series ([employer]) 05/16/2021,09/15/2020,08/25/2020 COVID-19, MRNA-LNP, 23-24, P F, 30 MCG/0.3 mL, 12 YRS AND ABOVE, IM ([facility] 05/15/2023 Covid-19, Mrna, Lnp-s, Pf, B ivalent, 30 Mcg, IM, 12 yrs and above ([employer]) 03/08/2022 Pneumococcal Conjugate Vacc, 13 Valent (Prevnar) [...] 2:00 PM EDT Office Visit Orthopaedics [facility] [address] [address] Humberto Han MD [address] [address] 02/27/2024 11:00 AM EDT Office Visit Family [facility] [address] [facility] [place] [address] Joelle Meredith PA-C [address] [place] [address] 04/07/2024 9:40 AM EST Office Visit Dermatology [facility] [address] [facility] [place] [address] Nina Lawson PA-C [address] [facility] [place] [address] Health Maintenance Due Date Last Done Comments [...] Additional history exists CKD HGB USE SMARTSET 67917 08/26/202408/26, 08/31/2022, 08/15/2021, Additional history exists Diabetic Foot Exam 08/26/2024 08/27/2023, 0 02/22/2022, 02/22/2021, Additional history exists CKD PHOS USE SMARTSET 88370 09/26/2024 04/2 11/2023, 08/27/2023, 03/06/2023, Additional history [...] filedocumented as of this encounter Care Teams Outreach Associate Relationship Specialty Start Date End Date Ellis Altamirano III, MD [address] [place] [address] PCP - General Family Medicine 07/23/18 documented as of this encounter
--- OUTSIDE RECORDS SUMMARY | 2024-02-05 03:03 | External Medical Summary | Summary of Care ---
Author Name Unknown Organization [facility] Address [address] [place] [address] Phone [phone] Care Team Providers Care Numerical Control Nesting Operator Name Role Phone Adarsh VALENTE MD, Ellis Davis Primary Care Provider [phone] Encounter Details Date Type Department Care Team [...] A1c goal of less than 7.0% ([facility]) Take 1 Tab by mouth daily. 30 Tab 12/19/2016 Active Vitamin D 50 MCG (2000 UT) Oral Capsule Take 2,000 Units by mouth in the morning. Active OneTouch Ultra In Vitro Strip (Glucose Blood)Indications:Typ e 2 diabetes mellitus with hemoglobin A1c goal of less than 7.5% ([facility]) USE UP TO FOUR TIMES DAILY DIRECTED 400 Strip 2 03/16/2023 Active OneTouch Delica Lancets 30GIndications:Type 2 diabetes mellitus with stage 3 chronic kidney disease and hypertension ([facility]) USE TO CHECK GLUCOSE UP [...] diabetic peripheral angiopathy without gangrene, unspecified whether longwall foreman insulin use (HCC) Take 1 Tablet by [...] without gangrene 12/19/2017 Elevated parathyroid hormone 12/21/2016 manager long term care current use of aromatase inhibitor HTN, goal below 140/90 08/08/2015 Overview: Per HTN Protocol #27. DYSLIPIDEMIA, GOAL LDL BELOW 100 05/12/2009 Overview: Per Lipid Taxonomy. History of malignant melanoma of skin 03/15/2009 Overview: History MELANOMA low lateral R neck: pT1a 0.53mm/172.5 Status post joint replacement 03/08/2008 ADVANCE DIRECTIVE INFORMATION 05/08/2006 Overview: No, Advance Directive brochure given to patient at prior appointment. LOC PRIM [id number] 12/11/2004 Generalized osteoarthritis documented as of this [...] mRNA, LNP-s, No Pre serve, 2-Dose Series ([employer]) 05/16/2021,09/15/2020,08/25/2020 COVID-19, MRNA-LNP, 23-24, P F, 30 MCG/0.3 mL, 12 YRS AND ABOVE, IM ([facility] 05/15/2023 Covid-19, Mrna, Lnp-s, Pf, B ivalent, 30 Mcg, IM, 12 yrs and above ([employer]) 03/08/2022 Pneumococcal Conjugate Vacc, 13 Valent (Prevnar) [...] 12/24/2023 2:00 PM EDT Office Visit Orthopaedics [facility] [address] [address] Humberto Han MD [address] [address] 02/27/2024 11:00 AM EDT Office Visit Family [facility] [address] [facility] [place] [address] Joelle Meredith PA-C [address] [place] [address] 04/07/2024 9:40 AM EST Office Visit Dermatology [facility] [address] [facility] [place] [address] Nina Lawson PA-C [address] [facility] [place] [address] Health Maintenance Due Date Last Done Comments [...] Additional history exists CKD HGB USE SMARTSET 31465 08/26/202408/26, 08/31/2022, 08/15/2021, Additional history exists Diabetic Foot Exam 08/26/2024 08/27/2023, 0 02/22/2022, 02/22/2021, Additional history exists CKD PHOS USE SMARTSET 49181 09/26/2024 04/2 11/2023, 08/27/2023, 03/06/2023, Additional history [...] filedocumented as of this encounter Care Teams Numerical Control Nesting Operator Relationship Specialty Start Date End Date Ellis Altamirano III, MD [address] [place] [address] PCP - General Family Medicine 07/23/18 documented as of this encounter
--- OUTSIDE RECORDS SUMMARY | 2024-02-05 03:03 | External Medical Summary | Summary of Care ---
Author Name Unknown Organization [facility] Address [address] [place] [address] Phone [phone] Care Team Providers Care Public Service Director Name Role Phone Adarsh VALENTE MD, Ellis Davis Primary Care Provider [phone] Reason for Visit * Reason Comments Follow Up L SHOULDER Encounter Details Date Type Department Care Team (Latest Contact Info) Description 11/25/2023 11:30 AM EDT Office Visit Orthopaedics [facility] [address] [place] [address] Humberto Han MD [address] [place] [address] Chronic left shoulder pain*; Primary osteoarthritis of [...] hemoglobin A1c goal of less than 7.0% ([facility]) Take 1 Tab by mouth daily. 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 DYSLIPIDEMIA, GOAL LDL BELOW 100 05/12/2009 Overview: Per Lipid Taxonomy. History of malignant melanoma of skin 03/15/2009 Overview: History MELANOMA low lateral R neck: pT1a 0.53mm/172.5 Status post joint replacement 03/08/2008 ADVANCE DIRECTIVE INFORMATION 05/08/2006 Overview: No, Advance Directive brochure given to patient at prior appointment. LOC PRIM [id number] 12/11/2004 Generalized osteoarthritis documented as of this [...] mRNA, LNP-s, No Pre serve, 2-Dose Series ([employer]) 05/16/2021,09/15/2020,08/25/2020 COVID-19, MRNA-LNP, 23-24, P F, 30 [...] - 11/25/2023 11:41 AM EDT Chastity Su [id number] Chastity Su is a 72 year old female who presents for to [facility] for NEW evaluation [...] goal below 140/90 Malignant melanoma of trunk ([facility]) Right neck Mixed dyslipidemia Morbid obesity, BMI not known ([facility]) Undiagnosed cardiac murmurs PVC's Varicella without complication [...] on file Occupational History Occupation: clerical/bookkeeping Employer: [employer] Tobacco Use Smoking status: Never Smokeless [...] desire any further treatments as of today 11/25/2023 Pt is Diabetic; A1C 6.5 [...] Han MD Primary Care Sports Medicine Orthopaedics [place] [address] documented in this encounter Nursing Notes * [...] Encounters Date Type Department Care Team (Late Contact Info) Description 12/24/2023 2:00 PM EDT Office Visit Orthopaedics [facility] [address] [place] [address] Humberto Han MD [address] [place] [address] Chastity Su 02/27/2024 11:00 AM EDT Office Visit Family Practice [facility] [address] [facility] [place] [address] Joelle Meredith PA-C [address] [facility] [place] [address] 04/07/2024 9:40 AM EST Office Visit Dermatology [facility] [address] [facility] [place] [address] Nina Lawson PA-C [address] [facility] [place] [address] Health Maintenance Due Date Last Done Comments [...] Additional history exists CKD HGB USE SMARTSET 91349 08/26/202408/26, 08/31/2022, 08/15/2021, Additional history exists Diabetic Foot Exam 08/26/2024 08/27/2023, 0 02/22/2022, 02/22/2021, Additional history exists CKD PHOS USE SMARTSET 71086 09/26/202409/02, 08/27/2023, 03/06/2023, Additional history exists Cologuard [...] Left documented in this encounter Care Teams Public Service Director Relationship Specialty Start Date End Date Ellis Altamirano III, MD [address] [place] [address] PCP - General Family Medicine 07/23/18 documented as of this encounter
--- OUTSIDE RECORDS SUMMARY | 2024-02-05 03:03 | External Medical Summary | Summary of Care ---
Author Name Unknown Organization [facility] Address [address] [place] [address] Phone [phone] Care Team Providers Care Zipper Ironer Name Role Phone Adarsh VALENTE MD, Ellis Davis Primary Care Provider [phone] Encounter Details Date Type Department Care Team [...] A1c goal of less than 7.0% ([facility]) Take 1 Tab by mouth daily. 30 Tab 12/19/2016 Active Vitamin D 50 MCG (2000 UT) Oral Capsule Take 2,000 Units by mouth in the morning. Active OneTouch Ultra In Vitro Strip (Glucose Blood)Indications:Typ e 2 diabetes mellitus with hemoglobin A1c goal of less than 7.5% ([facility]) USE UP TO FOUR TIMES DAILY DIRECTED 400 Strip 2 03/16/2023 Active OneTouch Delica Lancets 30GIndications:Type 2 diabetes mellitus with stage 3 chronic kidney disease and hypertension ([facility]) USE TO CHECK GLUCOSE UP TO 4 [...] diabetic peripheral angiopathy without gangrene, unspecified whether intermission coordinator insulin use (HCC) Take 1 Tablet by [...] gangrene 12/19/2017 Elevated parathyroid hormone 12/21/2016 manager intermediate current use of aromatase inhibitor HTN, goal below 140/90 08/08/2015 Overview: Per HTN Protocol #27. DYSLIPIDEMIA, GOAL LDL BELOW 100 05/12/2009 Overview: Per Lipid Taxonomy. History of malignant melanoma of skin 03/15/2009 Overview: History MELANOMA low lateral R neck: pT1a 0.53mm/172.5 Status post joint replacement 03/08/2008 ADVANCE DIRECTIVE INFORMATION 05/08/2006 Overview: No, Advance Directive brochure given to patient at prior appointment. LOC PRIM [id number] 12/11/2004 Generalized osteoarthritis documented as of this [...] mRNA, LNP-s, No Pre serve, 2-Dose Series ([employer]) 05/16/2021,09/15/2020,08/25/2020 COVID-19, MRNA-LNP, 23-24, P F, 30 MCG/0.3 mL, 12 YRS AND ABOVE, IM ([facility] 05/15/2023 Covid-19, Mrna, Lnp-s, Pf, B ivalent, 30 Mcg, IM, 12 yrs and above ([employer]) 03/08/2022 Pneumococcal Conjugate Vacc, 13 Valent (Prevnar) [...] 12/24/2023 2:00 PM EDT Office Visit Orthopaedics [facility] [address] [address] Humberto Han MD [address] [address] 02/27/2024 11:00 AM EDT Office Visit Family [facility] [address] [facility] [place] [place] [address] Joelle Meredith PA-C [address] [place] [address] 04/07/2024 9:40 AM EST Office Visit Dermatology [facility] [address] [facility] [place] [address] Nina Lawson PA-C [address] [facility] [place] [place] [address] Health Maintenance Due Date Last Done Comments [...] Additional history exists CKD HGB USE SMARTSET 07996 08/26/202408/26, 08/31/2022, 08/15/2021, Additional history exists Diabetic Foot Exam 08/26/2024 08/27/2023, 0 02/22/2022, 02/22/2021, Additional history exists CKD PHOS USE SMARTSET 71956 09/26/2024 04/2 11/2023, 08/27/2023, 03/06/2023, Additional history [...] Ellis Altamirano III, MD [address] [place] [address] PCP - General Family Medicine 07/23/18 documented as of this encounter
--- OUTSIDE RECORDS SUMMARY | 2024-02-05 03:04 | External Medical Summary | Summary of Care ---
Author Name Unknown Organization [facility] Address [address] [place] [address] Phone [phone] Care Team Providers Care Steel Floor Pan Placing Supervisor Name Role Phone Adarsh VALENTE MD, Ellis Davis Primary Care Provider [phone] Encounter Details Date Type Department Care Team (Late st Contact Info) Description 11/11/2023 Patient Reported Data Patient Survey Ortho [facility]BERD Allergies Active Allergy Reactions Criticality Noted Date Comments Adhesive Tape 11/25/2008 sore sensitive skin Povidone 07/08/2009 documented as of this encounter (statuses as of 11/11/2023) Medications Medication Sig Dispensed Refills Start Date End Date Status Blood Glucose Monitoring Suppl ([employer]) W/DEVICE KIT Use up to four times a day as directed 1 Kit 12/19/2016 Active Aspirin 81 MG TabletIndications:Typ e 2 diabetes mellitus with hemoglobin A1c goal of less than 7.0% ([facility]) Take 1 Tab by mouth daily. 30 Tab 12/19/2016 Active Vitamin D 50 MCG (2000 UT) Oral Capsule Take 2,000 Units by mouth in the morning. Active OneTouch Ultra In Vitro Strip (Glucose Blood)Indications:Typ e 2 diabetes mellitus with hemoglobin A1c goal of less than 7.5% ([facility]) USE UP TO FOUR TIMES DAILY DIRECTED 400 Strip 2 03/16/2023 Active OneTouch Delica Lancets 30GIndications:Type 2 diabetes mellitus with stage 3 chronic kidney disease and hypertension ([facility]) USE TO CHECK GLUCOSE UP [...] diabetic peripheral angiopathy without gangrene, unspecified whether it security administrator insulin use (HCC) Take 1 Tablet by [...] as of this encounter (statuses as of 11/11/2023) Active Problems Problem Noted Date Diagnosed Date [...] without gangrene 12/19/2017 Elevated parathyroid hormone 12/21/2016 vmware administrator current use of aromatase inhibitor HTN, goal below 140/90 08/08/2015 Overview: Per HTN Protocol #27. DYSLIPIDEMIA, GOAL LDL BELOW 100 05/12/2009 Overview: Per Lipid Taxonomy. History of malignant melanoma of skin 03/15/2009 Overview: History MELANOMA low lateral R neck: pT1a 0.53mm/172.5 Status post joint replacement 03/08/2008 ADVANCE DIRECTIVE INFORMATION 05/08/2006 Overview: No, Advance Directive brochure given to patient at prior appointment. LOC PRIM [id number] 12/11/2004 Generalized osteoarthritis documented as of this encounter (statuses as of 11/11/2023) Resolved Problems Problem Noted Date Diagnosed Date [...] as of this encounter (statuses as of 11/11/2023) Immunizations Name Administration Dates Next Due COVID-19 mRNA, LNP-s, No Pre serve, 2-Dose Series ([employer]) 05/16/2021,09/15/2020,08/25/2020 COVID-19, MRNA-LNP, 23-24, P F, 30 MCG/0.3 mL, 12 YRS AND ABOVE, IM ([facility] 05/15/2023 Covid-19, Mrna, Lnp-s, Pf, B ivalent, 30 Mcg, IM, 12 yrs and above ([employer]) 03/08/2022 Pneumococcal Conjugate Vacc, 13 Valent (Prevnar) [...] Recorded PHQ Adult Total Score 0 08/22/2022 Sex and Gender Information Value Date Recorded [...] Care Team (Late st Contact Info) Description 11/25/2023 11:30 AM EDT Office [facility] [address] [facility] [address] [place] [address] Humberto Han MD [address] [place] [address] 02/27/2024 11:00 AM EDT Office Visit Family Practice [facility] [address] [place] [address] Joelle Meredith PA-C [address] [place] [address] 04/07/2024 9:40 AM EST Office Visit Dermatology [facility] [address] [place] [address] Nina Lawson PA-C [address] [facility] [place] [address] Health Maintenance Due Date Last Done Comments Fecal Occult Blood Test 1994 Sigmoidoscopy 1994 Colonoscopy 03/04/2019 03/04/2009 DXA Scan 03/05/2023 03/05/2016 Depression Screening 08/23/2023 08/22/2022, 12/16/19 15 Albumin/Creatinine Ratio 09/01/2023 023, 08/15/2021, 07/28/2020, Additional history exists COVID-19 Vaccine ( season) 2023 05/15/2023, 03/08/2022, 05/16/2021, Additional history exists Diabetic Eye Exam 01/12/2024 01/11/2023, , 01/10/2021, Additional history exists GFR 02/27/2024 08/27/2023, 100 09/2022, 08/31/2022, Additional history exists HbA1c 02/27/2024 08/27/2023, 100 09/2022, 08/31/2022, Additional history exists B-12 03/06/2024 03/06/2023, 02/02, 02/22/2021, Additional history exists CKD HGB USE SMARTSET 76282 08/26/202408/26, 08/31/2022, 08/15/2021, Additional history exists Diabetic Foot Exam 08/26/2024 08/27/2023, 0 02/22/2022, 02/22/2021, Additional history exists CKD PHOS USE SMARTSET 21474 09/26/202409/02, 08/27/2023, 03/06/2023, Additional history exists Cologuard [...] filedocumented as of this encounter Care Teams Steel Floor Pan Placing Supervisor Relationship Specialty Start Date End Date Ellis Altamirano III, MD [address] [facility] [place] [address] PCP - General Family Medicine 07/23/18 documented as of this encounter
--- OUTSIDE RECORDS SUMMARY | 2024-02-05 03:04 | External Medical Summary | Summary of Care ---
Author Name Unknown Organization [facility] Address [address] [place] [address] Phone [phone] Care Team Providers Care Hardware Engineer Name Role Phone Adarsh VALENTE MD, Ellis Davis Primary Care Provider [phone] Encounter Details Date Type Department Care Team [...] goal of less than 7.0% ([facility]) Take 1 Tab by mouth daily. 30 Tab 12/19/2016 Active Vitamin D 50 MCG (2000 UT) Oral Capsule Take 2,000 Units by mouth in the morning. Active OneTouch Ultra In Vitro Strip (Glucose Blood)Indications:Typ e 2 diabetes mellitus with hemoglobin A1c goal of less than 7.5% ([facility]) USE UP TO FOUR TIMES DAILY DIRECTED 400 Strip 2 03/16/2023 Active OneTouch Delica Lancets 30GIndications:Type 2 diabetes mellitus with stage 3 chronic kidney disease and hypertension ([facility]) USE TO CHECK GLUCOSE UP TO 4 [...] diabetic peripheral angiopathy without gangrene, unspecified whether long chain quiller tender insulin use (HCC) Take 1 Tablet by [...] without gangrene 12/19/2017 Elevated parathyroid hormone 12/21/2016 human projectile current use of aromatase inhibitor HTN, goal below 140/90 08/08/2015 Overview: Per HTN Protocol #27. DYSLIPIDEMIA, GOAL LDL BELOW 100 05/12/2009 Overview: Per Lipid Taxonomy. History of malignant melanoma of skin 03/15/2009 Overview: History MELANOMA low lateral R neck: pT1a 0.53mm/172.5 Status post joint replacement 03/08/2008 ADVANCE DIRECTIVE INFORMATION 05/08/2006 Overview: No, Advance Directive brochure given to patient at prior appointment. LOC PRIM [id number] 12/11/2004 Generalized osteoarthritis documented as of this [...] mRNA, LNP-s, No Pre serve, 2-Dose Series ([employer]) 05/16/2021,09/15/2020,08/25/2020 COVID-19, MRNA-LNP, 23-24, P F, 30 MCG/0.3 mL, 12 YRS AND ABOVE, IM ([facility] 05/15/2023 Covid-19, Mrna, Lnp-s, Pf, B ivalent, 30 Mcg, IM, 12 yrs and above ([employer]) 03/08/2022 Pneumococcal Conjugate Vacc, 13 Valent (Prevnar) [...] 11/25/2023 11:30 AM EDT Office [facility] [place] [place] [address] Humberto Han MD [address] [place] [address] 02/27/2024 11:00 AM EDT Office Visit Family Practice [facility] [address] [place] [address] Joelle Meredith PA-C [address] [place] [address] 04/07/2024 9:40 AM EST Office Visit Dermatology [facility] [address] [place] [address] Nina Lawson PA-C [address] [facility] [place] [address] Health Maintenance Due Date Last Done Comments [...] Additional history exists CKD HGB USE SMARTSET 37881 08/26/202408/26, 08/31/2022, 08/15/2021, Additional history exists Diabetic Foot Exam 08/26/2024 08/27/2023, 0 02/22/2022, 02/22/2021, Additional history exists CKD PHOS USE SMARTSET 33908 09/26/202409/02, 08/27/2023, 03/06/2023, Additional history exists Cologuard [...] filedocumented as of this encounter Care Teams Hardware Engineer Relationship Specialty Start Date End Date Ellis Altamirano III, MD [address] [facility] [place] [address] PCP - General Family Medicine 07/23/18 documented as of this encounter
--- OUTSIDE RECORDS SUMMARY | 2024-02-05 03:04 | External Medical Summary | Summary of Care ---
Author Name Unknown Organization [facility] Address [address] [place] [address] Phone [phone] Care Team Providers Care Residential Solar Sales Consultant Name Role Phone Adarsh VALENTE MD, Ellis Davis Primary Care Provider [phone] Encounter Details Date Type Department Care Team [...] goal of less than 7.0% ([facility]) Take 1 Tab by mouth daily. 30 Tab 12/19/2016 Active Vitamin D 50 MCG (2000 UT) Oral Capsule Take 2,000 Units by mouth in the morning. 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 DYSLIPIDEMIA, GOAL LDL BELOW 100 05/12/2009 Overview: Per Lipid Taxonomy. History of malignant melanoma of skin 03/15/2009 Overview: History MELANOMA low lateral R neck: pT1a 0.53mm/172.5 Status post joint replacement 03/08/2008 ADVANCE DIRECTIVE INFORMATION 05/08/2006 Overview: No, Advance Directive brochure given to patient at prior appointment. LOC PRIM [id number] 12/11/2004 Generalized osteoarthritis documented as of this [...] mRNA, LNP-s, No Pre serve, 2-Dose Series ([employer]) 05/16/2021,09/15/2020,08/25/2020 COVID-19, MRNA-LNP, 23-24, P F, 30 MCG/0.3 mL, 12 YRS AND ABOVE, IM ([facility]) 05/15/2023 Covid-19, Mrna, Lnp-s, Pf, B ivalent, 30 Mcg, IM, 12 yrs and above ([employer]) 03/08/2022 Pneumococcal Conjugate Vacc, 13 Valent (Prevnar) [...] 11/25/2023 11:30 AM EDT Office [facility] [address] [facility] [facility] [place] [address] Humberto Han MD [address] [place] [address] 02/27/2024 11:00 AM EDT Office Visit Family Practice [facility] [address] [place] [address] oJelle Meredith PA-C [address] [place] [address] 04/07/2024 9:40 AM EST Office Visit Dermatology [facility] [address] [place] [address] Nina Lawson PA-C [address] [facility] [place] [address] Health Maintenance Due Date Last Done Comments [...] Additional history exists CKD HGB USE SMARTSET 64625 08/26/202408/26, 08/31/2022, 08/15/2021, Additional history exists Diabetic Foot Exam 08/26/2024 08/27/2023, 0 02/22/2022, 02/22/2021, Additional history exists CKD PHOS USE SMARTSET 02178 09/26/202409/02, 08/27/2023, 03/06/2023, Additional history exists Cologuard [...] filedocumented as of this encounter Care Teams Residential Solar Sales Consultant Relationship Specialty Start Date End Date Ellis Altamirano III, MD [address] [place] [address] PCP - General Family Medicine 07/23/18 documented as of this encounter
--- OUTSIDE RECORDS SUMMARY | 2024-02-05 03:04 | External Medical Summary | Summary of Care ---
Author Name Unknown Organization [facility] Address [address] [place] [address] Phone [phone] Care Team Providers Care Staffing Account Manager Name Role Phone Adarsh VALENTE MD, Ellis Davis Primary Care Provider [phone] Encounter Details Date Type Department Care Team [...] goal of less than 7.0% ([facility]) Take 1 Tab by mouth daily. 30 Tab 12/19/2016 Active Vitamin D 50 MCG (2000 UT) Oral Capsule Take 2,000 Units by mouth in the morning. Active OneTouch Ultra In Vitro Strip (Glucose Blood)Indications:Typ e 2 diabetes mellitus with hemoglobin A1c goal of less than 7.5% ([facility]) USE UP TO FOUR TIMES DAILY DIRECTED 400 Strip 2 03/16/2023 Active OneTouch Delica Lancets 30GIndications:Type 2 diabetes mellitus with stage 3 chronic kidney disease and hypertension ([facility]) USE TO CHECK GLUCOSE UP TO [...] diabetic peripheral angiopathy without gangrene, unspecified whether termite control representative insulin use (HCC) Take 1 Tablet by [...] without gangrene 12/19/2017 Elevated parathyroid hormone 12/21/2016 intermission coordinator current use of aromatase inhibitor HTN, goal below 140/90 08/08/2015 Overview: Per HTN Protocol #27. DYSLIPIDEMIA, GOAL LDL BELOW 100 05/12/2009 Overview: Per Lipid Taxonomy. History of malignant melanoma of skin 03/15/2009 Overview: History MELANOMA low lateral R neck: pT1a 0.53mm/172.5 Status post joint replacement 03/08/2008 ADVANCE DIRECTIVE INFORMATION 05/08/2006 Overview: No, Advance Directive brochure given to patient at prior appointment. LOC PRIM [id number] 12/11/2004 Generalized osteoarthritis documented as of this [...] mRNA, LNP-s, No Pre serve, 2-Dose Series ([employer]) 05/16/2021,09/15/2020,08/25/2020 COVID-19, MRNA-LNP, 23-24, P F, 30 MCG/0.3 mL, 12 YRS AND ABOVE, IM ([employer] 05/15/2023 Covid-19, Mrna, Lnp-s, Pf, B ivalent, 30 Mcg, IM, 12 yrs and above (Numerate) 03/08/2022 Pneumococcal Conjugate Vacc, 13 Valent (Prevnar) [...] EDT Office [facility] [address] [place] [address] Humberto Han MD [address] [place] [address] 02/27/2024 11:00 AM EDT Office Visit Family Practice [facility] [address] [place] [address] Joelle Meredith PA-C [address] [place] [address] 04/07/2024 9:40 AM EST Office Visit Dermatology [facility] [address] [place] [address] Nina Lawson PA-C [address] [facility] [place] [address] Health Maintenance Due Date Last Done Comments [...] Additional history exists CKD HGB USE SMARTSET 09390 08/26/202408/26, 08/31/2022, 08/15/2021, Additional history exists Diabetic Foot Exam 08/26/2024 08/27/2023, 0 02/22/2022, 02/22/2021, Additional history exists CKD PHOS USE SMARTSET 86653 09/26/202409/02, 08/27/2023, 03/06/2023, Additional history exists Cologuard [...] filedocumented as of this encounter Care Teams Staffing Account Manager Relationship Specialty Start Date End Date Ellis Altamirano III, MD [address] [facility] [place] [address] PCP - General Family Medicine 07/23/18 documented as of this encounter
--- OUTSIDE RECORDS SUMMARY | 2024-02-05 03:04 | External Medical Summary | Summary of Care ---
Author Name Unknown Organization [facility] Address [address] [place] [address] Phone [phone] Care Team Providers Care Trade Show Specialist Name Role Phone Adarsh VALENTE MD, Ellis Davis Primary Care Provider [phone] Encounter Details Date Type Department Care Team [...] than 7.0% ([facility]) Take 1 Tab by mouth daily. 30 Tab 12/19/2016 Active Vitamin D 50 MCG (2000 UT) Oral Capsule Take 2,000 Units by mouth in the morning. Active OneTouch Ultra In Vitro Strip (Glucose Blood)Indications:Typ e 2 diabetes mellitus with hemoglobin A1c goal of less than 7.5% ([facility]) USE UP TO FOUR TIMES DAILY DIRECTED 400 Strip 2 03/16/2023 Active OneTouch Delica Lancets 30GIndications:Type 2 diabetes mellitus with stage 3 chronic kidney disease and hypertension ([facility]) USE TO CHECK GLUCOSE UP TO [...] peripheral angiopathy without gangrene, unspecified whether termite treater helper insulin use (HCC) Take 1 Tablet by [...] without gangrene 12/19/2017 Elevated parathyroid hormone 12/21/2016 termite treater helper current use of aromatase inhibitor HTN, goal below 140/90 08/08/2015 Overview: Per HTN Protocol #27. DYSLIPIDEMIA, GOAL LDL BELOW 100 05/12/2009 Overview: Per Lipid Taxonomy. History of malignant melanoma of skin 03/15/2009 Overview: History MELANOMA low lateral R neck: pT1a 0.53mm/172.5 Status post joint replacement 03/08/2008 ADVANCE DIRECTIVE INFORMATION 05/08/2006 Overview: No, Advance Directive brochure given to patient at prior appointment. LOC PRIM [id number] 12/11/2004 Generalized osteoarthritis documented as of this [...] mRNA, LNP-s, No Pre serve, 2-Dose Series ([employer]) 05/16/2021,09/15/2020,08/25/2020 COVID-19, MRNA-LNP, 23-24, P F, 30 MCG/0.3 mL, 12 YRS AND ABOVE, IM ([employer] 05/15/2023 Covid-19, Mrna, Lnp-s, Pf, B ivalent, 30 Mcg, IM, 12 yrs and above ([employer]) 03/08/2022 Pneumococcal Conjugate Vacc, 13 Valent (Prevnar) [...] 11/25/2023 11:30 AM EDT Office [facility] [address] [facility] [place] [address] Humberto Han MD [address] [place] [address] 02/27/2024 11:00 AM EDT Office Visit Family Practice [facility] [address] [place] [address] Joelle Meredith PA-C [address] [place] [address] 04/07/2024 9:40 AM EST Office Visit Dermatology [facility] [address] [place] [address] Nina Lawson PA-C [address] [facility] [place] [address] Health Maintenance Due Date Last Done Comments [...] Additional history exists CKD HGB USE SMARTSET 39131 08/26/202408/26, 08/31/2022, 08/15/2021, Additional history exists Diabetic Foot Exam 08/26/2024 08/27/2023, 0 02/22/2022, 02/22/2021, Additional history exists CKD PHOS USE SMARTSET 53059 09/26/202409/02, 08/27/2023, 03/06/2023, Additional history exists Cologuard [...] filedocumented as of this encounter Care Teams Trade Show Specialist Relationship Specialty Start Date End Date Ellis Altamirano III, MD [address] [facility] [place] [address] PCP - General Family Medicine 07/23/18 documented as of this encounter
--- OUTSIDE RECORDS SUMMARY | 2024-02-05 03:04 | External Medical Summary | Summary of Care ---
Author Name Unknown Organization [facility] Address [address] [place] [address] Phone [phone] Care Team Providers Care Flow Coordinator Name Role Phone Adarsh VALENTE MD, Ellis Davis Primary Care Provider [phone] Encounter Details Date Type Department Care Team [...] A1c goal of less than 7.0% ([facility]) Take 1 Tab by mouth daily. 30 Tab 12/19/2016 Active Vitamin D 50 MCG (2000 UT) Oral Capsule Take 2,000 Units by mouth in the morning. Active OneTouch Ultra In Vitro Strip (Glucose Blood)Indications:Typ e 2 diabetes mellitus with hemoglobin A1c goal of less than 7.5% ([facility]) USE UP TO FOUR TIMES DAILY DIRECTED 400 Strip 2 03/16/2023 Active OneTouch Delica Lancets 30GIndications:Type 2 diabetes mellitus with stage 3 chronic kidney disease and hypertension ([facility]) USE TO CHECK GLUCOSE UP TO 4 [...] diabetic peripheral angiopathy without gangrene, unspecified whether plaster applicator insulin use (HCC) Take 1 Tablet by [...] without gangrene 12/19/2017 Elevated parathyroid hormone 12/21/2016 metal stamper current use of aromatase inhibitor HTN, goal below 140/90 08/08/2015 Overview: Per HTN Protocol #27. DYSLIPIDEMIA, GOAL LDL BELOW 100 05/12/2009 Overview: Per Lipid Taxonomy. History of malignant melanoma of skin 03/15/2009 Overview: History MELANOMA low lateral R neck: pT1a 0.53mm/172.5 Status post joint replacement 03/08/2008 ADVANCE DIRECTIVE INFORMATION 05/08/2006 Overview: No, Advance Directive brochure given to patient at prior appointment. LOC PRIM [id number] 12/11/2004 Generalized osteoarthritis documented as of this [...] mRNA, LNP-s, No Pre serve, 2-Dose Series ([employer]) 05/16/2021,09/15/2020,08/25/2020 COVID-19, MRNA-LNP, 23-24, P F, 30 MCG/0.3 mL, 12 YRS AND ABOVE, IM ([employer]) 05/15/2023 Covid-19, Mrna, Lnp-s, Pf, B ivalent, 30 Mcg, IM, 12 yrs and above ([employer]) 03/08/2022 Pneumococcal Conjugate Vacc, 13 Valent (Prevnar) [...] 11/25/2023 11:30 AM EDT Office [facility] [address] [facility] [place] [address] Humberto Han MD [address] [place] [address] 02/27/2024 11:00 AM EDT Office Visit Family Practice [facility] [address] [place] [address] Joelle Meredith PA-C [address] [place] [address] 04/07/2024 9:40 AM EST Office Visit Dermatology [facility] [address] [place] [address] Nina Lawson PA-C [address] [facility] [place] [address] Health Maintenance Due Date Last Done Comments [...] Additional history exists CKD HGB USE SMARTSET 38197 08/26/202408/26, 08/31/2022, 08/15/2021, Additional history exists Diabetic Foot Exam 08/26/2024 08/27/2023, 0 02/22/2022, 02/22/2021, Additional history exists CKD PHOS USE SMARTSET 58985 09/26/202409/02, 08/27/2023, 03/06/2023, Additional history exists Cologuard [...] filedocumented as of this encounter Care Teams Flow Coordinator Relationship Specialty Start Date End Date Ellis Altamirano III, MD [address] [place] [address] PCP - General Family Medicine 07/23/18 documented as of this encounter
--- OUTSIDE RECORDS SUMMARY | 2024-02-05 03:04 | External Medical Summary | Summary of Care ---
Author Name Unknown Organization [facility] Address [address] [place] [address] Phone [phone] Care Team Providers Care Rug Weaver Name Role Phone Adarsh VALENTE MD, Ellis Davis Primary Care Provider [phone] Encounter Details Date Type Department Care Team (Late st Contact Info) Description 10/17/2023 Orders Only Family Practice [facility] [address] [facility] [place] [address] Joelle Meredith PA-C [address] [facility] [place] [address] Allergies Active Allergy Reactions Criticality Noted Date Comments Adhesive Tape 11/25/2008 sore sensitive skin Povidone 07/08/2009 documented as of this encounter (statuses as of 10/17/2023) Medications Medication Sig Dispensed Refills Start Date End Date Status Blood Glucose Monitoring Suppl (ONETOUCH ULTRA SYSTEM) W/DEVICE KIT Use up to four times a day as directed 1 Kit 0 12/19/2016 Active Aspirin 81 MG TabletIndications:Typ e 2 diabetes mellitus with hemoglobin A1c goal of less than 7.0% ([facility]) Take 1 Tab by mouth daily. 30 Tab 0 12/19/2016 Active Vitamin D 50 MCG (1999) Oral Capsule Take 2,000 Units by mouth in the morning. 0 Active OneTouch Ultra In Vitro Strip (Glucose [...] 400 MG Oral Tablet Take by mouth. 0 Active Atorvastatin Calcium 40 MG Oral Tablet [...] peripheral angiopathy without gangrene, unspecified whether intermediate school teacher insulin use (HCC) Take 1 Tablet by [...] as of this encounter (statuses as of 10/17/2023) Active Problems Problem Noted Date Diagnosed Date [...] without gangrene 12/19/2017 Elevated parathyroid hormone 12/21/2016 joint terminal attack controller current use of aromatase inhibitor HTN, goal below 140/90 08/08/2015 Overview: Per HTN Protocol #27. DYSLIPIDEMIA, GOAL LDL BELOW 100 05/12/2009 Overview: Per Lipid Taxonomy. History of malignant melanoma of skin 03/15/2009 Overview: History MELANOMA low lateral R neck: pT1a 0.53mm/172.5 Status post joint replacement 03/08/2008 ADVANCE DIRECTIVE INFORMATION 05/08/2006 Overview: No, Advance Directive brochure given to patient at prior appointment. LOC PRIM [id number] 12/11/2004 Generalized osteoarthritis documented as of this encounter (statuses as of 10/17/2023) Resolved Problems Problem Noted Date Diagnosed Date [...] as of this encounter (statuses as of 10/17/2023) Immunizations Name Administration Dates Next Due COVID-19 mRNA, LNP-s, No Pre serve, 2-Dose Series ([employer]) 05/16/2021,09/15/2020,08/25/2020 COVID-19, MRNA-LNP, 23-24, P F, 30 MCG/0.3 mL, 12 YRS AND ABOVE, IM ([facility]) 05/15/2023 Covid-19, Mrna, Lnp-s, Pf, B ivalent, [...] 11/25/2023 11:30 AM EDT Office Visit Orthopaedics [facility] [address] [place] [address] Humberto Han MD [address] [place] [address] 02/27/2024 11:00 AM EDT Office Visit Family Practice [facility] [address] [place] [address] Joelle Meredith PA-C [address] [place] [address] 04/07/2024 9:40 AM EST Office Visit Dermatology [facility] [address] [place] [address] Nina Lawson, OTTO [address] [facility] [place] [address] Health Maintenance Due Date Last Done Comments Fecal Occult Blood Test 1994 Sigmoidoscopy 1994 Colonoscopy 03/04/2019 03/04/2009 DXA Scan 03/05/2023 03/05/2016 Depression Screening 08/23/2023 08/22/2022, 12/16/19 15 Albumin/Creatinine Ratio 09/01/2023 023, 08/15/2021, 07/28/2020, Additional history exists Diabetic Eye Exam 01/12/2024 01/11/2023, , 01/10/2021, Additional history exists GFR 02/27/2024 08/27/2023, 10/0 09/2022, 08/31/2022, Additional history exists HbA1c 02/27/2024 08/27/2023, 10/0 09/2022, 08/31/2022, Additional history exists B-12 03/06/2024 03/06/2023, 02/02, 02/22/2021, Additional history exists CKD HGB USE SMARTSET 27603 08/26/202408/26, 08/31/2022, 08/15/2021, Additional history exists Diabetic Foot Exam 08/26/2024 08/27/2023, 0 02/22/2022, 02/22/2021, Additional history exists CKD PHOS USE SMARTSET 74893 09/26/202409/02, 08/27/2023, 03/06/2023, Additional history exists Cologuard [...] Completed , 02/22/2022, 02/22/2021, Additional history exists COVID-19 Vaccine Completed 05/15/2023, 11/2021, 05/16/2021, Additional history exists GARDASIL-HPV IMMUNIZATION SERIES Aged [...] Procedure Name Priority Date/Time Associated Diagnosis Comments MAMMOGRAM DIAGNOSTIC LEFT Routine 10/16/2023 documented in this encounter Results * MAMMOGRAM DIAGNOSTIC LEFT (10/16/2023) Anatomical Region Laterality Modality Breast Left Other 10/16/2023 Joelle Jacoby Meredith PA-C RAD MAMMOGRAPHY documented in this encounter Care Teams Rug Weaver Relationship Specialty Start Date End Date Ellis Altamirano III, MD [address] [facility] [place] [address] PCP - General Family Medicine 07/23/18 documented as of this encounter
[2024-02-05 03:11] LABS: ANTI-Xa, UFH(UnfractionatedHep 0.29 IU/ml (0.3-0.7)
[2024-02-05] MEDS: ATORVASTATIN 40 MG TAB PO SCH (08:32)
[2024-02-05] MEDS: CHOLECALCIFEROL 25 MCG (1000 UNITS) TAB PO SCH (08:32)
[2024-02-05] MEDS: MAGNESIUM OXIDE 400 MG TAB PO SCH (08:32)
[2024-02-05] MEDS: FUROSEMIDE 40 MG/4 ML VIAL IV SCH (08:36)
[2024-02-05 08:38] LABS: Estimated Average Glucose 163 mg/dl; Hemoglobin A1C 7.3 % (4.5-5.6)
--- NOTE | 2024-02-05 08:56 | Cardiology Consultation ---
Date of Consultation February 05, 2024 Assessment & Plan (1) Atrial fibrillation with rapid ventricular response: (2) Heart failure with acute decompensation, type unknown: Plan Assessment: 73 year-old female presents with acute HF symptoms progressively worsening over the past 2-3 months with new onset atrial fibrillation with RVR. Plan: -Patient remains in atrial fibrillation with rates 100-120bpm. She denies any active palpitations making it difficult to determine if she has had A-fib and in particular elevated rates for a long period of time. -Denies any prior cardiac history other being told she had a "innocent murmur" as a child. -Obtain echocardiogram to assess overall structure and function as well as any evidence to suggest etiology for her symptoms. -Continue to monitor on telemetry. Continue Metoprolol tartrate 25mg Q6H. Will discuss further titration pending echocardiogram results for better rate control. -patient is diuresing well. Continue Furosemide 40mg IV BID. -maintain strict I&O, daily weights, chair or standing scale if possible. -maintain serum K> 4.0 and serum mag greater than 2.0 -Provide CHF teaching. -Close monitoring of renal function. -[id number] score of 4 (CHF, age 65-74, gender, diabetic). Continue Heparin gtt at this time, will consider transition to PO oral anticoagulation possibly with Eliquis pending echocardiogram and cost affordability. Recommend this is checked with case management. - Will reassess volume status in the AM. Case has been discussed with Dr. Jeong. Further recommendations regarding plan of care as per his assessment. I spent a total of 40 minutes on the date of service in preparation, delivery, documentation of the care provided to the patient excluding any time spent in the performance of separately billed services. CINDY Vazquez [facility] Cardiology [facility] Supervising Physician Co-Signing Physician Notes I have personally performed a history and physical examination on the patient. I have reviewed the advance practitioner's documentation, and I agree with, and take responsibility for the plan of care. 73-year-old female mated with paroxysmal likely persistent atrial fibrillation with rapid ventricular response and acute heart failure with preserved ejection fraction. Continue rate control strategy and anticoagulate with IV heparin. Ultimately, patient will be transition from IV heparin to oral Eliquis. Continue IV diuresis with furosemide 40 mg twice daily. Monitor fluid balance, daily weight, electrolytes, and GFR. Echocardiogram with evidence of mild to moderate pulmonary hypertension and mild RV enlargement. Outpatient sleep apnea evaluation recommended. Cardiology will continue to follow patient during hospitalization. I spent a total of 35 minutes on the date of service in preparation, delivery, and documentation of the care provided to this patient, excluding any time spent in the performance of separately billed services. Reza Jeong DO, [facility] History of Present Illness Reason for Consultation: New onset atrial fibrillation with RVR Requesting Physician: Leonie coates Attending Physician: Bharath Potts MD History of Present Illness HPI: Patient is a 73 year-old female with PMHx significant for HTN, CKD stage III, DM type II, and obesity that presented to her PCP offer with concerns of f atigue that has been ongoing all summer. She also endorses a 40lb weight gain over the past 2 weeks according to her home scale, lower extremity edema, and dyspnea with even minor exertion. Endorses PND. She also noted FibBit was alarming her of an "Irregular rhythm". EKG obtained demonstrating A-fib with RVR. She was taken to the ED immediately for further evaluation. EKG on admission demonstrates High sensitivity tropnoin negative x1 TSH elevated 7.229, Free T4 negative. A-fib with RVR, cannot rule out anterior infarct Rate 137bpm Chest x-ray negative Telemetry demonstrates atrial fibrillation with rates 100-120bpm. For echocardiogram today. Patient is feeling fair today resting in bed. She denies any chest pain, pressure or palpitations, but can feel "something isn't right". she remains quite swollen, although is making good output. She has been able to ambulate from the bed to the restroom with assistance. She has a intermittent non productive cough which she states is the end of a head/chest cold from last week. She states her fatigue, weight gain, and swelling have been long before that, more like that past 2-3 months. Denies any prior history of A-fib or arrhythmia for herself. States that her father had some cardiac issues complicated by lymphoma. Allergies Allergy/AdvReac Type Severity Reaction Status Date / Time adhesive Allergy Mild RED SKIN, Verified 02/04/24 17:20 BLISTERS Home Medications Medication Instructions Recorded Confirmed Type aspirin 81 mg tablet,delayed 81 mg PO HS 02/04/24 02/04/24 History release atorvastatin 40 mg tablet 40 mg PO QAM 02/04/24 02/04/24 History cholecalciferol (vitamin D3) 50 50 mcg PO QAM 02/04/24 02/04/24 History mcg (2,000 unit) tablet (Vitamin D3) cinnamon bark 500 mg capsule 500 mg PO AMHS 02/04/24 02/04/24 History (Cinnamon) diclofenac sodium 75 mg 75 mg PO DAILY PRN Pain 02/04/24 02/04/24 History tablet,delayed release empagliflozin 10 mg tablet 10 mg PO QAM 02/04/24 02/04/24 History (Jardiance) lisinopril 40 mg tablet 40 mg PO QAM 02/04/24 02/04/24 History magnesium 500 mg tablet 15 mg PO DAILY 02/04/24 02/04/24 History metformin 500 mg tablet,extended 500 mg PO QAM 02/04/24 02/04/24 History release 24 hr nifedipine 90 mg tablet,extended 90 mg PO QAM 02/04/24 02/04/24 History release 24 hr pioglitazone 30 mg tablet 30 mg PO HS 02/04/24 02/04/24 History Patient History Medical History (Updated 02/05/24 @ 08:[address]) Diabetes mellitus, type 2 Social History Smoking Status: Never smoker Second Hand Exposure: No; Do You Dip or Chew Tobacco: No; Tobacco Cessation Education Requested by Patient: No Hx Alcohol Use: Yes Alcohol type: wine Hx Substance Use: No Preferred Language: Tamaz[place] Communication Ability: Effective Leader Tier Required: No Beliefs That Will Affect Care: None Current Living Situation: Spouse Other Information That Helps Us Care for You: No Feels Safe at Home: Yes Safety Concerns: Feels Safe At This Time Assistive Devices: Cane Review of Systems Review of Systems: All systems reviewed & are unremarkable except as noted in HPI & below Physical Exam Constitutional: well developed, well nourished, + obese and + edematous Neck: normal visual inspection and trachea midline Respiratory: normal respiratory effort and + cough; no respiratory distress and no labored breathing Auscultation: + diminished lung sounds (bilateral bases ); no crackles, no rales, no rhonchi and no wheezes Cardiovascular: Rate/Rhythm: + tachycardic and + irregularly irregular Heart Sounds: normal S1 and normal S2; no murmur Vessels: no JVD Extremities: + edema (+2 BLE ) Skin: no rashes, warm and dry (erythema noted on bilat lower extremities. ) Psychiatric: A+Ox3, euthymic affect Results & Data Vital Signs (Past 12 Hours) Vital Signs Temp Pulse Pulse Resp BP Pulse Ox O2 Del Method 02/05/24 07:27 36.4 C L 110 H 17 118/89 94 Room Air 02/05/24 05:50 106 H 18 137/82 94 Room Air 02/05/24 01:11 95 H 20 121/78 95 Room Air 02/04/24 22:29 95 H 02/04/24 22:24 Room Air 02/04/24 22:24 36.4 C L 85 18 111/70 92 Room Air Laboratory Results Cardiac Enzymes 02/04/24 Range/Units 16:10 AST 10 L (13-39) U/L Troponin I High Sens 6.1 (0-14) pg/ml B-Natriuretic Peptide 378 H (0-100) pg/ml Coagulation 02/04/24 Range/Units 16:10 PT 11.5 (9.0-12.0) Seconds APTT 26 (21-31) Seconds B-Natriuretic Peptide 378 H (0-100) pg/ml CBC 02/04/24 02/05/24 Range/Units 16:10 02:08 WBC 7.12 6.65 (4.8-10.8) K/ul RBC 4.17 L 3.91 L (4.20-5.40) M/uL Hgb 12.3 11.4 L (12.0-16.0) g/dl Hct 38.2 35.5 L (37.0-47.0) % Plt Count 308 283 (130-400) K/uL Neut # (Auto) 5.63 (1.40-6.50) K/uL Lymph # (Auto) 0.85 L (1.20-3.40) K/uL [place] # (Auto) 0.41 (0.11-0.59) K/uL Eos # (Auto) 0.16 (0.00-0.50) K/uL Baso # (Auto) 0.03 (0.00-0.20) K/uL Comprehensive Metabolic Panel 02/04/24 02/05/24 Range/Units 16:10 02:08 Sodium 139 139 (136-145) mmol/L Potassium 4.4 4.2 (3.5-5.1) mmol/L Chloride 103 105 (98-107) mmol/L Carbon Dioxide 29 27 (21-32) mmol/L BUN 23 24 H (6-23) mg/dl Creatinine 1.25 H 1.18 (0.6-1.2) mg/dl Glucose 155 H 150 H (70-99(Fasting)) mg/dl Calcium 10.9 H 10.5 H (8.6-10.3) mg/dl AST 10 L (13-39) U/L ALT 8 (7-52) U/L Alkaline Phosphatase 88 (34-104) U/L Total Protein 7.2 (6.0-8.3) gm/dl Albumin 4.0 (3.4-5.0) gm/dl Intake and Output 02/04/24 02/05/24 02/05/24 22:59 06:59 14:59 Intake Total 152.667 / 152.667 155.833 / 155.833 Output Total 250 / 250 Balance -97.333 / -97.333 155.833 / 155.833 Intake: IV 152.667 / 152.667 155.833 / 155.833 Heparin Sodium/Dextrose 25,000 152.667 / 152.667 155.833 / 155.833 units In 500 ml @ 1,100 UNITS/ HR 22 mls/hr IV .[id number] [facility] Rx #:[id number] Output: Urine 250 / 250 Other: # Unmeasured Voids 1 Weight 166 kg 158.213 kg Weight Measurement Method Built in Bedscale Standing Scale Diagnostic Findings Echocardiogram pending
[2024-02-05 10:14] LABS: ANTI-Xa, UFH(UnfractionatedHep 0.21 IU/ml (0.3-0.7)
--- NOTE | 2024-02-05 13:39 | Electrocardiogram Report ---
Test Reason : Blood Pressure : */* mmHG Vent. Rate : 137 BPM Atrial Rate : * BPM P-R Int : * ms QRS Dur : 84 ms QT Int : 258 ms P-R-T Axes : * 55 243 degrees QTcB Int : 389 ms Atrial fibrillation with rapid ventricular response Abnormal ECG Confirmed by Ethan Yanes ([id number]) on 02/05/2024 1:38:54 PM Referred By: Jenny Aldridge Confirmed By: Ehtan Yanes
--- NOTE | 2024-02-05 15:36 | Hospitalist Progress Note ---
Date of Service February 05, 2024 Assessment & Plan (1) Atrial fibrillation with rapid ventricular response: (2) Heart failure with acute decompensation, type unknown: Plan per previous hospitalist notes with addendum: Patient went to her PCP as she has been feeling fatigued all summer. Reported to have retaining fluids in her feet and legs; has gained 40 pounds in the last 2-3 weeks. Reports increasing shortness of breath even with minor exertion. Her Fitbit noted her irregular heart rate. Her creatinine is mildly elevated to 1.25, calcium slightly elevated 10.9 BNP elevated to 378 Chest x-ray personally reviewed; reveals cardiomegaly with mild pulmonary conges tion ATRIAL FIBRILLATION IN RVR CHADSVASC 4 echo: pending on Metoprolol 25mg QID, Heparin drip Cardiology Consulted BILATERAL LOWER EXTREMITY EDEMA possible acute CHF exacerbation ff up echo continue Lasix IV Will hold lisinopril, nifedipine as her blood pressure is on the lower side. Chronic conditions; Type 2 diabetes mellitus -hold home agents. Started on insulin. Will need to stop pioglitazone Hypertensionhold lisinopril, nifedipine. Started on metoprolol. Dyslipidemiacontinue Lipitor. Aspirin currently on hold; seems to be on it for primary prevention. Full code DVT prophylaxis heparin Admission and Anticipated Discharge Date Admission Date: February 04, 2024 Subjective ff up for atrial fibrillation in RVR, etc seen resting in bed, comfortable in good spirits states she feels fine overall denies chest pain, palpitations, dizziness no other symptoms Review of Systems Review of Systems: all noted and negative except for above Physical Exam Physical Exam: General- oriented x 3, not in distress, speaks in sentences with no effort or accessory muscle use Eyes- anicteric Neck- no JVD Lungs- clear breath sounds bilaterally, no crackles or wheezing Heart- normal rate, irregularly irregular rhythm; no murmurs Abdomen- normal bowel sounds, nondistended, soft, nontender Extremities- gr 1 pretibial edema, no calf tenderness Neuro- alert, oriented x 3; no gross focal neurologic deficits Skin- warm & dry Results & Data Results & Data Vital Signs (Past 12 Hours) Vital Signs Temp Pulse Pulse Resp BP Pulse Ox O2 Del Method 02/05/24 14:49 36.3 C L 80 17 120/82 96 Room Air 02/05/24 14:45 103 H 02/05/24 11:15 36.3 C L 100 H 18 101/67 94 Room Air 02/05/24 09:39 100 H 02/05/24 07:27 36.4 C L 110 H 17 118/89 94 Room Air 02/05/24 05:50 106 H 18 137/82 94 Room Air
[2024-02-05 17:29] LABS: ANTI-Xa, UFH(UnfractionatedHep 0.21 IU/ml (0.3-0.7)
[2024-02-06 00:17] LABS: ANTI-Xa, UFH(UnfractionatedHep 0.32 IU/ml (0.3-0.7)
[2024-02-06 06:56] LABS: Hematocrit (blood only) 36.9 % (37.0-47.0); Hemoglobin 12.3 g/dl (12.0-16.0); Mean Corpuscular Hemoglobin 29.7 pg (25.0-34.0); Mean Corpuscular Hgb Conc 33.3 g/dL (32.0-36.0); Mean Corpuscular Volume 89.1 fL (80.0-100.0); Mean Platelet Volume 9.9 fL (9.4-12.4); Platelet Count 279 K/uL (130-400); RDW Coefficient of Variation 15.9 % (11.5-14.5); RDW Standard Deviation 51.8 fL (36.4-46.3); Red Blood Count 4.14 M/uL (4.20-5.40); White Blood Count 6.63 K/ul (4.8-10.8)
[2024-02-06 07:12] LABS: Creatinine Clr Calc Pharmacy 61.1 ml/min
--- NOTE | 2024-02-06 08:33 | Cardiology Progress Note ---
Date of Service February 06, 2024 Assessment & Plan (1) Atrial fibrillation with rapid ventricular response: (2) Heart failure with acute decompensation, type unknown: Plan Assessment: 73 year-old female presents with acute HF symptoms progressively worsening over the past 2-3 months with new onset atrial fibrillation with RVR. Plan: -Patient remains in atrial fibrillation with rates 100-120bpm. She denies any active palpitations making it difficult to determine if she has had A-fib and in particular elevated rates for a long period of time. -Denies any prior cardiac history other being told she had a "innocent murmur" as a child. -Obtain echocardiogram to assess overall structure and function as well as any evidence to suggest etiology for her symptoms. -Continue to monitor on telemetry. Continue Metoprolol tartrate 25mg Q6H. Will discuss further titration pending echocardiogram results for better rate control. -patient is diuresing well. Continue Furosemide 40mg IV BID. -maintain strict I&O, daily weights, chair or standing scale if possible. -maintain serum K> 4.0 and serum mag greater than 2.0 -Provide CHF teaching. -Close monitoring of renal function. -[id number] score of 4 (CHF, age 65-74, gender, diabetic). Continue Heparin gtt at this time, will consider transition to PO oral anticoagulation possibly with Eliquis pending echocardiogram and cost affordability. Recommend this is checked with case management. - Will reassess volume status in the AM. 02/06/2024: -Patient showing clinical improvement since time of admission, remains volume overloaded. - Negative 3 kg weight reduction and currently -1000cc fluid balance. -Continue Furosemide 40mg IV BID -HR remains elevated, will change Metoprolol tartrate dosing to 50mg PO TID. -Continue to monitor on telemetry. -maintain strict I&O, daily weights, chair or standing scale if possible. -maintain serum K> 4.0 and serum mag greater than 2.0 -Provide CHF teaching. -Close monitoring of renal function. -[id number] score of 4 (CHF, age 65-74, gender, diabetic). Continue Heparin gtt at this time, will consider transition to PO oral anticoagulation with Eliquis. -Will reassess fluid status in the AM Case has been discussed with Dr. Jeong. Further recommendations regarding plan of care as per his assessment. I spent a total of 30 minutes on the date of service in preparation, delivery, documentation of the care provided to the patient excluding any time spent in the performance of separately billed services. CINDY Vazquez [facility] Cardiology [facility] Admission and Anticipated Discharge Date Admission Date: February 04, 2024 Supervising Physician Co-Signing Physician Notes I have personally performed a history and physical examination on the patient. I have reviewed the advance practitioner's documentation, and I agree with, and take responsibility for the plan of care. 73-year-old female with paroxysmal likely persistent atrial fibrillation with rapid ventricular response and acute heart failure with preserved ejection fraction. Titrate metoprolol to 50 mg 3 times daily. Continue IV diuresis. Monitor fluid balance, daily weight, electrolytes, and GFR. Transition IV heparin to oral Eliquis tonight. Echocardiogram with evidence of mild to mo derate pulmonary hypertension and mild RV enlargement. Outpatient sleep apnea evaluation recommended. Cardiology will continue to follow patient during hospitalization. I spent a total of 30 minutes on the date of service in preparation, delivery, and documentation of the care provided to this patient, excluding any time spent in the performance of separately billed services. Reza Jeong DO, [facility] Subjective 02/06/2024: Patient seen and examined in follow up today. Feeling some improvement. Denies any chest pain or pressure, no palpitations. Reports improvement in her breathing and less leg swelling. She states that she was uncomfortable in bed last night and so she slept in the chair, reports she hasn't slept that soundly in weeks! Labs, vitals, diagnostics, telemetry and documentation reviewed. Telemetry reviewed showing A-fib Rates 90-110 at rest, 120s with minimal exertion. -987ml fluid balance this morning. -3kg weight deficit Review of Systems Review of Systems: All systems reviewed & are unremarkable except as noted in HPI & below Physical Exam Constitutional: well developed, well nourished, + obese and + edematous Neck: normal visual inspection and trachea midline Respiratory: normal respiratory effort and + cough; no respiratory distress and no labored breathing Auscultation: + diminished lung sounds (bilateral bases ); no crackles, no rales, no rhonchi and no wheezes Cardiovascular: Rate/Rhythm: + tachycardic and + irregularly irregular Heart Sounds: normal S1 and normal S2; no murmur Vessels: no JVD Extremities: + edema (+2 BLE ) Skin: no rashes, warm and dry (erythema noted on bilat lower extremities. ) Psychiatric: A+Ox3, euthymic affect Results & Data Vital Signs (Past 12 Hours) Vital Signs Temp Pulse Pulse Resp BP Pulse Ox O2 Del Method 02/06/24 07:30 115 H 02/06/24 07:01 36.6 C 108 H 18 117/70 94 Room Air 02/06/24 05:50 71 20 123/84 02/06/24 00:47 114 H 20 147/83 H Room Air 02/05/24 23:04 36.3 C L 102 H 20 98/71 L 92 Room Air 02/05/24 22:28 82 Laboratory Results CBC 02/06/24 Range/Units 06:07 WBC 6.63 (4.8-10.8) K/ul RBC 4.14 L (4.20-5.40) M/uL Hgb 12.3 (12.0-16.0) g/dl Hct 36.9 L (37.0-47.0) % Plt Count 279 (130-400) K/uL Comprehensive Metabolic Panel 02/06/24 Range/Units 06:07 Sodium 139 (136-145) mmol/L Potassium 4.1 (3.5-5.1) mmol/L Chloride 102 (98-107) mmol/L Carbon Dioxide 25 (21-32) mmol/L BUN 25 H (6-23) mg/dl Creatinine 1.27 H (0.6-1.2) mg/dl Glucose 90 (70-99(Fasting)) mg/dl Calcium 11.0 H (8.6-10.3) mg/dl Intake and Output 02/05/24 02/06/24 02/06/24 22:59 06:59 14:59 Intake Total 191.5 / 1112.433 295.1 / 1112.433 Output Total 750 / 2100 1000 / 2100 Balance -558.5 / -987.567 -704.9 / -987.567 Intake: IV 191.5 / 642.433 295.1 / 642.433 Heparin Sodium/Dextrose 25,000 191.5 / 642.433 295.1 / 642.433 units In 500 ml @ 1,300 UNITS/ HR 26 mls/hr IV .[id number] [facility] Rx #:[id number] Output: Urine 750 / 2100 1000 / 2100 Other: Weight 155.2 kg Weight Measurement Method Standing Scale
--- NOTE | 2024-02-06 11:05 | Electrocardiogram Report ---
Test Reason : Blood Pressure : */* mmHG Vent. Rate : 100 BPM Atrial Rate : 89 BPM P-R Int : * ms QRS Dur : 90 ms QT Int : 296 ms P-R-T Axes : * 77 23 degrees QTcB Int : 381 ms Atrial fibrillation Nonspecific ST and T wave abnormality Abnormal ECG When compared with ECG of 04-Feb-2024 16:06, Minimal criteria for Anterior infarct are no longer Present Confirmed by Ethan Yanes ([id number]) on 02/06/2024 11:04:40 AM Referred By: Jenny Aldridge Confirmed By: Ethan Yanes
[2024-02-06 11:49] LABS: Potassium 4.1 mmol/L (3.5-5.1)
[2024-02-06 11:55] LABS: BUN Creatinine Ratio 19.7 (10-20); Est GFR (African American) 48.1 ml/min; Est GFR (Non-African American) 41.5 ml/min
[2024-02-06 12:15] LABS: Magnesium 1.7 mg/dl (1.7-2.4)
[2024-02-06] MEDS: guaiFENesin 600 MG TABCR PO SCH (12:45)
[2024-02-06] MEDS: METOPROLOL TARTRATE 25 MG TAB PO ONE (13:44)
--- NOTE | 2024-02-06 18:02 | Hospitalist Progress Note ---
Date of Service February 06, 2024 delayed entry date of service noted above Assessment & Plan (1) Atrial fibrillation with rapid ventricular response: (2) Heart failure with acute decompensation, type unknown: Plan per previous hospitalist notes with addendum: Patient went to her PCP as she has been feeling fatigued all summer. Reported to have retaining fluids in her feet and legs; has gained 40 pounds in the last 2-3 weeks. Reports increasing shortness of breath even with minor exertion. Her Fitbit noted her irregular heart rate. Her creatinine is mildly elevated to 1.25, calcium slightly elevated 10.9 BNP elevated to 378 Chest x-ray personally reviewed; reveals cardiomegaly with mild pulmonary congestion ATRIAL FIBRILLATION IN RVR CHADSVASC 4 echo:EF 60 to 65%, mild concentric LVH, left atrium moderately dilated, mild tricuspid regurgitation, on Metoprolol 25mg QID, Heparin drip 02/05 Heart rate improving, remains in atrial fibrillation Metoprolol transition to 50 mg 3 times daily, heparin continued Acute CHF exacerbation with preserved ejection fraction Continue Lasix 60 mg IV twice daily Monitor closely Chronic conditions; Type 2 diabetes mellitus -hold home agents. continue on insulin. Will need to stop pioglitazone Hypertensionhold lisinopril, nifedipine. Started on metoprolol. Dyslipidemiacontinue Lipitor. Aspirin currently on hold; seems to be on it for primary prevention. Full code DVT prophylaxis heparin Admission and Anticipated Discharge Date Admission Date: February 04, 2024 Subjective Follow-up for new onset atrial fibrillation, acute CHF, etc. Seen the bedside, having lunch States she feels okay overall, just tired Denies chest pain, palpitations, dizziness No other new symptoms Review of Systems Review of Systems: all noted and negative except for above Physical Exam Physical Exam: General- oriented x 3, not in distress, speaks in sentences with no effort or accessory muscle use Eyes- anicteric Neck- no JVD Lungs- clear breath sounds bilaterally, No crackles or wheezes Heart- normal rate, irregularly irregular rhythm; no murmurs Abdomen- normal bowel sounds, nondistended, soft, no tenderness Extremities-Grade 2 bilateral lower extremity edema, no calf tenderness Neuro- alert, oriented x 3; no gross focal neurologic deficits Skin- warm & dry Results & Data Results & Data Vital Signs (Past 12 Hours) Vital Signs Temp Pulse Pulse Resp BP Pulse Ox O2 Del Method 02/06/24 15:46 95 H 02/06/24 14:49 36.5 C 95 H 18 133/97 93 Room Air 02/06/24 11:09 36.4 C L 81 18 138/87 95 Room Air 02/06/24 07:30 115 H 02/06/24 07:01 36.6 C 108 H 18 117/70 94 Room Air all noted and reviewed including below
[2024-02-06] MEDS: METOPROLOL TARTRATE 50 MG TAB PO SCH (20:35)
[2024-02-07 06:32] LABS: ANTI-Xa, UFH(UnfractionatedHep 0.34 IU/ml (0.3-0.7)
--- NOTE | 2024-02-07 08:58 | Cardiology Progress Note ---
Date of Service February 07, 2024 Assessment & Plan (1) Atrial fibrillation with rapid ventricular response: (2) Heart failure with acute decompensation, type unknown: Plan Assessment: 73 year-old female presents with acute HF symptoms progressively worsening over the past 2-3 months with new onset atrial fibrillation with RVR. Plan: -Patient remains in atrial fibrillation with rates 100-120bpm. She denies any active palpitations making it difficult to determine if she has had A-fib and in particular elevated rates for a long period of time. -Denies any prior cardiac history other being told she had a "innocent murmur" as a child. -Obtain echocardiogram to assess overall structure and function as well as any evidence to suggest etiology for her symptoms. -Continue to monitor on telemetry. Continue Metoprolol tartrate 25mg Q6H. Will discuss further titration pending echocardiogram results for better rate control. -patient is diuresing well. Continue Furosemide 40mg IV BID. -maintain strict I&O, daily weights, chair or standing scale if possible. -maintain serum K> 4.0 and serum mag greater than 2.0 -Provide CHF teaching. -Close monitoring of renal function. -[id number] score of 4 (CHF, age 65-74, gender, diabetic). Continue Heparin gtt at this time, will consider transition to PO oral anticoagulation possibly with Eliquis pending echocardiogram and cost affordability. Recommend this is checked with case management. - Will reassess volume status in the AM. 02/06/2024: -Patient showing clinical improvement since time of admission, remains volume overloaded. - Negative 3 kg weight reduction and currently -1000cc fluid balance. -Continue Furosemide 40mg IV BID -HR remains elevated, will change Metoprolol tartrate dosing to 50mg PO TID. -Continue to monitor on telemetry. -maintain strict I&O, daily weights, chair or standing scale if possible. -maintain serum K> 4.0 and serum mag greater than 2.0 -Provide CHF teaching. -Close monitoring of renal function. -[id number] score of 4 (CHF, age 65-74, gender, diabetic). Continue Heparin gtt at this time, will consider transition to PO oral anticoagulation with Eliquis. -Will reassess fluid status in the AM 02/07/2024: -Slight improvement in patient's resting heart rate. Continue Metoprolol tartrate 50mg PO TID. -Patient continues to diurese well, but remains hypervolemic. Continue Furosemide 40mg IV BID -5kg weight reduction per I&O record. -Continue to monitor on telemetry. -maintain strict I&O, daily weights, chair or standing scale if possible. -maintain serum K> 4.0 and serum mag greater than 2.0 -Provide CHF teaching. -Close monitoring of renal function. -[id number] score of 4 (CHF, age 65-74, gender, diabetic). Stop Heparin gtt in favor of starting Eliquis 5mg PO BID. -Encourage patient to elevate legs while in bed or in recliner. Would recommend use of compression wraps to assist in mobilizing fluid. -Reassess fluid status in the AM. Case has been discussed with Dr. Jeong. Further recommendations regarding plan of care as per his assessment. I spent a total of 30 minutes on the date of service in preparation, delivery, documentation of the care provided to the patient excluding any time spent in the performance of separately billed services. CINDY Vazquez [facility] Admission and Anticipated Discharge Date Admission Date: February 04, 2024 Supervising Physician Co-Signing Physician Notes I have personally performed a history and physical examination on the patient. I have reviewed the advance practitioner's documentation, and I agree with, and take responsibility for the plan of care. 73-year-old female with paroxysmal likely persistent atrial fibrillation with rapid ventricular response and acute heart failure with preserved ejection fraction. Diuresis improved overnight however, remains volume overloaded. No lab studies available for review today. I have ordered stat basic metabolic panel and serum magnesium level. Consider titration of Lasix to 60 mg twice daily pending review. Metoprolol titrated to 50 mg 3 times daily yesterday. Mild heart rate improvement noted. Transition IV heparin to Eliquis. Echocardiogram with evidence of mild to moderate pulmonary hypertension and mild RV enlargement. Outpatient sleep apnea evaluation recommended. I spent a total of 30 minutes on the date of service in preparation, delivery, and documentation of the care provided to this patient, excluding any time spent in the performance of separately billed services. Reza Jeong DO, [facility] Subjective 02/07/2024: Patient seen and examined in follow up today. Continues to feel improvement. Labs, vitals, diagnostics, telemetry and documentation reviewed. Telemetry reviewed showing Atrial fibrillation -2400 fluid balance. -5kg weight reduction Review of Systems Review of Systems: All systems reviewed & are unremarkable except as noted in HPI & below Physical Exam Constitutional: well developed, well nourished, + obese and + edematous Neck: normal visual inspection and trachea midline Respiratory: normal respiratory effort and + cough; no respiratory distress and no labored breathing Auscultation: + diminished lung sounds (bilateral bases ); no crackles, no rales, no rhonchi and no wheezes Cardiovascular: Rate/Rhythm: + tachycardic and + irregularly irregular Heart Sounds: normal S1 and normal S2; no murmur Vessels: no JVD Extremities: + edema (+2 BLE ) Skin: no rashes, warm and dry (erythema noted on bilat lower extremities. ) Psychiatric: A+Ox3, euthymic affect Results & Data Vital Signs (Past 12 Hours) Vital Signs Temp Pulse Resp BP Pulse Ox O2 Del Method 02/07/24 07:03 36.6 C 94 H 18 127/63 93 Room Air 02/07/24 03:11 36.3 C L 100 H 22 128/85 94 Room Air 02/06/24 23:20 36.5 C 108 H 18 118/71 94 Room Air Laboratory Results Comprehensive Metabolic Panel 02/06/24 Range/Units 06:07 Potassium 4.1 (3.5-5.1) mmol/L Carbon Dioxide 25 (21-32) mmol/L BUN 25 H (6-23) mg/dl Creatinine 1.27 H (0.6-1.2) mg/dl Glucose 90 (70-99(Fasting)) mg/dl Calcium 11.0 H (8.6-10.3) mg/dl Intake and Output 02/06/24 02/07/24 02/07/24 22:59 06:59 14:59 Intake Total 200 / 874.9 100 / 874.9 Output Total 1900 / 3301 800 / 3301 Balance -1700 / -2426.1 -700 / -2426.1 Intake: Oral 200 / 670 100 / 670 Output: Urine 1900 / 3300 800 / 3300 Other: Weight 153.2 kg Weight Measurement Method Standing Scale
[2024-02-07] MEDS: APIXABAN 5 MG TABLET PO SCH (11:19)
[2024-02-07 15:36] LABS: BUN Creatinine Ratio 20.9 (10-20); Calcium 10.7 mg/dl (8.6-10.3); Creatinine Clr Calc Pharmacy 49.5 ml/min; Est GFR (Non-African American) 34.5 ml/min; Magnesium 1.4 mg/dl (1.7-2.4); Potassium 3.7 mmol/L (3.5-5.1)
[2024-02-07] MEDS ORDERED: FUROSEMIDE 40 MG/4 ML VIAL IV SCH (17:00)
--- NOTE | 2024-02-07 17:57 | Hospitalist Progress Note ---
Date of Service February 07, 2024 Assessment & Plan (1) Atrial fibrillation with rapid ventricular response: (2) Heart failure with acute decompensation, type unknown: Plan per previous hospitalist notes with addendum: Patient went to her PCP as she has been feeling fatigued all summer. Reported to have retaining fluids in her feet and legs; has gained 40 pounds in the last 2-3 weeks. Reports increasing shortness of breath even with minor exertion. Her Fitbit noted her irregular heart rate. Her creatinine is mildly elevated to 1.25, calcium slightly elevated 10.9 BNP elevated to 378 Chest x-ray personally reviewed; reveals cardiomegaly with mild pulmonary conges tion ATRIAL FIBRILLATION IN RVR CHADSVASC 4 echo:EF 60 to 65%, mild concentric LVH, left atrium moderately dilated, mild tricuspid regurgitation, on Metoprolol 25mg QID, Heparin drip 02/05 Heart rate improving, remains in atrial fibrillation Metoprolol transition to 50 mg 3 times daily, heparin continued 02/06 Remains in A-fib, heart rate in the 70s Continue metoprolol tartrate 50 mg 3 times daily Heparin drip transition to Eliquis 5 mg twice daily Acute CHF exacerbation with preserved ejection fraction Creatinine trending up, from 1.4 currently 1.6 Patient -4.5 L output so far Hold Lasix tonight Repeat BMP tomorrow Chronic conditions; Type 2 diabetes mellitus -hold home agents. continue on insulin. Will need to stop pioglitazone Hypertensionhold lisinopril, nifedipine. Started on metoprolol. Dyslipidemiacontinue Lipitor. Aspirin currently on hold; seems to be on it for primary prevention. Full code DVT prophylaxis : Eliquis twice daily Disposition Patient would like to transition to home with home health as much as possible Admission and Anticipated Discharge Date Admission Date: February 04, 2024 Subjective Follow-up for new onset atrial fibrillation, acute CHF exacerbation, etc. Seen resting in bed, comfortable, not in distress States she feels fine overall Denies shortness of breath, palpitations, dizziness, nausea No other new symptoms Review of Systems Review of Systems: all noted and negative except for above Physical Exam Physical Exam: General- oriented x 3, not in distress, speaks in sentences with no effort or accessory muscle use Eyes- anicteric Neck- no JVD Lungs- clear breath sounds bilaterally, no rales/wheezes Heart- normal rate, Irregularly irregular rhythm; no murmurs Abdomen- normal bowel sounds, nondistended, soft, No tenderness Extremities- Grade 1-2 bilateral lower extremity edema, no calf tenderness Neuro- alert, oriented x 3; no gross focal neurologic deficits Skin- warm & dry Results & Data Results & Data Vital Signs (Past 12 Hours) Vital Signs Temp Pulse Resp BP Pulse Ox O2 Del Method 02/07/24 10:56 36.4 C L 101 H 18 128/96 96 Room Air 02/07/24 07:03 36.6 C 94 H 18 127/63 93 Room Air all noted and reviewed including below
[2024-02-07] MEDS: MAGNESIUM SULFATE / D5W 1 GM/100 ML BAG IV SCH (18:16)
[2024-02-08 07:49] LABS: BUN Creatinine Ratio 25.4 (10-20); Calcium 10.7 mg/dl (8.6-10.3); Creatinine Clr Calc Pharmacy 56.4 ml/min; Est GFR (African American) 46.8 ml/min; Est GFR (Non-African American) 40.4 ml/min; Potassium 3.7 mmol/L (3.5-5.1)
--- NOTE | 2024-02-08 08:02 | Hospitalist Progress Note ---
Date of Service February 08, 2024 Assessment & Plan (1) Atrial fibrillation with rapid ventricular response: (2) Heart failure with acute decompensation, type unknown: Plan per previous hospitalist notes with addendum: Patient went to her PCP as she has been feeling fatigued all summer. Reported to have retaining fluids in her feet and legs; has gained 40 pounds in the last 2-3 weeks. Reports increasing shortness of breath even with minor exertion. Her Fitbit noted her irregular heart rate. Her creatinine is mildly elevated to 1.25, calcium slightly elevated 10.9 BNP elevated to 378 Chest x-ray personally reviewed; reveals cardiomegaly with mild pulmonary conges tion ATRIAL FIBRILLATION IN RVR CHADSVASC 4 echo:EF 60 to 65%, mild concentric LVH, left atrium moderately dilated, mild tricuspid regurgitation, on Metoprolol 25mg QID, Heparin drip 02/05 Heart rate improving, remains in atrial fibrillation Metoprolol transition to 50 mg 3 times daily, heparin continued 02/06 Remains in A-fib, heart rate in the 70s Continue metoprolol tartrate 50 mg 3 times daily Heparin drip transition to Eliquis 5 mg twice daily 02/07 required IV Metoprolol 5mg earlier for RVR monitor closely Acute CHF exacerbation with preserved ejection fraction Acute diastolic CHF Creatinine trending up, from 1.4 currently 1.6 Patient -4.5 L output so far Hold Lasix tonight Repeat BMP tomorrow 02/07 Crea improved to 1.3 reduce Lasix to 40mg IV BID monitor renal function Chronic conditions; Type 2 diabetes mellitus -hold home agents. continue on insulin. Will need to stop pioglitazone Hypertensionhold lisinopril, nifedipine. Started on metoprolol. Dyslipidemiacontinue Lipitor. Aspirin currently on hold; seems to be on it for primary prevention. Full code DVT prophylaxis : Eliquis twice daily Disposition Patient would like to transition to home with home health as much as possible Admission and Anticipated Discharge Date Admission Date: February 04, 2024 Subjective ff up for a fib etc went into SVT/A fib HR 170s while in the bathroom earlier in AM seen resting in bedside chair, comfortable states she did not have any symptoms during the event earlier no chest pain, dyspnea, palpitations, dizziness on exam no other symptoms Review of Systems Review of Systems: all noted and negative except for above Physical Exam Physical Exam: General- oriented x 3, not in distress, speaks in sentences with no effort or accessory muscle use Eyes- anicteric Neck- no JVD Lungs- clear breath sounds bilaterally, no crackles/wheezing Heart- normal rate, irregularly irregular rhythm; no murmurs Abdomen- normal bowel sounds, nondistended, soft, nontender Extremities- gr 1-2 pretibial edema, no calf tenderness Neuro- alert, oriented x 3; no gross focal neurologic deficits Skin- warm & dry Results & Data Results & Data Vital Signs (Past 12 Hours) Vital Signs Temp Pulse Pulse Resp BP Pulse Ox O2 Del Method 02/08/24 07:34 36.6 C 90 18 127/87 93 Room Air 02/08/24 05:07 36.5 C 97 H 17 119/79 94 Room Air 02/07/24 22:42 36.4 C L 85 18 128/84 94 Room Air 02/07/24 21:47 97 H 02/07/24 20:08 36.4 C L 117 H 17 124/77 95 Room Air all noted and reviewed including below
[2024-02-08] MEDS ORDERED: METOPROLOL TARTRATE 1 MG/ML VIAL IV PRN (09:00)
[2024-02-08 09:07] LABS: Magnesium 1.6 mg/dl (1.7-2.4)
[2024-02-08] MEDS: METOPROLOL TARTRATE 1 MG/ML VIAL IV ONE (09:11)
[2024-02-08] MEDS: METOPROLOL TARTRATE 1 MG/ML VIAL IV STA (09:51)
[2024-02-08] MEDS: MAGNESIUM SULFATE / D5W 1 GM/100 ML BAG IV ONE (10:31)
[2024-02-08] MEDS: FUROSEMIDE 40 MG/4 ML VIAL IV SCH (10:36)
--- NOTE | 2024-02-08 11:09 | Cardiology Progress Note ---
<Statement entered by Taylor Miller, - 02/08/24 16:24> I have reviewed the advanced practitioner's documentation and agree with the plan of care. I accept the responsibility for the associated risk. 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 Date of Service February 08, 2024 Assessment & Plan (1) Atrial fibrillation with rapid ventricular response: (2) Heart failure with acute decompensation, type unknown: Plan Assessment: 73 year-old female presents with acute HF symptoms progressively worsening over the past 2-3 months with new onset atrial fibrillation with RVR. Plan: -Patient remains in atrial fibrillation with rates 100-120bpm. She denies any active palpitations making it difficult to determine if she has had A-fib and in particular elevated rates for a long period of time. -Denies any prior cardiac history other being told she had a "innocent murmur" as a child. -Obtain echocardiogram to assess overall structure and function as well as any evidence to suggest etiology for her symptoms. -Continue to monitor on telemetry. Continue Metoprolol tartrate 25mg Q6H. Will discuss further titration pending echocardiogram results for better rate control. -patient is diuresing well. Continue Furosemide 40mg IV BID. -maintain strict I&O, daily weights, chair or standing scale if possible. -maintain serum K> 4.0 and serum mag greater than 2.0 -Provide CHF teaching. -Close monitoring of renal function. -[id number] score of 4 (CHF, age 65-74, gender, diabetic). Continue Heparin gtt at this time, will consider transition to PO oral anticoagulation possibly with Eliquis pending echocardiogram and cost affordability. Recommend this is checked with case management. - Will reassess volume status in the AM. 02/06/2024: -Patient showing clinical improvement since time of admission, remains volume overloaded. - Negative 3 kg weight reduction and currently -1000cc fluid balance. -Continue Furosemide 40mg IV BID -HR remains elevated, will change Metoprolol tartrate dosing to 50mg PO TID. -Continue to monitor on telemetry. -maintain strict I&O, daily weights, chair or standing scale if possible. -maintain serum K> 4.0 and serum mag greater than 2.0 -Provide CHF teaching. -Close monitoring of renal function. -[id number] score of 4 (CHF, age 65-74, gender, diabetic). Continue Heparin gtt at this time, will consider transition to PO oral anticoagulation with Eliquis. -Will reassess fluid status in the AM 02/07/2024: -Slight improvement in patient's resting heart rate. Continue Metoprolol tartrate 50mg PO TID. -Patient continues to diurese well, but remains hypervolemic. Continue Furosemide 40mg IV BID -5kg weight reduction per I&O record. -Continue to monitor on telemetry. -maintain strict I&O, daily weights, chair or standing scale if possible. -maintain serum K> 4.0 and serum mag greater than 2.0 -Provide CHF teaching. -Close monitoring of renal function. -[id number] score of 4 (CHF, age 65-74, gender, diabetic). Stop Heparin gtt in favor of starting Eliquis 5mg PO BID. -Encourage patient to elevate legs while in bed or in recliner. Would recommend use of compression wraps to assist in mobilizing fluid. -Reassess fluid status in the AM. 02/08/24 -BP currently well controlled -HR are trending down -continue to replete Mg, recommend maintaining above 2.0 - still appears volume overloaded on exam we will give 1 time dose metolazone - continue IV Lasix 40 mg twice daily - we will transitioned to extended-release metoprolol for better control of heart rates, will start Toprol 50 mg twice daily - denies any previous diagnosis of obstructive sleep apnea we will need this worked up as an outpatient - if renal function improves could also consider adding spironolactone/ digoxin for right-sided heart failure Case has been discussed with Dr. Miller, see her attestation for additional recommendations. CINDY Evangelista [facility] Cardiology Admission and Anticipated Discharge Date Admission Date: February 04, 2024 Subjective 73 year old female seen in cardiology follow up in regard to new A Fib with RVR. continues to feel that she was volume overloaded with peripheral edema. does get short of breath on exertion but recovers with rest. is starting to have some loose bowel movements but denies any dark tarry stools or melena. Review of Systems Review of Systems: All systems reviewed & are unremarkable except as noted in Subjective Physical Exam Constitutional: WD/WN, vitals as above well developed, well nourished and + obese; no acute distress Respiratory: normal respiratory effort, lungs clear to auscultation Cardiovascular: Rate/Rhythm: + tachycardic and + irregularly irregular Vessels: no JVD Extremities: + edema Gastrointestinal (Abdomen): normal bowel sounds, soft, nontender, no hepatosplenomegaly Skin: no rashes, warm and dry Psychiatric: A+Ox3, euthymic affect Results & Data Vital Signs (Past 12 Hours) Vital Signs Temp Pulse Pulse Resp BP BP Pulse Ox 02/08/24 10:57 36.7 C 81 18 132/87 91 02/08/24 09:26 110 H 120/90 02/08/24 09:11 118 H 112/81 02/08/24 07:34 36.6 C 90 18 127/87 93 02/08/24 05:07 36.5 C 97 H 17 119/79 94 O2 Del Method 02/08/24 10:57 Room Air 02/08/24 09:26 02/08/24 09:11 02/08/24 07:34 Room Air 02/08/24 05:07 Room Air Laboratory Results Laboratory Results WBC 6.63 K/ul (4.8-10.8) 02/06/24 06:07 RBC 4.14 M/uL (4.20-5.40) L 02/06/24 06:07 Hgb 12.3 g/dl (12.0-16.0) 02/06/24 06:07 Hct 36.9 % (37.0-47.0) L 02/06/24 06:07 MCV 89.1 fL (80.0-100.0) 02/06/24 06:07 MCH 29.7 pg (25.0-34.0) 02/06/24 06:07 MCHC 33.3 g/dL (32.0-36.0) 02/06/24 06:07 RDW Std Deviation 51.8 fL (36.4-46.3) H 02/06/24 06:07 RDW Coeff of Cecile 15.9 % (11.5-14.5) H 02/06/24 06:07 Plt Count 279 K/uL (130-400) 02/06/24 06:07 MPV 9.9 fL (9.4-12.4) 02/06/24 06:07 Immature Gran % (Auto) 0.6 % 02/04/24 16:10 Neut % (Auto) 79.1 % 02/04/24 16:10 Lymph % (Auto) 11.9 % 02/04/24 16:10 [place] % (Auto) 5.8 % 02/04/24 16:10 Eos % (Auto) 2.2 % 02/04/24 16:10 Baso % (Auto) 0.4 % 02/04/24 16:10 Neut # (Auto) 5.63 K/uL (1.40-6.50) 02/04/24 16:10 Lymph # (Auto) 0.85 K/uL (1.20-3.40) L 02/04/24 16:10 [place] # (Auto) 0.41 K/uL (0.11-0.59) 02/04/24 16:10 Eos # (Auto) 0.16 K/uL (0.00-0.50) 02/04/24 16:10 Baso # (Auto) 0.03 K/uL (0.00-0.20) 02/04/24 16:10 Immature Gran # (Auto) 0.04 K/uL (0.01-0.20) 02/04/24 16:10 PT 11.5 Seconds (9.0-12.0) 02/04/24 16:10 INR 1.1 (0.9-1.1) 02/04/24 16:10 APTT 26 Seconds (21-31) 02/04/24 16:10 PTT Ratio 1.0 02/04/24 16:10 Heparin Anti-Xa, Unfract 0.34 IU/ml (0.3-0.7) 02/07/24 05:50 Sodium 139 mmol/L (136-145) 02/08/24 06:34 Potassium 3.7 mmol/L (3.5-5.1) 02/08/24 06:34 Chloride 99 mmol/L (98-107) 02/08/24 06:34 Carbon Dioxide 30 mmol/L (21-32) 02/08/24 06:34 Anion Gap 10 (3-11) 02/08/24 06:34 BUN 33 mg/dl (6-23) H 02/08/24 06:34 Creatinine 1.30 mg/dl (0.6-1.2) H 02/08/24 06:34 Est Cr Clr Drug Dosing 56.4 ml/min 02/08/24 06:34 Est GFR ( Amer) 46.8 ml/min 02/08/24 06:34 Est GFR (Non-Af Amer) 40.4 ml/min 02/08/24 06:34 BUN/Creatinine Ratio 25.4 (10-20) H 02/08/24 06:34 Glucose 92 mg/dl (70-99(Fasting)) 02/08/24 06:34 POC Glucose 90 mg/dl (70-99) 02/08/24 07:15 Estimat Average Glucose 163 mg/dl 02/05/24 02:08 Hemoglobin A1c 7.3 % (4.5-5.6) H 02/05/24 02:08 Calcium 10.7 mg/dl (8.6-10.3) H 02/08/24 06:34 Magnesium 1.6 mg/dl (1.7-2.4) L 02/08/24 06:34 Total Bilirubin 0.6 mg/dl (0.2-1.0) 02/04/24 16:10 AST 10 U/L (13-39) L 02/04/24 16:10 ALT 8 U/L (7-52) 02/04/24 16:10 Alkaline Phosphatase 88 U/L (34-104) 02/04/24 16:10 Troponin I High Sens 6.1 pg/ml (0-14) 02/04/24 16:10 B-Natriuretic Peptide 378 pg/ml (0-100) H 02/04/24 16:10 Total Protein 7.2 gm/dl (6.0-8.3) 02/04/24 16:10 Albumin 4.0 gm/dl (3.4-5.0) 02/04/24 16:10 Globulin 3.2 gm/dl (2.5-4.0) 02/04/24 16:10 Albumin/Globulin Ratio 1.3 (0.9-2) 02/04/24 16:10 TSH 7.229 uIu/ml (0.300-4.500) H 02/04/24 16:10 Free T4 1.15 ng/dl (0.61-1.60) 02/04/24 16:10 SARS-CoV-2 (PCR) NEGATIVE (Negative) 02/04/24 16:10 Influenza Type A (PCR) Negative (Neg) 02/04/24 16:10 Influenza Type B (PCR) Negative (Neg) 02/04/24 16:10 RSV (RT-PCR) Negative (Neg) 02/04/24 16:10 Impressions Chest X-Ray 02/04/24 16:07 XR chest 1V portable CLINICAL HISTORY: Chest pain, nonspecific TECHNIQUE: Single frontal radiograph of the chest was obtained. Comparison: None available at the time of this dictation. FINDINGS: Exam is limited by underpenetration. Cardiomegaly is noted. The lungs are clear. No evidence of pleural effusion or pneumothorax. IMPRESSION: No acute chest disease. Cardiomegaly is noted. ACT 112: Negative or not required by law. Electronically signed by: Sunny Dennison M.D. 02/04/2024 4:54 PM Medications Administered Current Inpatient Medications Acetaminophen (Acetaminophen 325 Mg Tab) 650 mg PO Q4H PRN PRN Reason: Pain or Fever Stop: 03/05/24 21:17 Apixaban (Apixaban 5 Mg Tablet) 5 mg PO BID AFUA Stop: 03/08/24 10:44 Last Admin: 02/08/24 08:33 Dose: 5 mg Atorvastatin Calcium (Atorvastatin 40 Mg Tab) 40 mg PO QAM AFUA Stop: 03/06/24 08:59 Last Admin: 02/08/24 08:34 Dose: 40 mg Dextrose (Dextrose 50% 50 Ml Syringe) 25 - 50 ml IV UD PRN; Protocol PRN Reason: Hypoglycemia Protocol Stop: 03/05/24 18:03 Furosemide (Furosemide 40 Mg/4 Ml Vial) 40 mg IV Q12H AFUA Stop: 03/09/24 09:59 Last Admin: 02/08/24 10:36 Dose: 40 mg Glucagon (Glucagon For Inj 1 Mg Vial) 1 mg SQ UD PRN; Protocol PRN Reason: Hypoglycemia Protocol Stop: 03/05/24 18:03 Glucose (Glucose 40% Gel 15 Gm Tube) 15 - 30 gm PO UD PRN; Protocol PRN Reason: Hypoglycemia Protocol Stop: 03/05/24 18:03 Glucose (Glucose 10 Tab/Tube) 4 - 8 tab PO UD PRN; Protocol PRN Reason: Hypoglycemia Treatment Stop: 03/05/24 18:03 Guaifenesin (Guaifenesin 600 Mg Tabcr) 600 mg PO Q12 AFUA Stop: 03/07/24 11:54 Last Admin: 02/08/24 08:34 Dose: 600 mg Magnesium Sulfate/Dextrose (Magnesium Sulfate / D5w) 1 gm in 100 mls @ 50 mls/hr IV ONE ONE Stop: 02/08/24 11:13 Last Admin: 02/08/24 10:31 Dose: 50 mls/hr Insulin Aspart (Insulin Aspart Per Unit Charge) 0 units SC ACHS AFUA Stop: 03/05/24 18:04 Last Admin: 02/08/24 08:35 Dose: Not Given Magnesium Oxide (Magnesium Oxide 400 Mg Tab) 400 mg PO DAILY AFUA Stop: 03/06/24 08:59 Last Admin: 02/08/24 08:33 Dose: 400 mg Metoprolol Tartrate (Metoprolol Tartrate 50 Mg Tab) 50 mg PO TID AFUA Stop: 03/07/24 20:59 Last Admin: 02/08/24 08:32 Dose: 50 mg Metoprolol Tartrate (Metoprolol Tartrate 1 Mg/Ml Vial) 5 mg IV Q4 PRN PRN Reason: HR > 110 Stop: 03/09/24 11:59 Miscellaneous (Carbohydrates For Hypoglycemia ) 15 - 30 gm PO UD PRN PRN Reason: Hypoglycemia Protocol Stop: 03/05/24 18:03 Ondansetron HCl (Ondansetron Inj 2 Mg/Ml 2 Ml Vial) 4 mg IV Q6H PRN PRN Reason: Nausea Stop: 03/05/24 21:17 Polyethylene Glycol (Polyethylene (Miralax) 17 Gm Pack) 17 gm PO DAILY PRN PRN Reason: Constipation Stop: 03/05/24 21:17 Vitamin D (Cholecalciferol 25 Mcg (1000 Units) Tab) 50 mcg PO QAM [facility] Stop: 03/06/24 08:59 Last Admin: 02/08/24 08:33 Dose: 50 mcg
[2024-02-08] MEDS: metOLazone 2.5 MG TABLET PO ONE (16:39)
[2024-02-08] MEDS: POTASSIUM CHLORIDE CRTAB 20 MEQ TABCR PO STA (16:39)
[2024-02-08] MEDS: METOPROLOL SUCC 50MG EXT REL TAB PO SCH (21:27)
[2024-02-09 07:41] LABS: BUN Creatinine Ratio 27.7 (10-20); Calcium 11.5 mg/dl (8.6-10.3); Creatinine Clr Calc Pharmacy 54.8 ml/min; Est GFR (African American) 46.8 ml/min; Est GFR (Non-African American) 40.4 ml/min; Magnesium 1.5 mg/dl (1.7-2.4); Potassium 3.8 mmol/L (3.5-5.1)
[2024-02-09] MEDS ORDERED: MAGNESIUM CHLORIDE W/CALCIUM 64MG DELAYED REL TAB PO SCH (12:00)
[2024-02-09] MEDS: MAGNESIUM SULFATE / D5W 1 GM/100 ML BAG IV ONE (12:29)
--- NOTE | 2024-02-09 15:23 | Cardiology Progress Note ---
<Statement entered by Taylor Miller, - 02/09/24 18:16> I have reviewed the advanced practitioner's documentation and agree with the plan of care. I accept the responsibility for the associated risk. Pt seen in cardiology f/u due to acute on chronic heart failure with preserved EF due to diastolic dysfunction NYHA Class III She responded to the metolazone and kidney function is stable but she is still not at her base weight I would give another dose of metolazone today in addition to her IV lasix BID She will probably benefit from torsemide upon discharge Continue to monitor daily weights and kidney function and I/Os hopefully she can be transitioned to oral diuretics in next 48 hours Date of Service February 09, 2024 Assessment & Plan (1) Atrial fibrillation with rapid ventricular response: (2) Heart failure with acute decompensation, type unknown: Plan Assessment: 73 year-old female presents with acute HF symptoms progressively worsening over the past 2-3 months with new onset atrial fibrillation with RVR. Plan: -Patient remains in atrial fibrillation with rates 100-120bpm. She denies any active palpitations making it difficult to determine if she has had A-fib and in particular elevated rates for a long period of time. -Denies any prior cardiac history other being told she had a "innocent murmur" as a child. -Obtain echocardiogram to assess overall structure and function as well as any evidence to suggest etiology for her symptoms. -Continue to monitor on telemetry. Continue Metoprolol tartrate 25mg Q6H. Will discuss further titration pending echocardiogram results for better rate control. -patient is diuresing well. Continue Furosemide 40mg IV BID. -maintain strict I&O, daily weights, chair or standing scale if possible. -maintain serum K> 4.0 and serum mag greater than 2.0 -Provide CHF teaching. -Close monitoring of renal function. -[id number] score of 4 (CHF, age 65-74, gender, diabetic). Continue Heparin gtt at this time, will consider transition to PO oral anticoagulation possibly with Eliquis pending echocardiogram and cost affordability. Recommend this is checked with case management. - Will reassess volume status in the AM. 02/06/2024: -Patient showing clinical improvement since time of admission, remains volume overloaded. - Negative 3 kg weight reduction and currently -1000cc fluid balance. -Continue Furosemide 40mg IV BID -HR remains elevated, will change Metoprolol tartrate dosing to 50mg PO TID. -Continue to monitor on telemetry. -maintain strict I&O, daily weights, chair or standing scale if possible. -maintain serum K> 4.0 and serum mag greater than 2.0 -Provide CHF teaching. -Close monitoring of renal function. -[id number] score of 4 (CHF, age 65-74, gender, diabetic). Continue Heparin gtt at this time, will consider transition to PO oral anticoagulation with Eliquis. -Will reassess fluid status in the AM 02/07/2024: -Slight improvement in patient's resting heart rate. Continue Metoprolol ta rtrate 50mg PO TID. -Patient continues to diurese well, but remains hypervolemic. Continue Furosemide 40mg IV BID -5kg weight reduction per I&O record. -Continue to monitor on telemetry. -maintain strict I&O, daily weights, chair or standing scale if possible. -maintain serum K> 4.0 and serum mag greater than 2.0 -Provide CHF teaching. -Close monitoring of renal function. -[id number] score of 4 (CHF, age 65-74, gender, diabetic). Stop Heparin gtt in favor of starting Eliquis 5mg PO BID. -Encourage patient to elevate legs while in bed or in recliner. Would recommend use of compression wraps to assist in mobilizing fluid. -Reassess fluid status in the AM. 02/08/24 -BP currently well controlled -HR are trending down -continue to replete Mg, recommend maintaining above 2.0 - still appears volume overloaded on exam we will give 1 time dose metolazone - continue IV Lasix 40 mg twice daily - we will transitioned to extended-release metoprolol for better control of heart rates, will start Toprol 50 mg twice daily - denies any previous diagnosis of obstructive sleep apnea we will need this worked up as an outpatient - if renal function improves could also consider adding spironolactone/digoxin for right-sided heart failure 02/09/24 -HR has improved -BP well controlled -renal function stable -weight trended down 14 lbs over the past 2 days -still feels that she is fluid overloaded -continue to replete Mg, recommend maintaining above 2.0 -maintain strict I&O, daily weights, chair or standing scale if possible -low Na diet -continue Toprol, apixaban -continue IV lasix, will give additional dose of metolazone today - denies any previous diagnosis of obstructive sleep apnea we will need this worked up as an outpatient - if renal function improves could also consider adding spironolactone/digoxin for right-sided heart failure Case has been discussed with Dr. Miller, see her attestation for additional recommendations. CINDY Evangelista [facility] Cardiology Admission and Anticipated Discharge Date Admission Date: February 04, 2024 Subjective 73 year old female seen in cardiology follow up in regard to new A Fib with RVR. Continues to feel better each day. Weights continue to downtrend. Review of Systems Review of Systems: All systems reviewed & are unremarkable except as noted in Subjective Physical Exam Constitutional: WD/WN, vitals as above well developed, well nourished and + obese Neck: trachea midline, no thyromegaly Respiratory: normal respiratory effort; no respiratory distress and no labored breathing Auscultation: + diminished lung sounds Cardiovascular: Rate/Rhythm: regular rate and + irregularly irregular Heart Sounds: + murmur Extremities: + edema Gastrointestinal (Abdomen): normal bowel sounds, soft, nontender, no hepatosplenomegaly Skin: no rashes, warm and dry Psychiatric: A+Ox3, euthymic affect Results & Data Vital Signs (Past 12 Hours) Vital Signs Temp Pulse Pulse Resp BP Pulse Ox O2 Del Method 02/09/24 11:13 36.4 C L 72 18 126/74 94 Room Air 02/09/24 07:24 36.5 C 92 H 18 109/65 93 Room Air 02/09/24 07:22 106 H 02/09/24 03:47 36.8 C 92 H 18 112/62 92 Room Air Laboratory Results Laboratory Results WBC 6.63 K/ul (4.8-10.8) 02/06/24 06:07 RBC 4.14 M/uL (4.20-5.40) L 02/06/24 06:07 Hgb 12.3 g/dl (12.0-16.0) 02/06/24 06:07 Hct 36.9 % (37.0-47.0) L 02/06/24 06:07 MCV 89.1 fL (80.0-100.0) 02/06/24 06:07 MCH 29.7 pg (25.0-34.0) 02/06/24 06:07 MCHC 33.3 g/dL (32.0-36.0) 02/06/24 06:07 RDW Std Deviation 51.8 fL (36.4-46.3) H 02/06/24 06:07 RDW Coeff of Cecile 15.9 % (11.5-14.5) H 02/06/24 06:07 Plt Count 279 K/uL (130-400) 02/06/24 06:07 MPV 9.9 fL (9.4-12.4) 02/06/24 06:07 Immature Gran % (Auto) 0.6 % 02/04/24 16:10 Neut % (Auto) 79.1 % 02/04/24 16:10 Lymph % (Auto) 11.9 % 02/04/24 16:10 [place] % (Auto) 5.8 % 02/04/24 16:10 Eos % (Auto) 2.2 % 02/04/24 16:10 Baso % (Auto) 0.4 % 02/04/24 16:10 Neut # (Auto) 5.63 K/uL (1.40-6.50) 02/04/24 16:10 Lymph # (Auto) 0.85 K/uL (1.20-3.40) L 02/04/24 16:10 [place] # (Auto) 0.41 K/uL (0.11-0.59) 02/04/24 16:10 Eos # (Auto) 0.16 K/uL (0.00-0.50) 02/04/24 16:10 Baso # (Auto) 0.03 K/uL (0.00-0.20) 02/04/24 16:10 Immature Gran # (Auto) 0.04 K/uL (0.01-0.20) 02/04/24 16:10 PT 11.5 Seconds (9.0-12.0) 02/04/24 16:10 INR 1.1 (0.9-1.1) 02/04/24 16:10 APTT 26 Seconds (21-31) 02/04/24 16:10 PTT Ratio 1.0 02/04/24 16:10 Heparin Anti-Xa, Unfract 0.34 IU/ml (0.3-0.7) 02/07/24 05:50 Sodium 140 mmol/L (136-145) 02/09/24 07:06 Potassium 3.8 mmol/L (3.5-5.1) 02/09/24 07:06 Chloride 98 mmol/L (98-107) 02/09/24 07:06 Carbon Dioxide 33 mmol/L (21-32) H 02/09/24 07:06 Anion Gap 9 (3-11) 02/09/24 07:06 BUN 36 mg/dl (6-23) H 02/09/24 07:06 Creatinine 1.30 mg/dl (0.6-1.2) H 02/09/24 07:06 Est Cr Clr Drug Dosing 54.8 ml/min 02/09/24 07:06 Est GFR ( Amer) 46.8 ml/min 02/09/24 07:06 Est GFR (Non-Af Amer) 40.4 ml/min 02/09/24 07:06 BUN/Creatinine Ratio 27.7 (10-20) H 02/09/24 07:06 Glucose 108 mg/dl (70-99(Fasting)) H 02/09/24 07:06 POC Glucose 109 mg/dl (70-99) H 02/09/24 11:12 Estimat Average Glucose 163 mg/dl 02/05/24 02:08 Hemoglobin A1c 7.3 % (4.5-5.6) H 02/05/24 02:08 Calcium 11.5 mg/dl (8.6-10.3) H 02/09/24 07:06 Magnesium 1.5 mg/dl (1.7-2.4) L 02/09/24 07:06 Total Bilirubin 0.6 mg/dl (0.2-1.0) 02/04/24 16:10 AST 10 U/L (13-39) L 02/04/24 16:10 ALT 8 U/L (7-52) 02/04/24 16:10 Alkaline Phosphatase 88 U/L (34-104) 02/04/24 16:10 Troponin I High Sens 6.1 pg/ml (0-14) 02/04/24 16:10 B-Natriuretic Peptide 378 pg/ml (0-100) H 02/04/24 16:10 Total Protein 7.2 gm/dl (6.0-8.3) 02/04/24 16:10 Albumin 4.0 gm/dl (3.4-5.0) 02/04/24 16:10 Globulin 3.2 gm/dl (2.5-4.0) 02/04/24 16:10 Albumin/Globulin Ratio 1.3 (0.9-2) 02/04/24 16:10 TSH 7.229 uIu/ml (0.300-4.500) H 02/04/24 16:10 Free T4 1.15 ng/dl (0.61-1.60) 02/04/24 16:10 SARS-CoV-2 (PCR) NEGATIVE (Negative) 02/04/24 16:10 Influenza Type A (PCR) Negative (Neg) 02/04/24 16:10 Influenza Type B (PCR) Negative (Neg) 02/04/24 16:10 RSV (RT-PCR) Negative (Neg) 02/04/24 16:10 Impressions Chest X-Ray 02/04/24 16:07 XR chest 1V portable CLINICAL HISTORY: Chest pain, nonspecific TECHNIQUE: Single frontal radiograph of the chest was obtained. Comparison: None available at the time of this dictation. FINDINGS: Exam is limited by underpenetration. Cardiomegaly is noted. The lungs are clear. No evidence of pleural effusion or pneumothorax. IMPRESSION: No acute chest disease. Cardiomegaly is noted. ACT 112: Negative or not required by law. Electronically signed by: Sunny Dennison M.D. 02/04/2024 4:54 PM Medications Administered Current Inpatient Medications Acetaminophen (Acetaminophen 325 Mg Tab) 650 mg PO Q4H PRN PRN Reason: Pain or Fever Stop: 03/05/24 21:17 Apixaban (Apixaban 5 Mg Tablet) 5 mg PO BID AFUA Stop: 03/08/24 10:44 Last Admin: 02/09/24 08:17 Dose: 5 mg Atorvastatin Calcium (Atorvastatin 40 Mg Tab) 40 mg PO QAM AFUA Stop: 03/06/24 08:59 Last Admin: 02/09/24 08:20 Dose: 40 mg Dextrose (Dextrose 50% 50 Ml Syringe) 25 - 50 ml IV UD PRN; Protocol PRN Reason: Hypoglycemia Protocol Stop: 03/05/24 18:03 Furosemide (Furosemide 40 Mg/4 Ml Vial) 40 mg IV Q12H AFUA Stop: 03/09/24 09:59 Last Admin: 02/09/24 10:38 Dose: 40 mg Glucagon (Glucagon For Inj 1 Mg Vial) 1 mg SQ UD PRN; Protocol PRN Reason: Hypoglycemia Protocol Stop: 03/05/24 18:03 Glucose (Glucose 40% Gel 15 Gm Tube) 15 - 30 gm PO UD PRN; Protocol PRN Reason: Hypoglycemia Protocol Stop: 03/05/24 18:03 Glucose (Glucose 10 Tab/Tube) 4 - 8 tab PO UD PRN; Protocol PRN Reason: Hypoglycemia Treatment Stop: 03/05/24 18:03 Guaifenesin (Guaifenesin 600 Mg Tabcr) 600 mg PO Q12 AFUA Stop: 03/07/24 11:54 Last Admin: 02/09/24 08:18 Dose: 600 mg Insulin Aspart (Insulin Aspart Per Unit Charge) 0 units SC ACHS AFUA Stop: 03/05/24 18:04 Last Admin: 02/09/24 12:29 Dose: 3 units Metoprolol Succinate (Metoprolol Succ 50mg Ext Rel Tab) 75 mg PO BID AFUA Stop: 03/09/24 20:59 Last Admin: 02/09/24 08:18 Dose: 75 mg Metoprolol Tartrate (Metoprolol Tartrate 1 Mg/Ml Vial) 5 mg IV Q4 PRN PRN Reason: HR > 110 Stop: 03/09/24 11:59 Miscellaneous (Carbohydrates For Hypoglycemia ) 15 - 30 gm PO UD PRN PRN Reason: Hypoglycemia Protocol Stop: 03/05/24 18:03 Ondansetron HCl (Ondansetron Inj 2 Mg/Ml 2 Ml Vial) 4 mg IV Q6H PRN PRN Reason: Nausea Stop: 03/05/24 21:17 Polyethylene Glycol (Polyethylene (Miralax) 17 Gm Pack) 17 gm PO DAILY PRN PRN Reason: Constipation Stop: 03/05/24 21:17 Vitamin D (Cholecalciferol 25 Mcg (1000 Units) Tab) 50 mcg PO QAM AFUA Stop: 03/06/24 08:59 Last Admin: 02/09/24 08:19 Dose: 50 mcg
--- NOTE | 2024-02-09 17:33 | Hospitalist Progress Note ---
Date of Service February 09, 2024 Assessment & Plan (1) Atrial fibrillation with rapid ventricular response: (2) Heart failure with acute decompensation, type unknown: Plan per previous hospitalist notes with addendum: Patient went to her PCP as she has been feeling fatigued all summer. Reported to have retaining fluids in her feet and legs; has gained 40 pounds in the last 2-3 weeks. Reports increasing shortness of breath even with minor exertion. Her Fitbit noted her irregular heart rate. Her creatinine is mildly elevated to 1.25, calcium slightly elevated 10.9 BNP elevated to 378 Chest x-ray personally reviewed; reveals cardiomegaly with mild pulmonary conges tion ATRIAL FIBRILLATION IN RVR CHADSVASC 4 echo:EF 60 to 65%, mild concentric LVH, left atrium moderately dilated, mild tricuspid regurgitation, on Metoprolol 25mg QID, Heparin drip 02/05 Heart rate improving, remains in atrial fibrillation Metoprolol transition to 50 mg 3 times daily, heparin continued 02/06 Remains in A-fib, heart rate in the 70s Continue metoprolol tartrate 50 mg 3 times daily Heparin drip transition to Eliquis 5 mg twice daily 02/07 required IV Metoprolol 5mg earlier for RVR monitor closely 02/08 Transition to Toprol XL 75 mg twice daily Heart rate seems to be stable so far Monitor closely Acute CHF exacerbation with preserved ejection fraction Acute diastolic CHF Creatinine trending up, from 1.4 currently 1.6 Patient -4.5 L output so far Hold Lasix tonight Repeat BMP tomorrow 02/07 Crea improved to 1.3 reduce Lasix to 40mg IV BID monitor renal function 02/08 Continues to diurese Creatinine stable at 1.3 Continue Lasix 40 mg IV twice daily Chronic conditions; Type 2 diabetes mellitus -hold home agents. continue on insulin. Will need to stop pioglitazone Hypertensionhold lisinopril, nifedipine. Started on metoprolol. Dyslipidemiacontinue Lipitor. Aspirin currently on hold; seems to be on it for primary prevention. Full code DVT prophylaxis : Eliquis twice daily Disposition Patient would like to transition to home with home health as much as possible Admission and Anticipated Discharge Date Admission Date: February 04, 2024 Subjective Follow-up for A-fib, etc. Seen resting in bed, comfortable, not distressed States she feels fine overall No chest pain, palpitations, dizziness No other new symptoms Review of Systems Review of Systems: all noted and negative except for above Physical Exam Physical Exam: General- oriented x 3, not in distress, speaks in sentences with no effort or accessory muscle use Eyes- anicteric Neck- no JVD Lungs- clear breath sounds bilaterally, no rales/wheezes Heart- normal rate, Irregularly irregular rhythm; no murmurs Abdomen- normal bowel sounds, nondistended, soft, nontender Extremities- grade 1 -2 pretibial edema, no calf tenderness Neuro- alert, oriented x 3; no gross focal neurologic deficits Skin- warm & dry Results & Data Results & Data Vital Signs (Past 12 Hours) Vital Signs Temp Pulse Pulse Resp BP Pulse Ox O2 Del Method 02/09/24 16:11 36.5 C 83 18 117/73 94 Room Air 02/09/24 15:50 94 H 02/09/24 11:13 36.4 C L 72 18 126/74 94 Room Air 02/09/24 07:24 36.5 C 92 H 18 109/65 93 Room Air 02/09/24 07:22 106 H
[2024-02-09] MEDS: metOLazone 2.5 MG TABLET PO ONE (18:34)
--- NOTE | 2024-02-09 18:47 | Hospitalist Progress Note ---
Date of Service February 09, 2024 Assessment & Plan (1) Atrial fibrillation with rapid ventricular response: (2) Heart failure with acute decompensation, type unknown: Plan per previous hospitalist notes with addendum: Patient went to her PCP as she has been feeling fatigued all summer. Reported to have retaining fluids in her feet and legs; has gained 40 pounds in the last 2-3 weeks. Reports increasing shortness of breath even with minor exertion. Her Fitbit noted her irregular heart rate. Her creatinine is mildly elevated to 1.25, calcium slightly elevated 10.9 BNP elevated to 378 Chest x-ray personally reviewed; reveals cardiomegaly with mild pulmonary conges tion ATRIAL FIBRILLATION IN RVR CHADSVASC 4 echo:EF 60 to 65%, mild concentric LVH, left atrium moderately dilated, mild tricuspid regurgitation, on Metoprolol 25mg QID, Heparin drip 02/05 Heart rate improving, remains in atrial fibrillation Metoprolol transition to 50 mg 3 times daily, heparin continued 02/06 Remains in A-fib, heart rate in the 70s Continue metoprolol tartrate 50 mg 3 times daily Heparin drip transition to Eliquis 5 mg twice daily 02/07 required IV Metoprolol 5mg earlier for RVR monitor closely 02/08 Transition to Toprol XL 75 mg twice daily Heart rate seems to be stable so far Monitor closely Acute CHF exacerbation with preserved ejection fraction Acute diastolic CHF Creatinine trending up, from 1.4 currently 1.6 Patient -4.5 L output so far Hold Lasix tonight Repeat BMP tomorrow 02/07 Crea improved to 1.3 reduce Lasix to 40mg IV BID monitor renal function 02/08 Continues to diurese Creatinine stable at 1.3 Continue Lasix 40 mg IV twice daily Chronic conditions; Type 2 diabetes mellitus -hold home agents. continue on insulin. Will need to stop pioglitazone Hypertensionhold lisinopril, nifedipine. Started on metoprolol. Dyslipidemiacontinue Lipitor. Aspirin currently on hold; seems to be on it for primary prevention. Full code DVT prophylaxis : Eliquis twice daily Disposition Patient would like to transition to home with home health as much as possible Admission and Anticipated Discharge Date Admission Date: February 04, 2024 Results & Data Results & Data Vital Signs (Past 12 Hours) Vital Signs Temp Pulse Pulse Resp BP Pulse Ox O2 Del Method 02/09/24 16:11 36.5 C 83 18 117/73 94 Room Air 02/09/24 15:50 94 H 02/09/24 11:13 36.4 C L 72 18 126/74 94 Room Air 02/09/24 07:24 36.5 C 92 H 18 109/65 93 Room Air 02/09/24 07:22 106 H
[2024-02-10 06:53] LABS: BUN Creatinine Ratio 27.2 (10-20); Calcium 11.5 mg/dl (8.6-10.3); Creatinine Clr Calc Pharmacy 47.8 ml/min; Est GFR (African American) 40.3 ml/min; Est GFR (Non-African American) 34.8 ml/min; Magnesium 1.5 mg/dl (1.7-2.4); Potassium 3.5 mmol/L (3.5-5.1)
[2024-02-10] MEDS: MAGNESIUM SULFATE / D5W 1 GM/100 ML BAG IV ONE (08:31)
--- NOTE | 2024-02-10 08:54 | Cardiology Progress Note ---
Date of Service February 10, 2024 Assessment & Plan (1) Atrial fibrillation with rapid ventricular response: (2) Heart failure with acute decompensation, type unknown: Plan Assessment: 73 year-old female presents with acute HF symptoms progressively worsening over the past 2-3 months with new onset atrial fibrillation with RVR. Plan: -Patient remains in atrial fibrillation with rates 100-120bpm. She denies any active palpitations making it difficult to determine if she has had A-fib and in particular elevated rates for a long period of time. -Denies any prior cardiac history other being told she had a "innocent murmur" as a child. -Obtain echocardiogram to assess overall structure and function as well as any evidence to suggest etiology for her symptoms. -Continue to monitor on telemetry. Continue Metoprolol tartrate 25mg Q6H. Will discuss further titration pending echocardiogram results for better rate control. -patient is diuresing well. Continue Furosemide 40mg IV BID. -maintain strict I&O, daily weights, chair or standing scale if possible. -maintain serum K> 4.0 and serum mag greater than 2.0 -Provide CHF teaching. -Close monitoring of renal function. -[id number] score of 4 (CHF, age 65-74, gender, diabetic). Continue Heparin gtt at this time, will consider transition to PO oral anticoagulation possibly with Eliquis pending echocardiogram and cost affordability. Recommend this is checked with case management. - Will reassess volume status in the AM. 02/06/2024: -Patient showing clinical improvement since time of admission, remains volume overloaded. - Negative 3 kg weight reduction and currently -1000cc fluid balance. -Continue Furosemide 40mg IV BID -HR remains elevated, will change Metoprolol tartrate dosing to 50mg PO TID. -Continue to monitor on telemetry. -maintain strict I&O, daily weights, chair or standing scale if possible. -maintain serum K> 4.0 and serum mag greater than 2.0 -Provide CHF teaching. -Close monitoring of renal function. -[id number] score of 4 (CHF, age 65-74, gender, diabetic). Continue Heparin gtt at this time, will consider transition to PO oral anticoagulation with Eliquis. -Will reassess fluid status in the AM 02/07/2024: -Slight improvement in patient's resting heart rate. Continue Metoprolol tartrate 50mg PO TID. -Patient continues to diurese well, but remains hypervolemic. Continue Furosemide 40mg IV BID -5kg weight reduction per I&O record. -Continue to monitor on telemetry. -maintain strict I&O, daily weights, chair or standing scale if possible. -maintain serum K> 4.0 and serum mag greater than 2.0 -Provide CHF teaching. -Close monitoring of renal function. -[id number] score of 4 (CHF, age 65-74, gender, diabetic). Stop Heparin gtt in favor of starting Eliquis 5mg PO BID. -Encourage patient to elevate legs while in bed or in recliner. Would recommend use of compression wraps to assist in mobilizing fluid. -Reassess fluid status in the AM. 02/08/24 -BP currently well controlled -HR are trending down -continue to replete Mg, recommend maintaining above 2.0 - still appears volume overloaded on exam we will give 1 time dose metolazone - continue IV Lasix 40 mg twice daily - we will transitioned to extended-release metoprolol for better control of heart rates, will start Toprol 50 mg twice daily - denies any previous diagnosis of obstructive sleep apnea we will need this worked up as an outpatient - if renal function improves could also consider adding spironolactone/digoxin for right-sided heart failure 02/09/24 -HR has improved -BP well controlled -renal function stable -weight trended down 14 lbs over the past 2 days -still feels that she is fluid overloaded -continue to replete Mg, recommend maintaining above 2.0 -maintain strict I&O, daily weights, chair or standing scale if possible -low Na diet -continue Toprol, apixaban -continue IV lasix, will give additional dose of metolazone today - denies any previous diagnosis of obstructive sleep apnea we will need this worked up as an outpatient - if renal function improves could also consider adding spironolactone/digoxin for right-sided heart failure 02/10/2024: -Heart rates continue to improve. Continue Toprol xl 75mg PO BID -While fluid status continues to improve, remains volume overloaded. Renal function remains stable and patient has responded well to intermittent doses of Metolazone. -Weights continue to trend down. -23 kg per I&O report which may not be accurate. Currently negative 4L fluid balance. -Will increase Furosemide from 40mg IV BID to TID -Agree with IV magnesium supplementation as well as PO supplementation. -Monitor renal function and Electrolytes closely. -Goal serum Mag > 2.0 and Serum K > 4.0 -Reinforce CHF teaching. Strict I&Os, daily weight, 1500ml fluid restriction and less than 2G sodium intake daily -Encourage use of brynn wraps for compression while elevating legs to assist in fluid mobilization. -Will need sleep study work up outpatient -Recommend overnight pulse oximetry study while in the hospital if renal function improves could also consider adding spironolactone/digoxin for right-sided heart failure. Case has been discussed with Dr. Polanco. Further recommendations regarding plan of care as per his assessment. I spent a total of 30 minutes on the date of service in preparation, delivery, documentation of the care provided to the patient excluding any time spent in the performance of separately billed services. CINDY Vazquez [facility] Admission and Anticipated Discharge Date Admission Date: February 04, 2024 Supervising Physician Co-Signing Physician Notes Patient was seen and personally examined, chart, medications telemetry reviewed. Care management discussed with advanced provider as above 73-year-old female with acute on chronic heart failure with preserved ejection fraction right greater than left. Evidence of pulmonary hypertension by indirect measurement possible pickwickian etiology. Atrial fibrillation with elevated ventricular response rate Has responded to diuretics but still with significant right greater than left heart failure Plan: As above increase IV furosemide to 3 times daily dosing increase metoprolol succinate to 100 mg twice per day for further heart rate control Recommend nocturnal oximetry while in hospital Renal function currently limiting the use of spironolactone . Patient previously on Jardiance prior to hospitalization May need to consider renewal depending on renal course Subjective 02/10/24: Patient seen and examined in follow up today. Feeling well. she continues with lower extremity swelling, but states it is remarkably better than prior to admission. Daily weights continue to trend down. Denies any chest pain, pressure palpitations, no pre-syncope, or syncope. currently resting comfortably out of bed in a chair with legs elevated. Per I&O records admission weight 166kg, today's weight 143.6kg -4L fluid balance. Labs, vitals, diagnostics, telemetry and documentation reviewed. Telemetry reviewed showing Atrial fibrillation, rate 80-90s. Review of Systems Review of Systems: All systems reviewed & are unremarkable except as noted in HPI & below Physical Exam Constitutional: well developed, well nourished, + obese and + edematous Neck: normal visual inspection and trachea midline Respiratory: normal respiratory effort and + cough; no respiratory distress and no labored breathing Auscultation: + diminished lung sounds (bilateral bases ); no crackles, no rales, no rhonchi and no wheezes Cardiovascular: Rate/Rhythm: + tachycardic and + irregularly irregular Heart Sounds: normal S1 and normal S2; no murmur Vessels: no JVD Extremities: + edema (+1 BLE ) Skin: no rashes, warm and dry (erythema noted on bilat lower extremities. ) Psychiatric: A+Ox3, euthymic affect Results & Data Vital Signs (Past 12 Hours) Vital Signs Temp Pulse Pulse Resp BP Pulse Ox O2 Del Method 02/10/24 08:16 36.4 C L 81 20 115/73 90 Room Air 02/10/24 07:43 97 H 02/10/24 04:36 36.5 C 80 17 109/75 94 Room Air 02/09/24 23:56 36.4 C L 90 17 117/78 94 Room Air 02/09/24 23:07 109 H Laboratory Results Comprehensive Metabolic Panel 02/10/24 Range/Units 05:46 Sodium 139 (136-145) mmol/L Potassium 3.5 (3.5-5.1) mmol/L Chloride 94 L (98-107) mmol/L Carbon Dioxide 33 H (21-32) mmol/L BUN 40 H (6-23) mg/dl Creatinine 1.47 H (0.6-1.2) mg/dl Glucose 119 H (70-99(Fasting)) mg/dl Calcium 11.5 H (8.6-10.3) mg/dl Intake and Output 02/09/24 02/10/24 02/10/24 22:59 06:59 14:59 Intake Total 100 / 580 100 / 100 Output Total 1300 / 4350 1900 / 4350 Balance -1200 / -3770 -1900 / -3770 100 / 100 Intake: IV 100 / 100 100 / 100 Magnesium Sulfate / D5w 1 gm In 100 / 100 100 / 100 100 ml @ 50 mls/hr IV ONE ONE Rx#:[id number] Output: Urine 1300 / 4350 1900 / 4350 Other: Weight 143.6 kg Weight Measurement Method Standing Scale
[2024-02-10] MEDS: MAGNESIUM CHLORIDE W/CALCIUM 64MG DELAYED REL TAB PO SCH (09:21)
[2024-02-10] MEDS: FUROSEMIDE 40 MG/4 ML VIAL IV SCH (13:33)
--- NOTE | 2024-02-10 16:27 | Hospitalist Progress Note ---
Date of Service February 10, 2024 Assessment & Plan (1) Atrial fibrillation with rapid ventricular response: (2) Heart failure with acute decompensation, type unknown: Plan: (1) Atrial fibrillation with rapid ventricular response: (2) Heart failure with acute decompensation, type unknown: Plan per previous hospitalist notes with addendum: Patient went to her PCP as she has been feeling fatigued all summer. Reported to have retaining fluids in her feet and legs; has gained 40 pounds in the last 2-3 weeks. Reports increasing shortness of breath even with minor exertion. Her Fitbit noted her irregular heart rate. Her creatinine is mildly elevated to 1.25, calcium slightly elevated 10.9 BNP elevated to 378 Chest x-ray personally reviewed; reveals cardiomegaly with mild pulmonary congestion ATRIAL FIBRILLATION IN RVR CHADSVASC 4 echo:EF 60 to 65%, mild concentric LVH, left atrium moderately dilated, mild tricuspid regurgitation, on Metoprolol 25mg QID, Heparin drip 02/05 Heart rate improving, remains in atrial fibrillation Metoprolol transition to 50 mg 3 times daily, heparin continued 02/06 Remains in A-fib, heart rate in the 70s Continue metoprolol tartrate 50 mg 3 times daily Heparin drip transition to Eliquis 5 mg twice daily 02/07 required IV Metoprolol 5mg earlier for RVR monitor closely 02/08 Transition to Toprol XL 75 mg twice daily Heart rate seems to be stable so far Monitor closely 02/09 Toproll XL increased to 100mg BID Acute CHF exacerbation with preserved ejection fraction Acute diastolic CHF Creatinine trending up, from 1.4 currently 1.6 Patient -4.5 L output so far Hold Lasix tonight Repeat BMP tomorrow 02/07 Crea improved to 1.3 reduce Lasix to 40mg IV BID monitor renal function 02/08 Continues to diurese Creatinine stable at 1.3 Continue Lasix 40 mg IV twice daily 02/09 Lasix continued Chronic conditions; Type 2 diabetes mellitus -hold home agents. continue on insulin. Will need to stop pioglitazone Hypertensionhold lisinopril, nifedipine. Started on metoprolol. Dyslipidemiacontinue Lipitor. Aspirin currently on hold; seems to be on it for primary prevention. Full code DVT prophylaxis : Eliquis twice daily Disposition Patient would like to transition to home with home health as much as possible Admission and Anticipated Discharge Date Admission Date: February 04, 2024 Subjective ff up for afib rvr, etc seen resting in bed, comfortable states she feels better overall no chest pain, dyspnea, palpitations, dizziness no other symptoms Review of Systems Review of Systems: all noted and negative except for above Physical Exam Physical Exam: General- oriented x 3, not in distress, speaks in sentences with no effort or accessory muscle use Eyes- anicteric Neck- no JVD Lungs- clear breath sounds bilaterally, no crackles/wheezing Heart- normal rate, irreg irregular rhythm; no murmurs Abdomen- normal bowel sounds, nondistended, soft, nontender Extremities- gr 2 pretibial edema, no calf tenderness Neuro- alert, oriented x 3; no gross focal neurologic deficits Skin- warm & dry Results & Data Results & Data Vital Signs (Past 12 Hours) Vital Signs Temp Pulse Pulse Resp BP Pulse Ox O2 Del Method 02/10/24 11:28 36.4 C L 81 18 134/83 91 Room Air 02/10/24 08:16 36.4 C L 81 20 115/73 90 Room Air 02/10/24 07:43 97 H 02/10/24 04:36 36.5 C 80 17 109/75 94 Room Air all noted and reviewed including below
[2024-02-10] MEDS: METOPROLOL SUCC 50MG EXT REL TAB PO SCH (20:41)
[2024-02-11 08:00] LABS: BUN Creatinine Ratio 30.9 (10-20); Calcium 11.4 mg/dl (8.6-10.3); Creatinine Clr Calc Pharmacy 50.6 ml/min; Est GFR (African American) 44.3 ml/min; Est GFR (Non-African American) 38.2 ml/min; Magnesium 1.4 mg/dl (1.7-2.4); Potassium 3.3 mmol/L (3.5-5.1)
--- NOTE | 2024-02-11 08:57 | Cardiology Progress Note ---
Date of Service February 11, 2024 Assessment & Plan (1) Atrial fibrillation with rapid ventricular response: (2) Heart failure with acute decompensation, type unknown: Plan Assessment: 73 year-old female presents with acute HF symptoms progressively worsening over the past 2-3 months with new onset atrial fibrillation with RVR. Plan: -Patient remains in atrial fibrillation with rates 100-120bpm. She denies any active palpitations making it difficult to determine if she has had A-fib and in particular elevated rates for a long period of time. -Denies any prior cardiac history other being told she had a "innocent murmur" as a child. -Obtain echocardiogram to assess overall structure and function as well as any evidence to suggest etiology for her symptoms. -Continue to monitor on telemetry. Continue Metoprolol tartrate 25mg Q6H. Will discuss further titration pending echocardiogram results for better rate control. -patient is diuresing well. Continue Furosemide 40mg IV BID. -maintain strict I&O, daily weights, chair or standing scale if possible. -maintain serum K> 4.0 and serum mag greater than 2.0 -Provide CHF teaching. -Close monitoring of renal function. -[id number] score of 4 (CHF, age 65-74, gender, diabetic). Continue Heparin gtt at this time, will consider transition to PO oral anticoagulation possibly with Eliquis pending echocardiogram and cost affordability. Recommend this is checked with case management. - Will reassess volume status in the AM. 02/06/2024: -Patient showing clinical improvement since time of admission, remains volume overloaded. - Negative 3 kg weight reduction and currently -1000cc fluid balance. -Continue Furosemide 40mg IV BID -HR remains elevated, will change Metoprolol tartrate dosing to 50mg PO TID. -Continue to monitor on telemetry. -maintain strict I&O, daily weights, chair or standing scale if possible. -maintain serum K> 4.0 and serum mag greater than 2.0 -Provide CHF teaching. -Close monitoring of renal function. -[id number] score of 4 (CHF, age 65-74, gender, diabetic). Continue Heparin gtt at this time, will consider transition to PO oral anticoagulation with Eliquis. -Will reassess fluid status in the AM 02/07/2024: -Slight improvement in patient's resting heart rate. Continue Metoprolol tartrate 50mg PO TID. -Patient continues to diurese well, but remains hypervolemic. Continue Fur osemide 40mg IV BID -5kg weight reduction per I&O record. -Continue to monitor on telemetry. -maintain strict I&O, daily weights, chair or standing scale if possible. -maintain serum K> 4.0 and serum mag greater than 2.0 -Provide CHF teaching. -Close monitoring of renal function. -[id number] score of 4 (CHF, age 65-74, gender, diabetic). Stop Heparin gtt in favor of starting Eliquis 5mg PO BID. -Encourage patient to elevate legs while in bed or in recliner. Would recommend use of compression wraps to assist in mobilizing fluid. -Reassess fluid status in the AM. 02/08/24 -BP currently well controlled -HR are trending down -continue to replete Mg, recommend maintaining above 2.0 - still appears volume overloaded on exam we will give 1 time dose metolazone - continue IV Lasix 40 mg twice daily - we will transitioned to extended-release metoprolol for better control of heart rates, will start Toprol 50 mg twice daily - denies any previous diagnosis of obstructive sleep apnea we will need this worked up as an outpatient - if renal function improves could also consider adding spironolactone/digoxin for right-sided heart failure 02/09/24 -HR has improved -BP well controlled -renal function stable -weight trended down 14 lbs over the past 2 days -still feels that she is fluid overloaded -continue to replete Mg, recommend maintaining above 2.0 -maintain strict I&O, daily weights, chair or standing scale if possible -low Na diet -continue Toprol, apixaban -continue IV lasix, will give additional dose of metolazone today - denies any previous diagnosis of obstructive sleep apnea we will need this worked up as an outpatient - if renal function improves could also consider adding spironolactone/digoxin for right-sided heart failure 02/10/2024: -Heart rates continue to improve. Continue Toprol xl 75mg PO BID -While fluid status continues to improve, remains volume overloaded. Renal function remains stable and patient has responded well to intermittent doses of Metolazone. -Weights continue to trend down. -23 kg per I&O report which may not be accurate. Currently negative 4L fluid balance. -Will increase Furosemide from 40mg IV BID to TID -Agree with IV magnesium supplementation as well as PO supplementation. -Monitor renal function and Electrolytes closely. -Goal serum Mag > 2.0 and Serum K > 4.0 -Reinforce CHF teaching. Strict I&Os, daily weight, 1500ml fluid restriction and less than 2G sodium intake daily -Encourage use of brynn wraps for compression while elevating legs to assist in fluid mobilization. -Will need sleep study work up outpatient -Recommend overnight pulse oximetry study while in the hospital if renal function improves could also consider adding spironolactone/digoxin for right-sided heart failure. 02/11/2024: -patient responding well to increase of beta fabien. Continue Toprol xl at 100mg PO BID. -Continuing to diurese well, but remains hypervolemic. Renal function remains stable, slight improvement when compared with yesterday's labs. -Continue Furosemide 40mg IV TID -Will add Spironolactone 12.5mg for right sided heart failure. -Weights continuing to trend down with negative fluid balance. Continue with strict I&O and daily weights. -Goal serum Mag > 2.0 and Serum K > 4.0. Receiving PO magnesium supplement as well as additional IV Mag supplement. Be cautious with IV supplementation in the setting of need for aggressive diuresis. -Encourage use of brynn wraps for compression while elevating legs to assist in fluid mobilization. -Will need sleep study work up outpatient -CHF teaching instructions. -Overnight pulse oximetry completed which shows 6 events where patient's spo2 on room air dropped below 87% for a minimum of 30 seconds. large contributing factor to patient's right sided heart failure and again will need sleep study work up outpatient as patient would likely benefit for home supplemental oxygen at night, but more than likely will need CPAP pending sleep study. Case has been discussed with Dr. Polanco. Further recommendations regarding plan of care as per his assessment. I spent a total of 30 minutes on the date of service in preparation, delivery, documentation of the care provided to the patient excluding any time spent in the performance of separately billed services. CINDY Vazquez [facility] Admission and Anticipated Discharge Date Admission Date: February 04, 2024 Supervising Physician Co-Signing Physician Notes Patient was seen and personally examined, chart, medications telemetry reviewed. Care management discussed with advanced provider as above 73-year-old female with acute on chronic heart failure with preserved ejection fraction right greater than left. Evidence of pulmonary hypertension by indirect measurement possible pickwickian etiology. Atrial fibrillation with elevated ventricular response rate Has responded to diuretics with steady diuresis Will continue IV diuretics today discontinue after p.m. dose with plan to transition to oral dosing in a.m. Initiate spironolactone Would recommend 2 L nasal cannula oxygen nocturnally Heart rates coming under better control with increased beta-fabien. Increase activity Subjective 02/11/24: Patient seen and examined in follow up today. Feeling well. Denies any chest pain or pressure, no palpitations. admits to feeling "slightly winded" when ambulating to the restroom, but reports it continues to improve. Labs, vitals, diagnostics, telemetry and documentation reviewed. Telemetry reviewed showing Atrial fibrillation with rates 70-80's. There is notation of a few short burst of rates 120-160 with ambulation. -3470ml fluid balance. -28kg weight deficit as per I&O record. Review of Systems Review of Systems: All systems reviewed & are unremarkable except as noted in HPI & below Physical Exam Constitutional: well developed, well nourished, + obese and + edematous Neck: normal visual inspection and trachea midline Respiratory: normal respiratory effort and + cough; no respiratory distress and no labored breathing Auscultation: + diminished lung sounds (bilateral bases ); no crackles, no rales, no rhonchi and no wheezes Cardiovascular: Rate/Rhythm: + irregularly irregular Heart Sounds: normal S1 and normal S2; no murmur Vessels: dorsalis pedis pulses present; no JVD Extremities: + edema (+1 BLE ) Skin: no rashes, warm and dry (erythema noted on bilat lower extremities. ) Psychiatric: A+Ox3, euthymic affect Results & Data Vital Signs (Past 12 Hours) Vital Signs Temp Pulse Pulse Pulse Resp BP Pulse Ox 02/11/24 07:37 88 02/11/24 07:13 36.5 C 80 19 134/79 94 02/11/24 02:57 36.6 C 90 18 123/78 93 02/10/24 23:46 92 H 02/10/24 23:15 88 02/10/24 22:44 36.8 C 81 18 120/62 93 Pulse Ox O2 Del Method O2 Del Method 02/11/24 07:37 02/11/24 07:13 Room Air 02/11/24 02:57 Room Air 02/10/24 23:46 02/10/24 23:15 94 Room Air 02/10/24 22:44 Room Air Laboratory Results Comprehensive Metabolic Panel 02/11/24 Range/Units 07:01 Sodium 138 (136-145) mmol/L Potassium 3.3 L (3.5-5.1) mmol/L Chloride 91 L (98-107) mmol/L Carbon Dioxide 37 H (21-32) mmol/L BUN 42 H (6-23) mg/dl Creatinine 1.36 H (0.6-1.2) mg/dl Glucose 111 H (70-99(Fasting)) mg/dl Calcium 11.4 H (8.6-10.3) mg/dl Intake and Output 02/10/24 02/11/24 02/11/24 22:59 06:59 14:59 Intake Total 880 / 1630 200 / 1630 Output Total 3250 / 5100 650 / 5100 Balance -2370 / -3470 -450 / -3470 Intake: Oral 880 / 1530 200 / 1530 Output: Urine 3250 / 5100 650 / 5100 Other: Weight 138.709 kg Weight Measurement Method Built in [facility]
[2024-02-11] MEDS: MAGNESIUM SULFATE / D5W 1 GM/100 ML BAG IV SCH (09:15)
[2024-02-11] MEDS: POTASSIUM CHLORIDE CRTAB 20 MEQ TABCR PO SCH (09:15)
--- NOTE | 2024-02-11 10:53 | Hospitalist Progress Note ---
Date of Service February 11, 2024 Assessment & Plan (1) Atrial fibrillation with rapid ventricular response: (2) Heart failure with acute decompensation, type unknown: Plan: (1) Atrial fibrillation with rapid ventricular response: (2) Heart failure with acute decompensation, type unknown: Plan per previous hospitalist notes with addendum: Patient went to her PCP as she has been feeling fatigued all summer. Reported to have retaining fluids in her feet and legs; has gained 40 pounds in the last 2-3 weeks. Reports increasing shortness of breath even with minor exertion. Her Fitbit noted her irregular heart rate. Her creatinine is mildly elevated to 1.25, calcium slightly elevated 10.9 BNP elevated to 378 Chest x-ray personally reviewed; reveals cardiomegaly with mild pulmonary congestion ATRIAL FIBRILLATION IN RVR CHADSVASC 4 echo:EF 60 to 65%, mild concentric LVH, left atrium moderately dilated, mild tricuspid regurgitation, [employer] consulted remains in A fib Metoprolol PO titrated Toprol XL increased to 100mg BID yesterday HR 80s so far transitioned from Heparin to Eliquis Acute CHF exacerbation with preserved ejection fraction Acute diastolic CHF Lasix IV titrated crea increased to 1.6 but remains 1.3-1.4 now -15L fluid balance so far still has BL lower ext edema Lasix IV increased to 40mg IV TID yesterday Chronic conditions; Type 2 diabetes mellitus -hold home agents. continue on insulin. Will need to stop pioglitazone Hypertensionhold lisinopril, nifedipine. Started on metoprolol. Dyslipidemiacontinue Lipitor. Aspirin currently on hold; seems to be on it for primary prevention. Full code DVT prophylaxis : Eliquis twice daily Disposition Patient would like to transition to home with home health upon discharge d/c home when cleared by Cardiology Admission and Anticipated Discharge Date Admission Date: February 04, 2024 Subjective ff up for new onset a fib with RVR, etc seen resting in bed, comfortable states she feels fine overall no chest pain, dyspnea, palpitations, dizziness no other symptoms Review of Systems Review of Systems: all noted and negative except for above Physical Exam Physical Exam: General- oriented x 3, not in distress, speaks in sentences with no effort or accessory muscle use Eyes- anicteric Neck- no JVD Lungs- clear breath sounds bilaterally, no rales/wheezes Heart- normal rate,irregularly regular rhythm; no murmurs Abdomen- normal bowel sounds, nondistended, soft, nontender Extremities- grade 1-2 pretibial edema, no erythema/warmth/tenderness Neuro- alert, oriented x 3; no gross focal neurologic deficits Skin- warm & dry Results & Data Results & Data Vital Signs (Past 12 Hours) Vital Signs Temp Pulse Pulse Pulse Resp BP Pulse Ox 02/11/24 07:37 88 02/11/24 07:13 36.5 C 80 19 134/79 94 02/11/24 02:57 36.6 C 90 18 123/78 93 02/10/24 23:46 92 H 02/10/24 23:15 88 Pulse Ox O2 Del Method O2 Del Method 02/11/24 07:37 02/11/24 07:13 Room Air 02/11/24 02:57 Room Air 02/10/24 23:46 02/10/24 23:15 94 Room Air all noted and reviewed including below
[2024-02-11] MEDS: SPIRONOLACTONE 12.5 MG TAB PO SCH (12:19)
[2024-02-12 08:05] LABS: BUN Creatinine Ratio 33.8 (10-20); Calcium 11.5 mg/dl (8.6-10.3); Creatinine Clr Calc Pharmacy 45.1 ml/min; Est GFR (African American) 39.1 ml/min; Est GFR (Non-African American) 33.7 ml/min; Magnesium 1.6 mg/dl (1.7-2.4); Potassium 3.8 mmol/L (3.5-5.1)
--- NOTE | 2024-02-12 08:23 | Cardiology Progress Note ---
Date of Service February 12, 2024 Assessment & Plan (1) Atrial fibrillation with rapid ventricular response: (2) Heart failure with acute decompensation, type unknown: Plan Assessment: 73 year-old female presents with acute HF symptoms progressively worsening over the past 2-3 months with new onset atrial fibrillation with RVR. Plan: -Patient remains in atrial fibrillation with rates 100-120bpm. She denies any active palpitations making it difficult to determine if she has had A-fib and in particular elevated rates for a long period of time. -Denies any prior cardiac history other being told she had a "innocent murmur" as a child. -Obtain echocardiogram to assess overall structure and function as well as any evidence to suggest etiology for her symptoms. -Continue to monitor on telemetry. Continue Metoprolol tartrate 25mg Q6H. Will discuss further titration pending echocardiogram results for better rate control. -patient is diuresing well. Continue Furosemide 40mg IV BID. -maintain strict I&O, daily weights, chair or standing scale if possible. -maintain serum K> 4.0 and serum mag greater than 2.0 -Provide CHF teaching. -Close monitoring of renal function. -[id number] score of 4 (CHF, age 65-74, gender, diabetic). Continue Heparin gtt at this time, will consider transition to PO oral anticoagulation possibly with Eliquis pending echocardiogram and cost affordability. Recommend this is checked with case management. - Will reassess volume status in the AM. 02/06/2024: -Patient showing clinical improvement since time of admission, remains volume overloaded. - Negative 3 kg weight reduction and currently -1000cc fluid balance. -Continue Furosemide 40mg IV BID -HR remains elevated, will change Metoprolol tartrate dosing to 50mg PO TID. -Continue to monitor on telemetry. -maintain strict I&O, daily weights, chair or standing scale if possible. -maintain serum K> 4.0 and serum mag greater than 2.0 -Provide CHF teaching. -Close monitoring of renal function. -[id number] score of 4 (CHF, age 65-74, gender, diabetic). Continue Heparin gtt at this time, will consider transition to PO oral anticoagulation with Eliquis. -Will reassess fluid status in the AM 02/07/2024: -Slight improvement in patient's resting heart rate. Continue Metoprolol tartrate 50mg PO TID. -Patient continues to diurese well, but remains hypervolemic. Continue Fur osemide 40mg IV BID -5kg weight reduction per I&O record. -Continue to monitor on telemetry. -maintain strict I&O, daily weights, chair or standing scale if possible. -maintain serum K> 4.0 and serum mag greater than 2.0 -Provide CHF teaching. -Close monitoring of renal function. -[id number] score of 4 (CHF, age 65-74, gender, diabetic). Stop Heparin gtt in favor of starting Eliquis 5mg PO BID. -Encourage patient to elevate legs while in bed or in recliner. Would recommend use of compression wraps to assist in mobilizing fluid. -Reassess fluid status in the AM. 02/08/24 -BP currently well controlled -HR are trending down -continue to replete Mg, recommend maintaining above 2.0 - still appears volume overloaded on exam we will give 1 time dose metolazone - continue IV Lasix 40 mg twice daily - we will transitioned to extended-release metoprolol for better control of heart rates, will start Toprol 50 mg twice daily - denies any previous diagnosis of obstructive sleep apnea we will need this worked up as an outpatient - if renal function improves could also consider adding spironolactone/digoxin for right-sided heart failure 02/09/24 -HR has improved -BP well controlled -renal function stable -weight trended down 14 lbs over the past 2 days -still feels that she is fluid overloaded -continue to replete Mg, recommend maintaining above 2.0 -maintain strict I&O, daily weights, chair or standing scale if possible -low Na diet -continue Toprol, apixaban -continue IV lasix, will give additional dose of metolazone today - denies any previous diagnosis of obstructive sleep apnea we will need this worked up as an outpatient - if renal function improves could also consider adding spironolactone/digoxin for right-sided heart failure 02/10/2024: -Heart rates continue to improve. Continue Toprol xl 75mg PO BID -While fluid status continues to improve, remains volume overloaded. Renal function remains stable and patient has responded well to intermittent doses of Metolazone. -Weights continue to trend down. -23 kg per I&O report which may not be accurate. Currently negative 4L fluid balance. -Will increase Furosemide from 40mg IV BID to TID -Agree with IV magnesium supplementation as well as PO supplementation. -Monitor renal function and Electrolytes closely. -Goal serum Mag > 2.0 and Serum K > 4.0 -Reinforce CHF teaching. Strict I&Os, daily weight, 1500ml fluid restriction and less than 2G sodium intake daily -Encourage use of brynn wraps for compression while elevating legs to assist in fluid mobilization. -Will need sleep study work up outpatient -Recommend overnight pulse oximetry study while in the hospital if renal function improves could also consider adding spironolactone/digoxin for right-sided heart failure. 02/11/2024: -patient responding well to increase of beta fabine. Continue Toprol xl at 100mg PO BID. -Continuing to diurese well, but remains hypervolemic. Renal function remains stable, slight improvement when compared with yesterday's labs. -Continue Furosemide 40mg IV TID -Will add Spironolactone 12.5mg for right sided heart failure. -Weights continuing to trend down with negative fluid balance. Continue with strict I&O and daily weights. -Goal serum Mag > 2.0 and Serum K > 4.0. Receiving PO magnesium supplement as well as additional IV Mag supplement. Be cautious with IV supplementation in the setting of need for aggressive diuresis. -Encourage use of brynn wraps for compression while elevating legs to assist in fluid mobilization. -Will need sleep study work up outpatient -CHF teaching instructions. -Overnight pulse oximetry completed which shows 6 events where patient's spo2 on room air dropped below 87% for a minimum of 30 seconds. large contributing factor to patient's right sided heart failure and again will need sleep study work up outpatient as patient would likely benefit for home supplemental oxygen at night, but more than likely will need CPAP pending sleep study. Case has been discussed with Dr. Polanco. Further recommendations regarding plan of care as per his assessment. 02/12/2024: -Patient continues to improve from a cardiac perspective. -Labs remain stable and she has diuresed another 2L overnight. -Stop IV Furosemide in favor of starting Torsemide 40mg by mouth daily. -Continue Spironolactone 12.5mg by mouth daily. -Continue Toprol xl 100mg by mouth Twice daily. -Continue oral magnesium supplement. -Continue Eliquis 5mg by mouth Twice daily. -Patient is appropriate for discharge to home when ok with primary team. -Orders placed for outpatient CBC, BMP and Mag for one week. patient is aware. -Will need close hospital discharge follow up/establish care with cardiology in 2-4 weeks. Will ask for office to contact patient. -CHF instructions reinforced including low sodium diet, daily weights and need to report to office any weight gain of 3lbs overnight or 5lbs in one week. I spent a total of 30 minutes on the date of service in preparation, delivery, documentation of the care provided to the patient excluding any time spent in the performance of separately billed services. CINDY Vazquez [facility] Admission and Anticipated Discharge Date Admission Date: February 04, 2024 Supervising Physician Co-Signing Physician Notes Patient was seen and personally examined, chart, medications telemetry reviewed. Care management discussed with advanced provider as above 73-year-old female with acute on chronic heart failure with preserved ejection fraction right greater than left. Evidence of pulmonary hypertension by indirect measurement possible pickwickian etiology. Atrial fibrillation with elevated ventricular response rate Has responded to diuretics with steady diuresis Plan as outlined above Subjective 02/12/24: Patient seen and examined in follow up today. Feeling well. She is eager to go home. Denies any chest pain, pressure, palpitations, shortness of breath, PND, pre- syncope, or syncope. Reports significant improvement/decrease in her lower extremity edema. Labs, vitals, diagnostics, telemetry and documentation reviewed. Telemetry reviewed showing Atrial fibrillation Rates 90's. No acute events overnight. -2265ml fluid balance Review of Systems Review of Systems: All systems reviewed & are unremarkable except as noted in HPI & below Physical Exam Constitutional: well developed, well nourished and + obese Neck: normal visual inspection and trachea midline Respiratory: normal respiratory effort and + cough; no respiratory distress and no labored breathing Auscultation: + diminished lung sounds (bilateral bases ); no crackles, no rales, no rhonchi and no wheezes Cardiovascular: Rate/Rhythm: + tachycardic and + irregularly irregular Heart Sounds: normal S1 and normal S2; no murmur Vessels: dorsalis pedis pulses present; no JVD Extremities: + edema (trace to +1 BLE) Skin: no rashes, warm and dry (erythema noted on bilat lower extremities. ) Psychiatric: A+Ox3, euthymic affect Results & Data Vital Signs (Past 12 Hours) Vital Signs Temp Pulse Pulse Resp BP Pulse Ox O2 Del Method 02/12/24 07:58 36.9 C 106 H 20 99/65 L 94 Room Air 02/12/24 07:40 Room Air 02/12/24 02:52 36.6 C 82 18 120/75 96 Room Air 02/11/24 23:33 106 H 02/11/24 23:09 36.6 C 90 18 100/60 94 Room Air Laboratory Results Comprehensive Metabolic Panel 02/12/24 Range/Units 06:48 Sodium 138 (136-145) mmol/L Potassium 3.8 (3.5-5.1) mmol/L Chloride 90 L (98-107) mmol/L Carbon Dioxide 35 H (21-32) mmol/L BUN 51 H (6-23) mg/dl Creatinine 1.51 H (0.6-1.2) mg/dl Glucose 112 H (70-99(Fasting)) mg/dl Calcium 11.5 H (8.6-10.3) mg/dl Intake and Output 02/11/24 02/12/24 02/12/24 22:59 06:59 14:59 Intake Total 300 / 959.167 Output Total 1974 650 / 3225 150 / 150 Balance -19742265.833 -350 / -2265.833 -150 / -150 Intake: Oral 300 / 780 Output: Urine 1974 650 / 5 150 / 150 Other: Weight 136.6 kg Weight Measurement Method Standing Scale
[2024-02-12] MEDS: TORSEMIDE 20 MG TAB PO SCH (09:18)
[2024-02-12 11:16] VITALS: BP 109/60; TEMP 97.9
--- NOTE | 2024-02-12 13:31 | Discharge Summary ---
Date of Service February 12, 2024 Admission HPI Per Admitting Provider Patient is a 73-year-old female with possible history of primary hyperparathyroidism, dyslipidemia, type 2 diabetes mellitus, hypertension, CKD stage IIIb, morbid obesity, history of breast cancer Patient went to her PCP as she has been feeling fatigued all summer. She was reported to have retaining fluids in her feet and legs; has gained 40 pounds in the last 2-3 weeks. Reports increasing shortness of breath even with minor exertion. Her Fitbit noted her irregular heart rate. Patient was referred for admission to our ED. Patient has only has remote echo from 2002 which showed normal EF. On presentation to the ED, patient was normotensive, afebrile and was in atrial fibrillation. Her creatinine is mildly elevated to 1.25, calcium slightly elevated 10.9 BNP elevated to 378 Chest x-ray personally reviewed; reveals cardiomegaly with mild pulmonary congestion Patient was referred for admission to the hospital. Admission Exam Per Admitting Provider Constitutional: Alert oriented x 3; morbidly obese. Respiratory: Bilateral clear breath sounds. Cardiovascular: Irregular, no murmur, no edema Vessels: no JVD or carotid bruit Chest: normal inspection of chest Abdomen: normal bowel sounds, soft, nontender, no hepatosplenomegaly Musculoskeletal: 3+ pitting edema present up to knee Neurologic: PERRL, EOMI, accommodation nl, no face palsy, no dysarthria CN's II- XI intact bilaterally and moves all extremities Psychiatric: A+Ox3, euthymic affect Principal Diagnosis Atrial fibrillation with rapid ventricular rate Heart failure with preserved ejection fraction with acute decompensation Nocturnal hypoxia Discharge Exam Constitutional + well hydrated; no acute distress Eyes PERRL, conjunctivae normal, anicteric sclerae ENMT external ear and nose normal, oropharynx normal Respiratory normal respiratory effort, lungs clear to auscultation Cardiovascular Rate/Rhythm: + irregularly irregular S1 S2 Gastrointestinal (Abdomen) normal bowel sounds, soft, nontender, no hepatosplenomegaly Musculoskeletal +pedal edema Neurologic PERRL, EOMI, accommodation nl, no face palsy, no dysarthria Psychiatric A+Ox3, euthymic affect Discharge Data Allergies Allergy/AdvReac Type Severity Reaction Status Date / Time adhesive Allergy Mild RED SKIN, Verified 02/04/24 17:20 BLISTERS Consultations 02/04/24 17:35 ED Decision to Admit Stat 02/04/24 21:18 Consult Cardiology Routine Hospital Course (1) Atrial fibrillation with rapid ventricular response: (2) Heart failure with acute decompensation, type unknown: Patient went to her PCP as she has been feeling fatigued all summer. Reported to have retaining fluids in her feet and legs; had gained 40 pounds in the last 2-3 weeks. Reports increasing shortness of breath even with minor exertion. Her Fitbit noted her irregular heart rate. Her creatinine is mildly elevated to 1.25, calcium slightly elevated 10.9 BNP elevated to 378 Chest x-ray revealed cardiomegaly with mild pulmonary congestion ATRIAL FIBRILLATION IN RVR Acute CHF exacerbation with preserved ejection fraction [facility] 4 Echo:EF 60 to 65%, mild concentric LVH, left atrium moderately dilated, mild tricuspid regurgitation, Patient was treated with IV diuretics Gun Stocker evaluated and made medication adjustments while inpatient Patient's home lisinopril and nifedipine were stopped Patient started on metoprolol succinate 100mg BID, torsemide 40mg daily, Spironolactone 12.5mg daily Heart rate is better controlled Patient is set up to followup Cardiology who will also monitor labs Also discharged on Eliquis 5mg bid for stroke prophylaxis ASA 81mg and NSAID stopped Chronic conditions; Type 2 diabetes mellitus -continue home antidiabetic. Follow up with PCP Hypertensionmed changes as above. Dyslipidemiacontinue Lipitor Total Time Total Time Spent Total Time Spent (In Minutes): 40 Total Time Includes: Examination of the Patient, Discharge Planning, Medication Reconciliation and Communication With Other Providers Discharge Plan Discharge Items Patient Disposition: Home - Home Health Services Reason For Visit: A FIB WITH RVR Discharge Diagnosis: Atrial fibrillation with rapid ventricular rate Heart failure with preserved ejection fraction with acute decompensation Nocturnal hypoxia Activity: Resume your previous activity Non-emergency contact: Primary Care Provider and Gun Stocker Call non-emergency contact if: you have any medication questions and your symptoms worsen Follow-up/Referrals: Joelle Meredith PA-C [Primary Care Provider] - ( Date & Time 02/18/2024 1:00 PM Provider Joelle Meredith PA-C Department [facility] ) Rosina Clinton CRNP [Nurse Practitioner] - (The Cardiology office will contact you regarding a follow up appointment and lab work.) Diet: Carb Consistent or DM2, Heart Healthy and Low Sodium (2gm) Fluids: 1800ml (7 cups) Addtl Attending Provider Instructions: Mrs Su You came to the hospital and was managed for the above listed diagnoses. -Your lisinopril and nifedipine were stopped -You were started on metoprolol succinate, torsemide and spironolactone for heart failure and better heart rate/blood pressure control. -You were also started on eliquis, a blood thinner to reduce risk of stroke associated with Afib. -Please stop your Aspirin 81mg now you are on eliquis -Please stop your diclofenac and avoid other NSAIDS such as advil, motrin, naproxen, ibuprofen etc as you have risk of increased bleeding with these. Use tylenol as needed for pain. Continue your magnesium tablet. Please adhere to dietary and fluid restriction as educated Please ensure you do the labs recommended by Cardiology and follow up result with them. You also need oxygen at bedtime for now at 2L/min until you can get a sleep study done. Your Primary Doctor can help arrange sleep study. Please ensure follow up with your Primary Doctor and Cardiology. It was a pleasure taking care of you. Pending Studies at Discharge: No Stand-Alone Forms: [facility], Smoking Cessation Medications and DC Order Prescriptions: New Eliquis 5 mg Tablet 5 mg PO BID Qty: 60 0RF torsemide 20 mg Tablet 40 mg PO QAM 30 Days Qty: 60 0RF metoprolol succinate 50 mg Tablet Extended Release 24 Hr 100 mg PO BID Qty: 120 0RF spironolactone 25 mg Tablet 12.5 mg PO DAILY Qty: 30 0RF Continued pioglitazone 30 mg tablet 30 mg PO HS cholecalciferol (vitamin D3) [Vitamin D3] 50 mcg (2,000 unit) Tablet 50 mcg PO QAM cinnamon bark [Cinnamon] 500 mg Capsule 500 mg PO AMHS atorvastatin 40 mg tablet 40 mg PO QAM metformin 500 mg tablet extended release 24 hr 500 mg PO QAM Jardiance 10 mg tablet 10 mg PO QAM magnesium 500 mg Tablet 15 mg PO DAILY Discontinued aspirin [Aspirin Low-Strength] 81 mg Tablet,Delayed Release (Dr/Ec) 81 mg PO HS nifedipine 90 mg tablet extended release 24hr 90 mg PO QAM lisinopril 40 mg tablet 40 mg PO QAM diclofenac sodium 75 mg tablet,delayed release (DR/EC) 75 mg PO DAILY PRN (Reason: Pain) Rx Instructions: uses rarely Discharge Orders: Discharge Order- CHF (Routine); Ordered 02/12/24 Ordered By: Shantel Mitchell/Other Patient Handouts: Managing Type 2 Diabetes Admission Data Admit Date/Time: 02/04/24 17:41 Attending Provider: Shantel Delong I. Admit Provider: Alex Aguilar Primary Care Provider: Joelle Meredith Other Providers: Alex Aguilar; Reza Jeong; [facility]; Bharath Potts Other Interventions: Discharge Summary Assessment (RN) Last Done: 02/12/24 13:41
[2024-02-12 13:44] VITALS: RESP 19; O2SAT 93
[2024-02-12 14:01] VITALS: PULSE 101
== END 2024-02-12 14:44 | disposition home health service (06) | DRG 291 ==
LOC: ED 15:53 → SUATTDRO 17:41 → 2S 17:41
DX: I27.29 Other secondary pulmonary hypertension; Z79.82 Long term (current) use of aspirin; I48.0 Paroxysmal atrial fibrillation; Z68.43 Body mass index [BMI] 50.0-59.9, adult; Z79.84 Long term (current) use of oral hypoglycemic drugs; E78.5 Hyperlipidemia, unspecified; I50.33 Acute on chronic diastolic (congestive) heart failure; Z91.048 Other nonmedicinal substance allergy status; Z85.3 Personal history of malignant neoplasm of breast; E11.22 Type 2 diabetes mellitus with diabetic chronic kidney disease; R09.02 Hypoxemia; I07.1 Rheumatic tricuspid insufficiency; I13.0 Hypertensive heart and chronic kidney disease with heart failure and stage 1 through stage 4 chronic kidney disease, or unspecified chronic kidney disease; N18.32 Chronic kidney disease, stage 3b; I48.19 Other persistent atrial fibrillation; G47.33 Obstructive sleep apnea (adult) (pediatric); E66.01 Morbid (severe) obesity due to excess calories; E21.0 Primary hyperparathyroidism; Z79.899 Other long term (current) drug therapy